=== PATIENT | female | born 1945 | race Caucasian/White ===

== ENCOUNTER 2020-08-06 09:30 | Outpatient (CLI) | payer MEDICARE, OTHER, SELFPAY ==
--- NOTE | 2020-08-14 09:13 | WPDPFTINT ---
PFT Interpretation PFT Interpretation: This PFT met all criteria for ATS standards and reproducibility FEV/FVC post bronchodilator 84% of predicted FEV1 69% or 1.21 liters FVC 57% or 1.45 liters TLC 68% or 3.00 liters RV 82% RV/TLC 49% DLCO 34% when adjusted for alveolar volume but not adjusted for hemoglobin Flow volume loops showed a restrictive ventilatory defect Impression: Restrictive ventilatory defect with severely reduced diffusion capacity. This fits a pattern of ILD but obesity may also contribute to restriction. Clinical correlation is advised.
--- NOTE | 2020-08-14 09:35 | WPDSIXMINUTE ---
Six Minute Walk Six Minute Walk: The patients O2 sats started at 94% and dropped as low as 90% Total walk distance 182.88 meters conclusion: This patient does not qualify for home oxygen therapy
== END 2020-08-06 09:31 | disposition home or self-care (01) ==
LOC: ANHPFT 09:33
PROVIDERS: Visit Provider Nurse Practitioner
DX: J84.9 Interstitial pulmonary disease, unspecified (principal)
CPT/HCPCS: 94060; 94618; 94726; 94729

== ENCOUNTER 2020-09-14 11:10 | Inpatient (IN) | payer MEDICARE, OTHER, SELFPAY ==
[2020-09-14] VITALS (32 sets, daily range): BP systolic 120–193; BP diastolic 33–95; PULSE 77–110; RESP 14–45; TEMP 36.2–36.9; O2SAT 83–100; BMI 36.1
--- NOTE | ~2020-09-14 | CT_ITS ---
EXAMINATION: CT chest high resolution wo ar DATE: 09/15/2020 13:35 INDICATION: Interstitial lung disease TECHNIQUE: Computed tomography (CT) of the chest was performed without intravenous contrast. The dose -length product was 585.13 mGy-cm. Automated exposure control and iterative reconstruction technique were employed. COMPARISON: CT dated 09/26/2019 FINDINGS: Status post median sternotomy for CABG. Cardiomegaly. There is atherosclerosis of the aorta and coronary arteries. No significant pleural or pericardial effusion. There is extensive patchy air space consolidation and groundglass opacification throughout all lobes, consistent with pneumonia. Le ss focal consolidation present in the right upper lobe posteriorly. No endobronchial lesions. There i s a 6 mm right upper lobe nodule, image 49. There is a subsolid 1.8 cm right right upper lobe, image 54. There is interlobular septal thickening with a basilar predominance. IMPRESSION: 1. Interlobular septal thickening, patchy groundglass opacification as well as focal areas of airspac e consolidation throughout both lungs. Differential diagnosis includes pneumonia, edema and/or chroni c interstitial lung disease. 2: Focal solid and some solid nodules of the right upper lobe, not seen on prior examination. These a re most likely infectious/inflammatory, although neoplasm is not excluded. Reviewed, dictated and finalized at location A. IMPRESSION: 1. Interlobular septal thickening, patchy groundglass opacification as well as focal areas of airspace consolidation throughout both lungs. Differential diagn osis includes pneumonia, edema and/or chronic interstitial lung disease. 2: Focal solid and some solid nodules of the right upper lobe, not seen on prio r examination. These are most likely infectious/inflammatory, although neoplasm is not excluded.
--- NOTE | ~2020-09-14 | XR_ITS ---
EXAMINATION: XR chest 2V DATE: 09/14/2020 13:33 INDICATION: Shortness of breath. Interstitial lung disease. TECHNIQUE: frontal and lateral views of the chest were obtained. COMPARISON: Chest radiograph dated 10/08/[address] dated 09/26/2019 FINDINGS: Cardiomegaly with pulmonary vascular congestion. Bronchial wall thickening versus peribronchial cuffi ng at the bilateral lower lung zones where there are also increased interstitial and airspace opaciti es. No pleural effusion or pneumothorax. Median sternotomy wires and interval change of prior mitral and tricuspid valve repairs. Three lead pacemaker/AICD seen with leads projecting over the expected l ocations of the right atrial appendage, apex of the right ventricle and overlying the left ventricle likely having traversed the coronary sinus. There is also an epicardial pacemaker with 2 leads termin ating over the lateral side of the right atrium and 2 additional leads projecting over the lateral wa ll of the left ventricle and inferior wall of the right ventricle. IMPRESSION: 1. Interstitial and airspace opacities in the bilateral lower lung zones most likely congestive heart failure related pulmonary edema with differential including pneumonia and atelectasis. 2. Cardiomegaly with change of prior mitral and tricuspid valve repairs. Reviewed, dictated and finalized at location B. IMPRESSION: 1. Interstitial and airspace opacities in the bilateral lower lung zones most l ikely congestive heart failure related pulmonary edema with differential includ ing pneumonia and atelectasis. 2. Cardiomegaly with change of prior mitral and tricuspid valve repairs.
--- NOTE | 2020-09-14 11:50 | ECG_ITS ---
Measurements Intervals Adel Rate: 80 P: -80 VA: 140 QRS: 189 QRSD: 174 T: 9 QT: 417 QTc: 482 Interpretive Statements ELECTRONIC ATRIAL PACEMAKER ELECTRONIC VENTRICULAR PACEMAKER BASELINE WANDER- V5 NO FURTHER INTERPRETATION IS POSSIBLE ATYPICAL ECG Electronically Signed On 09-14-2020 12:50:17 CDT by Nick Ryan D.O.
[2020-09-14 12:44] LABS: Alveolar/Arterial O2 Gradient 168.3 mmHg; Base Excess ABG 0.7 mEq/l (+/-2.0); Fractional Inspired Oxygen 40 %; HCO3 ABG 25.6 mEq/l (22.0-26.0); Oxygen Content ABG 12.4 %vol (16.0-22.0); Oxygen Saturation ABG 93.5 % (95.0-100.0); Oxyhemoglobin 90.6 % THb (90.0-100.0); PCO2 ABG 42.5 mmHg (35.0-45.0); Total Hemoglobin 9.7 g/dL (12.0-18.0); pH ABG 7.398 (7.350-7.450)
[2020-09-14 12:45] LABS: Device NASAL CANNULA; Modified Allen's Test Pass; Site Drawn LEFT RADIAL
[2020-09-14 13:14] LABS: Basophils Absolute Auto 0.1 K/mm3 (0.0-0.1); Basophils Percent Auto 0.3 % (0.2-1.2); Eosinophils Percent Auto 0.2 % (0-4.4); Hematocrit 29.8 % (37.0-47.0); Hemoglobin 8.8 g/dL (12.0-15.0); Immature Granulocyte Absolute 0.24 K/mm3 (0.00-0.031); Immature Granulocyte Percent A 1.3 % (0-0.5); Lymphocytes Absolute Auto 0.23 K/mm3 (0.9-3.2); Lymphocytes Percent Auto 1.3 % (18.3-44.2); Mean Corpuscular HGB Conc 29.5 g/dl (32-36); Mean Corpuscular Hemoglobin 26.7 pg (26-34); Mean Corpuscular Volume 90.6 fl (80-100); Mean Platelet Volume 9.8 fl (7.4-10.4); Monocytes Absolute Auto 0.7 K/mm3 (0.1-0.6); Monocytes Percent Auto 4.1 % (2.6-8.5); Neutrophils Absolute Auto 16.5 K/mm3 (1.3-6.7); Neutrophils Percent Auto 92.8 % (45.5-73.1); Platelet Count Result 351 k/mm3 (150-375); Red Blood Count 3.29 M/mm3 (4.2-5.4); Red Cell Distribution Width 18.3 % (11.5-14.5); White Blood Count 17.8 K/mm3 (4.5-10.0)
[2020-09-14 13:19] LABS: Platelet Estimate Adequate (Adequate)
[2020-09-14 13:20] LABS: Anisocytosis 1+ (NORMAL); Hypochromasia 1+ (NORMAL)
[2020-09-14 13:24] LABS: Anion Gap 11 mmol/L (8-16); Blood Urea Nitrogen 43 mg/dL (7-17); Calcium 9.7 mg/dL (8.4-10.2); Carbon Dioxide 31 mmol/L (22-30); Chloride 98 mmol/L (98-107); Estimated CRCL calculation 30 ml/min; Estimated Glomerular Filt Rate 32; Glucose 268 mg/dL (65-105); Potassium 4.8 mmol/L (3.4-5.0); Sodium 140 mmol/L (137-145)
--- NOTE | 2020-09-14 13:35 | ED.SOB ---
HPI - SOB/Dyspnea General Chief Complaint: Shortness of Breath/Dyspnea Stated Complaint[facility] Time Seen by Provider: 09/14/20 12:16 Source: patient Mode of arrival: ambulatory Limitations: clinical condition History of Present Illness HPI Narrative: 75-year-old female She was in the infusion center where she was supposed to get an infusion of rituximab for lupus However prior to receiving the medication she got up to go to the bathroom and got shortness of breath So the procedure was terminated and she was sent to the ER for evaluation where she arrives without shortness of breath She has lung disease which she does not describe very well and is followed by measurement technician at [facility] and which she says has progressively gotten worse She wears oxygen at home, 5 L with activity 2 L the rest of the time, she did wear her oxygen at the infusion center today She says that when she walks around at home without her oxygen and her oxygen saturations jumped into the 70s Piecing together what I can from rheumatology and endocrine notes that are in our system, it sounds like she has a working diagnosis of 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; additionally she has a pacer and presumably AF and is on eliquis Attempts to reach her measurement technician were unsuccessful all we got was an answering machine Interestingly enough, there is a report from the pulmonary function lab here from a month ago saying that she passed a 6-minute walk without desaturating and does not qualify for home oxygen based on that result Which is a interesting contrast to the fact that she apparently wears oxygen all the time and can desaturate into the 70s with negligible exertion without it Anyhow she does not have a cough or a fever or chest pain or swelling in her legs at this time MD elicited complaint: shortness of breath Onset (ago): hour(s) Related Data Home Medications Medication Instructions Recorded Confirmed acetaminophen 500 mg tablet 500 mg PO Q6H PRN 11/22/19 06/26/20 ascorbate calcium (vitamin C) 500 500 mg PO DAILY 11/22/19 06/26/20 mg tablet calcitriol 0.25 mcg capsule 0.25 mcg PO 3XW 11/22/19 06/26/20 cholecalciferol (vitamin D3) 25 1,000 unit PO DAILY 11/22/19 06/26/20 mcg (1,000 unit) capsule diltiazem HCl 90 mg tablet 90 mg PO TID 11/22/19 06/26/20 ferrous sulfate 325 mg (65 mg 325 mg PO BID 11/22/19 06/26/20 iron) tablet fluticasone prop.50 mcg spray NASAL 11/22/19 06/26/20 spray,suspen-sod.chloride 0.9% nasal spray kit furosemide 40 mg tablet 40 mg PO QAM 11/22/19 06/26/20 latanoprost 0.005 % eye drops 1 drop EACH EYE QPM 11/22/19 06/26/20 levothyroxine 50 mcg tablet 50 mcg PO DAILY 11/22/19 06/26/20 loratadine 10 mg capsule 10 mg PO DAILY 11/22/19 06/26/20 magnesium oxide 400 mg PO BID 11/22/19 06/26/20 nitroglycerin 0.4 mg sublingual 0.4 mg SUBLINGUAL Q5M PRN 11/22/19 06/26/20 tablet pravastatin 40 mg tablet 40 mg PO DAILY 11/22/19 06/26/20 ranitidine HCl 150 mg capsule 150 mg PO DAILY 11/22/19 12/07/19 rituximab 10 mg/mL IVPB 11/22/19 06/26/20 concentrate,intravenous rivaroxaban 15 mg tablet 15 mg PO DAILY 11/22/19 06/26/20 vitamins A,C,R-yqgu-eubine PO 11/22/19 06/26/20 insulin NPH-regular 70-30 U-100 See Rx Instructions SUB-Q BID ml 06/15/20 06/26/20 insulin 100 unit/mL subcutaneous pen prednisone 5 mg tablet 10 mg PO DAILY tablet 06/18/20 06/26/20 brimonidine drp 09/14/20 famotidine [Pepcid] 20 mg PO DAILY 09/14/20 Allergies Allergy/AdvReac Type Severity Reaction Status Date / Time iodine Allergy Unknown Unknown Verified 09/14/20 09:34 Penicillins Allergy Unknown Unknown Verified 09/14/20 09:34 Contrast Media Allergy Unknown Unknown Uncoded 09/14/20 09:34 Review of Systems Review of Systems: All systems reviewed & are unremarkable except as noted in HPI and below Constitutional: Constitutional: Denies chills, Reports fatigue, Denies fever(s), Denies headache(s) and Reports weakness
[2020-09-14 13:42] LABS: NT Pro B Type Natriuretic Pept 4260 PG/ML (5-100); Troponin I 0.049 ng/mL (0.000-0.034)
[2020-09-14] MEDS: BUMETANIDE INJ 1 MG/4 ML VIAL IV PUSH (14:31)
--- NOTE | 2020-09-14 18:00 | PM.IMHP ---
H&P: HPI History of Present Illness Date/Time: 09/14/20 18:00 <Kandace Hanna PA-C - Last Filed: 09/14/20 21:56> Chief complaint: Shortness of breath. <Kandace Hanna PA-C - Last Filed: 09/14/20 21:56> Narrative: Geri Jaeger is a very pleasant 75-year-old female with multiple medical problems including chronic respiratory failure on home oxygen, systemic lupus erythematosus with interstitial lung disease and chronic bronchiectasis, obstructive sleep apnea, coronary artery disease with history of stent, valvular heart disease status post mitral valve and tricuspid valve repair paroxysmal atrial fibrillation/flutter on long-term anticoagulation, chronic kidney disease stage 3 to 4, interstitial nephritis on chronic low-dose prednisone, anemia, type 2 diabetes mellitus, and several other comorbidities who presented to the emergency department earlier today for evaluation of shortness of breath. She was scheduled to have a rituximab infusion today, just prior to receiving that infusion she got up to use the restroom. Upon returning to her room she was more short of breath than is her baseline and was directed to the emergency department. At baseline she is markedly handicapped from doing much of anything due to her respiratory status, to the point where she does not really leave the house and her sister does a majority of the cooking and cleaning. She is on 5 L nasal cannula at home, and reports that her SpO2 will dip down into the 80s when ambulating from room to room despite being on this oxygen. Interestingly, a 6 minute walk test within last month showed that she did not qualify for oxygen. In any event she has been feeling more short of breath than her baseline ?for a while.? She has an occasional cough which she contributes to postnasal drip which has been ongoing since May of 2020. She has been treated with antibiotics for possible pneumonia several times since this summer, reportedly due to include the presence of ongoing leukocytosis, but she sees no change in her cough despite taking the antibiotics. She denies lower extremity edema but has continued to gain weight despite eating better and attempt to lose weight, stating she mainly gains weight in her abdomen. She has not had fever, chills, or sweats. No sick contacts. No anosmia but she has mild dysgeusia although it sounds like this has been going on for months as well. No chest pain, pleuritic pain, orthopnea, PND, or lower extremity edema. She denies dysphagia and concerns for aspiration. Of note she tells me that some doctors have told her that she has congestive heart failures and others have told her that she does not. It is noted that she had an echocardiogram in November 2019 which showed normal LV size and function with an EF of 55% as well as mild pulmonary hypertension. <Kandace Hanna PA-C - Last Filed: 09/14/20 21:56> Review of Systems Review of Systems: Narrative: Twelve systems were reviewed with pertinent positives and negatives as per HPI. She has multiple chronic underlying issues due to her lupus including myalgias, arthralgias, dry eyes, dry mouth, headaches, morning stiffness, etc. she denies sick contacts. She has occasional dysphagia but denies concerns for aspiration. No fever, chills, or sweats. She denies nausea and vomiting. No diarrhea. No dysuria. She has been having intermittent episodes of hypoglycemia, is closely monitored by her talent acquisition project manager. Hemoglobin A1c was 7.0% in June 2020. Except as documented, all other systems were reviewed and are negative. <Kandace Hanna PA-C - Last Filed: 09/14/20 21:56> [facility] Past Medical History Medical History: Medical History Chronic anemia Chronic back pain Chronic kidney disease, stage 3 Baseline creatinine ranges from 1.3 to 1.60. Chronic respiratory failure with hypoxia Coronary artery disease With histor
--- NOTE | 2020-09-14 18:21 | ADMGEN ---
This patient, Geri Jaeger, was admitted to IMU Room 200-01. Patient/family oriented to hospital policies and general routines including ID bracelet, bed and alarms, visiting hours, pain management, procedures, bathroom and other care routines, personal items, smoking policy, room service/diet, and visiting hours. Information on how to activate the Rapid Response Team has been discussed. Patient/Family are encouraged to report perceived risks to care and to ask questions if they do not understand what they are told or what they should do.
[2020-09-14 18:55] LABS: Glucose Point of Care 87 (65-105)
[2020-09-14 19:09] LABS: Troponin I 0.062 ng/mL (0.000-0.034)
[2020-09-14] MEDS: FUROSEMIDE INJ 40 MG/4 ML VIAL IV PUSH (19:57)
[2020-09-14 20:44] LABS: Glucose Point of Care 153 (65-105)
[2020-09-14 21:51] LABS: Hemoglobin A1C 5.3 % (<5.7)
[2020-09-14 22:04] LABS: Troponin I 0.069 ng/mL (0.000-0.034)
[2020-09-14] MEDS: dilTIAZem HCL 30 MG TABLET 90 MG PO (22:47)
[2020-09-14] MEDS: RIVAROXABAN 15 MG TABLET PO (22:47)
[2020-09-14] MEDS: LATANOPROST 0.005% OP SOLN 2.5 ML BTL 1 DROP EACH EYE (22:47)
[2020-09-14] MEDS: MAGNESIUM OXIDE 400 MG TABLET PO (23:29)
[2020-09-14] MEDS: BRIMONIDINE TARTRATE 0.2% OP SOLN 5 ML BTL 1 DROP EACH EYE (23:29)
[2020-09-14] MEDS: CHOLECALCIFEROL 1,000 UNITS TABLET 1000 UNITS PO (23:29)
[2020-09-14] MEDS: FERROUS SULFATE 324 MG TABLET PO (23:29)
[2020-09-14] MEDS: FAMOTIDINE 20 MG TABLET PO (23:29)
[2020-09-15] VITALS (14 sets, daily range): BP systolic 118–155; BP diastolic 42–59; PULSE 80–86; RESP 10–22; TEMP 35.8–36.7; O2SAT 90–97
--- NOTE | 2020-09-15 | ECHO_ITS ---
Patient Info Name: Geri Jaeger Age: 75 years : 1945 Gender: Female Ht: 62 in Wt: 191 lbs BSA: 1.99 m2 HR: 81 bpm BP: 155 / 59 mmHg Heart Rhythm: Paced Technical Quality: Fair Exam Date: 09/15/2020 8:55 AM Exam Location: [facility] Pulmonary Patient Status: Inpatient Admit Date: 09/14/2020 Staff Ordering Physician: Margarita Hartley MD Paleobotanist: Geri Pretty [facility] Attending Provider: Aleja Sullivan MD Referring Physician: Naeem ARROYO; Exam Type: CA echo doppler color flow Study Info Complete two-dimensional, color flow and Doppler transthoracic echocardiogram is performed. Summary 1. Complete two-dimensional, color flow and Doppler transthoracic echocardiogram is performed. 2. Left ventricular chamber dimension is mildly enlarged. 3. Left ventricular systolic function is normal, estimated at 60-65%. 4. There is mildly increased left ventricular wall thickness. 5. The left ventricular diastolic function is abnormal. 6. Left atrial chamber dimension is severely enlarged. 7. There is mild regurgitation of the annuloplasty ring prosthetic mitral valve. 8. There is mild tricuspid valve regurgitation. 9. Mild pulmonary hypertension, estimated pulmonary arterial systolic pressure is 40 mmHg. 10. There is mild pulmonic regurgitation. 11. There is small pericardial effusion. Left Ventricle Left ventricular chamber dimension is mildly enlarged. Left ventricular systolic function is normal, estimated at 60-65%. There is mildly increased left ventricular wall thickness. The left ventricular diastolic function is abnormal. Right Ventricle Right ventricular chamber dimension is normal. Right ventricular systolic function is normal. Left Atria Left atrial chamber dimension is severely enlarged. Right Atria Right atrial chamber dimension is normal. Atrial Septum Intact interatrial septum visualized by color flow imaging. Aortic Valve The aortic valve is trileaflet. There is mild aortic valve sclerosis. There is no aortic valve stenosis. There is trace aortic valve regurgitation. Pulmonic Valve The pulmonic valve is normal. There is no pulmonic valve stenosis. There is mild pulmonic regurgitation. Mitral Valve There is no stenosis of the annuloplasty ring prosthetic mitral valve. There is mild regurgitation of the annuloplasty ring prosthetic mitral valve. Tricuspid Valve The tricuspid valve leaflets are normal. There is no significant tricuspid valve stenosis. There is mild tricuspid valve regurgitation. Mild pulmonary hypertension, estimated pulmonary arterial systolic pressure is 40 mmHg. Pericardium/Pleural The pericardium appears increased echogenicity of the pericardium. There is small pericardial effusion. Inferior Vena Cava Normal inferior vena cava with <50% collapse upon inspiration consistent with elevated right atrial pressure, 10 mmHg. Aorta The aortic root size at the sinus of Valsalva is normal. There is mild aortic atherosclerosis. Left Ventricular Outflow Tract Name Value Normal LVOT 2D LVOT Diameter 2.2 cm LVOT Doppler
[2020-09-15 04:43] LABS: Hematocrit 30.6 % (37.0-47.0); Hemoglobin 8.8 g/dL (12.0-15.0); Mean Corpuscular HGB Conc 28.8 g/dl (32-36); Mean Corpuscular Volume 90.5 fl (80-100); Mean Platelet Volume 9.8 fl (7.4-10.4); Platelet Count Result 346 k/mm3 (150-375); Red Blood Count 3.38 M/mm3 (4.2-5.4); White Blood Count 14.4 K/mm3 (4.5-10.0)
[2020-09-15 04:55] LABS: Anion Gap 10 mmol/L (8-16); Blood Urea Nitrogen 44 mg/dL (7-17); Calcium 9.8 mg/dL (8.4-10.2); Carbon Dioxide 36 mmol/L (22-30); Chloride 96 mmol/L (98-107); Estimated CRCL calculation 29 ml/min; Estimated Glomerular Filt Rate 32; Glucose 71 mg/dL (65-105); Magnesium 2.4 mg/dL (1.6-2.3); Potassium 3.8 mmol/L (3.4-5.0); Sodium 142 mmol/L (137-145)
[2020-09-15 05:05] LABS: CRP 1.2 mg/dL (<1.0)
[2020-09-15] MEDS: LEVOTHYROXINE SODIUM 50 MCG TABLET PO (05:37)
[2020-09-15] MEDS: dilTIAZem HCL 30 MG TABLET 90 MG PO ×3 (05:37→21:01)
[2020-09-15 07:49] LABS: Free T4 Free Thyroxine Reflex 0.87 ng/dL (0.78-2.19)
--- NOTE | 2020-09-15 08:50 | PM.CNPUL ---
Assessment and Plan Assessment and plan (1) Leukocytosis: Qualifiers: Leukocytosis type: unspecified Qualified Code(s): D72.829 - Elevated white blood cell count, unspecified Code(s): D72.829 - Elevated white blood cell count, unspecified Status: Acute Assessment and Plan: Likely due to chronic prednisone use (2) Obstructive sleep apnea on CPAP: Code(s): G47.33 - Obstructive sleep apnea (adult) (pediatric); Z99.89 - Dependence on other enabling machines and devices Status: Acute Assessment and Plan: continue home CPAP settings QHS (3) Interstitial lung disease: Code(s): J84.9 - Interstitial pulmonary disease, unspecified Status: Acute Assessment and Plan: This may be due to Amiodarone Toxicity but she was only on a small dose of 100 mg daily at the time. Usually toxicity is seen at much higher doses. Other differentials included hypersenstivity pneumonitis or NSIP. - will order HRCT of chest - repeat Autoimmune workup - hypersensitivity panel - would recommend referral to Endocrinology to wean off prednisone unless this is being used by Rheumatology to treat her SLE - continue oxygen to maintain sats of 90-93% - If the diagnosis is unclear and her lung function is deteriorating, I've recommend to her that she needs a VATS lung biopsy for definitive diagnosis. History of Present Illness History of Present Illness Consult date: 09/15/20 Chief complaint: Shortness of breath. 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 She was not in respiratory distress. She denies fever, chills night sweats, loss smell or taste, diarrhea, n/v/ body aches. She did have a cough productive of brownish/yellowish sputum which has cleared up since taking Ciprofloxacin according to her for 20 days. She has chronic leukocytosis with neutrophilia likely from chronic prednisone use. She was suspected of having ILD in late 2015 by Family Psychologist at [facility] and she apparently had patch bilateral atypical infiltrates on CT chest that were waxing and waning. She was only on 100 mg of Amiodarone at the time but it was suggested that it be discontinued in light of developing ILD. The patient refused the recommend lung biopsy throughout these years. She's a life long non smoker. I view her CT chest from September 2019 ( non high resolution) which showed a mosaic pattern of ground glass opacities with bronchiectasis at the bases but no evidence of UIP/IPF pattern then. Review of Systems Review of Systems: All systems reviewed & are unremarkable except as noted in HPI and below PMFSH Past Medical History Medical History (Updated 09/15/20 @ 09:06 by Margarita Hartley MD) Chronic anemia Chronic back pain Chronic kidney disease, stage 3 Baseline creatinine ranges from 1.3 to 1.60. Chronic respiratory failure with hypoxia Coronary artery disease With history of stent in 2011. Current use of rat exterminator anticoagulation Essential hypertension Glaucoma History of pacemaker Hyperlipidemia Hypothyroidism Insulin dependent type 2 diabetes mellitus Hemoglobin A1c was 7.0% in June 2020. Interstitial lung disease Interstitial nephritis On chronic low-dose prednisone. Obstructive sleep apnea on CPAP Osteoarthritis Paroxysmal atrial fibrillation Systemic lupus erythematosus Surgical History Surgical History (Updated 09/14/20 @ 21:37 by Kandace Hanna PA-C) Biventricular automatic implantable cardioverter defibrillator in situ History of heart artery stent (~2011) History of hysterectomy History of mitral valve repair (~2014) History of tricuspid valve repair (~2014) Family History Family History Other F
[2020-09-15 09:01] LABS: Glucose Point of Care 73 (65-105)
[2020-09-15] MEDS: FAMOTIDINE 20 MG TABLET PO ×2 (10:44→16:10)
[2020-09-15] MEDS: PRAVASTATIN SODIUM 20 MG TABLET 40 MG PO (10:45)
[2020-09-15] MEDS: predniSONE 20 MG TABLET 60 MG PO (10:45)
[2020-09-15] MEDS: ASCORBIC ACID 500 MG TABLET PO (10:46)
[2020-09-15] MEDS: CHOLECALCIFEROL 1,000 UNITS TABLET 1000 UNITS PO ×2 (10:46→16:10)
[2020-09-15] MEDS: FUROSEMIDE INJ 40 MG/4 ML VIAL IV PUSH (10:47)
[2020-09-15] MEDS: MAGNESIUM OXIDE 400 MG TABLET PO ×2 (10:47→16:11)
[2020-09-15] MEDS: BRIMONIDINE TARTRATE 0.2% OP SOLN 5 ML BTL 1 DROP EACH EYE ×2 (10:47→16:10)
[2020-09-15] MEDS: FERROUS SULFATE 324 MG TABLET PO ×2 (10:48→16:10)
--- NOTE | 2020-09-15 11:35 | P.PNIM_ITS ---
Progress Note: A&P Assessment and Plan (1) Acute diastolic CHF (congestive heart failure): Code(s): I50.31 - Acute diastolic (congestive) heart failure Status: Acute Assessment and Plan: * Historically her ejection fraction is 55% * however clinically she presents with history and findings and imaging consistent with acute diastolic congestive heart failure * she does have underlying chronic interstitial lung disease as well * clinically this is not infection or aspiration or PE * echocardiogram pending * continue diuresis (2) Leukocytosis: Qualifiers: Leukocytosis type: unspecified Qualified Code(s): D72.829 - Elevated white blood cell count, unspecified Code(s): D72.829 - Elevated white blood cell count, unspecified Status: Acute Assessment and Plan: * likely due to chronic steroid use * patient reportedly was taking this for SLE and tapering down * will need outpatient follow-up with Rheumatology (3) Systemic lupus erythematosus: Qualifiers: Systemic lupus erythematosus type: unspecified Systemic lupus erythem atosus organ involvement: unspecified Qualified Code(s): M32.9 - Systemic lupus erythematosus, unspecified Code(s): M32.9 - Systemic lupus erythematosus, unspecified Status: Acute Assessment and Plan: * continue outpatient prednisone does * follow-up with rheumatology for taper (4) Interstitial lung disease: Code(s): J84.9 - Interstitial pulmonary disease, unspecified Status: Acute Assessment and Plan: * pulmonology consultation reviewed and appreciated * HRCT pending (5) Chronic respiratory failure with hypoxia: Code(s): J96.11 - Chronic respiratory failure with hypoxia Status: Acute Assessment and Plan: * continue oxygen titrating to maintain saturation 90% above (6) Obstructive sleep apnea on CPAP: Code(s): G47.33 - Obstructive sleep apnea (adult) (pediatric); Z99.89 - Dependence on other enabling machines and devices Status: Acute Assessment and Plan: * continue home settings (7) Insulin dependent type 2 diabetes mellitus: Code(s): E11.9 - Type 2 diabetes mellitus without complications; Z79.4 - continuous churn buttermaker (current) use of insulin Status: Acute Assessment and Plan: * patient was receiving 100 units of NPH in split dose as an outpatient, 78 in a.m. and 22 and p.m. * will hold that and initiate lower dose basal insulin 10:00 p.m. hypoglycemia this morning, likely due to dietary change * glargine 22 units q.h.s. * continue pre meal sliding scale aspartate * Monitor response (8) Paroxysmal atrial fibrillation: Code(s): I48.0 - Paroxysmal atrial fibrillation Status: Acute Assessment and Plan: * continue renal adjusted dose of rivaroxaban (9) Chronic kidney disease, stage 3: Qualifiers: Chronic kidney disease stage 3 subtype: unspecified whether 3a or 3b Qualified Code(s): N18.30 - Chronic kidney disease, stage 3 unspecified Code(s): N18.30 - Chronic kidney disease, stage 3 unspecified Status: Acute Assessment and Plan: * relatively stable * monitor with diuresis (10) Chronic anemia: Code(s): D64.9 - Anemia, unspecified Status: Acute Assessment and Plan: * likely anemia of chronic disease, including chronic kidney disease * previously evaluated as outpatient * continue to monitor (11) Hypothyroidism: Qualifiers: Hypothyroidism typ
--- NOTE | 2020-09-15 11:35 | PM.IMPN ---
Progress Note: A&P Assessment and Plan (1) Acute diastolic CHF (congestive heart failure): Code(s): I50.31 - Acute diastolic (congestive) heart failure Status: Acute Assessment and Plan: Historically her ejection fraction is 55% however clinically she presents with history and findings and imaging consistent with acute diastolic congestive heart failure she does have underlying chronic interstitial lung disease as well clinically this is not infection or aspiration or PE echocardiogram pending continue diuresis (2) Leukocytosis: Qualifiers: Leukocytosis type: unspecified Qualified Code(s): D72.829 - Elevated white blood cell count, unspecified Code(s): D72.829 - Elevated white blood cell count, unspecified Status: Acute Assessment and Plan: likely due to chronic steroid use patient reportedly was taking this for SLE and tapering down will need outpatient follow-up with Rheumatology (3) Systemic lupus erythematosus: Qualifiers: Systemic lupus erythematosus type: unspecified Systemic lupus erythematosus organ involvement: unspecified Qualified Code(s): M32.9 - Systemic lupus erythematosus, unspecified Code(s): M32.9 - Systemic lupus erythematosus, unspecified Status: Acute Assessment and Plan: continue outpatient prednisone does follow-up with rheumatology for taper (4) Interstitial lung disease: Code(s): J84.9 - Interstitial pulmonary disease, unspecified Status: Acute Assessment and Plan: pulmonology consultation reviewed and appreciated HRCT pending (5) Chronic respiratory failure with hypoxia: Code(s): J96.11 - Chronic respiratory failure with hypoxia Status: Acute Assessment and Plan: continue oxygen titrating to maintain saturation 90% above (6) Obstructive sleep apnea on CPAP: Code(s): G47.33 - Obstructive sleep apnea (adult) (pediatric); Z99.89 - Dependence on other enabling machines and devices Status: Acute Assessment and Plan: continue home settings (7) Insulin dependent type 2 diabetes mellitus: Code(s): E11.9 - Type 2 diabetes mellitus without complications; Z79.4 - buttermaker helper (current) use of insulin Status: Acute Assessment and Plan: patient was receiving 100 units of NPH in split dose as an outpatient, 78 in a.m. and 22 and p.m. will hold that and initiate lower dose basal insulin 10:00 p.m. hypoglycemia this morning, likely due to dietary change glargine 22 units q.h.s. continue pre meal sliding scale aspartate Monitor response (8) Paroxysmal atrial fibrillation: Code(s): I48.0 - Paroxysmal atrial fibrillation Status: Acute Assessment and Plan: continue renal adjusted dose of rivaroxaban (9) Chronic kidney disease, stage 3: Qualifiers: Chronic kidney disease stage 3 subtype: unspecified whether 3a or 3b Qualified Code(s): N18.30 - Chronic kidney disease, stage 3 unspecified Code(s): N18.30 - Chronic kidney disease, stage 3 unspecified Status: Acute Assessment and Plan: relatively stable monitor with diuresis (10) Chronic anemia: Code(s): D64.9 - Anemia, unspecified Status: Acute Assessment and Plan: likely anemia of chronic disease, including chronic kidney disease previously evaluated as outpatient continue to monitor (11) Hypothyroidism: Qualifiers: Hypothyroidism type: unspecified Qualified Code(s): E03.9 - Hypothyroidism, unspecified Code(s): E03.9 - Hypothyroidism, unspecified Status: Acute Assessment and Plan: continue thyroid replacement therapy Subjective Date/time seen: 09/15/20 11:35 Interval history: 09/15: admitted 09/14 with increased SCHULTZ. Feels better after diuresis. Still with mild SCHULTZ. Mild puffiness of ankles. Hx SLE with ILD and CKD3. Chroni
[2020-09-15 13:26] LABS: Glucose Point of Care 150 (65-105)
--- NOTE | 2020-09-15 16:45 | PC.NURSE ---
This patient, Geri Jaeger, was transferred to [facility] on 09/15/20 at 1645. Personal belongings sent with patient. Report given to Lorena GONZALEZ. Appropriate documentation sent with patient.
--- NOTE | 2020-09-15 16:50 | PC.NURSE ---
This patient, Geri Jaeger, was received from IMU on 09/15/20 at 1650. Personal belongings list checked and signed. Patient/family oriented to unit policies and routines
[2020-09-15 16:56] LABS: Glucose Point of Care 330 (65-105)
[2020-09-15] MEDS: polyethylene glycoL 3350 17 GM POWD.PACK PO (17:01)
[2020-09-15] MEDS: ACETAMINOPHEN 500 MG TABLET PO (18:00)
[2020-09-15] MEDS: INSULIN ASPART (*BKC) 100 UNITS/ML SUB-Q ×2 (18:01→21:02)
[2020-09-15 18:02] LABS: Glucose Point of Care 376 (65-105)
[2020-09-15] MEDS: LATANOPROST 0.005% OP SOLN 2.5 ML BTL 1 DROP EACH EYE (20:17)
[2020-09-15] MEDS: FLUTICASONE PROPIONATE 0.05% NA SPR 16 GM BTL (*BKC) 1 SPRAY NASAL (20:18)
[2020-09-15] MEDS: RIVAROXABAN 15 MG TABLET PO (20:18)
[2020-09-15] MEDS: INSULIN GLARGINE (*BKC) 100 UNITS/ML 22 UNITS SUB-Q (21:02)
[2020-09-15 21:09] LABS: Glucose Point of Care > 500 (65-105)
--- NOTE | 2020-09-16 01:19 | PC.NURSE ---
Daylight Savings Time For Daylight Savings Time Ending in the Fall - Clocks are moved back. For Daylight Savings Time Beginning in the Spring - Clocks are moved ahead. For [facility], the time of change occurs at 0200 hrs. Time is taken from the concrete curer. This entry on the patient's chart recognizes the change in time reflected during documentation. Example: 2 entries for vital signs may be charted for 0200 hrs.
[2020-09-16 01:32] LABS: Glucose Point of Care 394 (65-105)
[2020-09-16] MEDS: INSULIN ASPART (*BKC) 100 UNITS/ML SUB-Q ×4 (01:48→16:12)
[2020-09-16 06:00] VITALS: BP 132/51; PULSE 80; RESP 16; TEMP 36.2; O2SAT 95
[2020-09-16 06:11] LABS: Anion Gap 6 mmol/L (8-16); Blood Urea Nitrogen 43 mg/dL (7-17); Calcium 9.1 mg/dL (8.4-10.2); Carbon Dioxide 37 mmol/L (22-30); Chloride 92 mmol/L (98-107); Estimated CRCL calculation 27 ml/min; Estimated Glomerular Filt Rate 29; Glucose 298 mg/dL (65-105); Potassium 4.6 mmol/L (3.4-5.0); Sodium 135 mmol/L (137-145)
[2020-09-16] MEDS: LEVOTHYROXINE SODIUM 50 MCG TABLET PO (06:20)
[2020-09-16] MEDS: dilTIAZem HCL 30 MG TABLET 90 MG PO ×3 (06:20→22:03)
[2020-09-16 08:00] LABS: Glucose Point of Care 235 (65-105)
[2020-09-16] MEDS: ASCORBIC ACID 500 MG TABLET PO (08:03)
[2020-09-16] MEDS: FUROSEMIDE INJ 40 MG/4 ML VIAL IV PUSH (08:03)
[2020-09-16] MEDS: FLUTICASONE PROPIONATE 0.05% NA SPR 16 GM BTL (*BKC) 1 SPRAY NASAL ×2 (08:03→20:41)
[2020-09-16] MEDS: CHOLECALCIFEROL 1,000 UNITS TABLET 1000 UNITS PO ×2 (08:03→16:10)
[2020-09-16] MEDS: ASPIRIN 81 MG CHEWABLE TABLET PO (08:03)
[2020-09-16] MEDS: FERROUS SULFATE 324 MG TABLET PO ×2 (08:03→16:11)
[2020-09-16] MEDS: FAMOTIDINE 20 MG TABLET PO ×2 (08:03→16:10)
[2020-09-16] MEDS: MAGNESIUM OXIDE 400 MG TABLET PO ×2 (08:03→16:10)
[2020-09-16] MEDS: PRAVASTATIN SODIUM 20 MG TABLET 40 MG PO (08:04)
[2020-09-16] MEDS: predniSONE 2.5 MG TABLET 7.5 MG PO (08:04)
[2020-09-16] MEDS: BRIMONIDINE TARTRATE 0.2% OP SOLN 5 ML BTL 1 DROP EACH EYE ×2 (08:05→16:14)
--- NOTE | 2020-09-16 09:49 | PM.CNCAR ---
Assessment and Plan Assessment and plan (1) Interstitial lung disease: Code(s): J84.9 - Interstitial pulmonary disease, unspecified Status: Acute (2) Chronic respiratory failure with hypoxia: Code(s): J96.11 - Chronic respiratory failure with hypoxia Status: Acute Assessment and Plan: I see no significant evidence of systolic nor diastolic heart failure. Given her history of lupus and previous open heart surgery, there could be consideration of restriction or constriction but there is no calcification seen over pericardium. I did talk to Radiology today who did not think there is significant pericardial thickening. Obviously this could be a situation that a left right heart catheterization could be performed as an outpatient through her primary naphthol soaping machine operator for further determination /evaluation. The likelihood is that her worsening respiratory status is related to underlying lung disease +/- volume overload from a combination of lung disease and renal failure. Would continue IV diuretics for another 24 hours and transition back to oral diuretics. Anticipate discharge within the next 1-2 days and follow-up with her primary naphthol soaping machine operator. (3) CAD (coronary artery disease): Code(s): I25.10 - Atherosclerotic heart disease of [place] coronary artery without angina pectoris Status: Acute Assessment and Plan: no clear anginal symptoms. (4) Current use of youth minister anticoagulation: Code(s): Z79.01 - pierce and shave press operator (current) use of anticoagulants Status: Acute Assessment and Plan: on anticoagulation (5) Paroxysmal atrial fibrillation: Code(s): I48.0 - Paroxysmal atrial fibrillation Status: Acute Assessment and Plan: on anticoagulation History of Present Illness History of Present Illness Consult date/time: 09/16/20 09:49 Requesting physician: Daniel Cool MD Consult reason: congestive heart failure and shortness of breath Reason For Visit: Shortness of breath. 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 Pressley. She has a history of coronary disease and previous stent 2011. She also has a history of mitral valve repair, atrial fibrillation on chronic anticoagulation. She also was on amiodarone for a period of time. Via the chart record there is concerned that she has had amiodarone related pulmonary toxicity but confirmed biopsy has not been performed. She also has history of lupus and bronchiectasis. She came to the hospital and was admitted because of worsening shortness of breath. She was supposed to have Rituxan infusion a prior to receiving the infusion she got up to go to the restroom and she became very short of breath. She reportedly has been desaturating also. She is short of breath at home by doing simple things such as walking to the bathroom. She thinks that this is progressively worsening. She has had some abdominal bloating and distention also. She states that this is where her fluid generally accumulates. She has had no lower extremity edema. She has no chest pain, paroxysmal nocturnal dyspnea, orthopnea, palpitations, defibrillations. She was diuresed and is feeling better. Consultation was requested because her symptoms and response to diuretics are out of proportion to LV or RV dysfunction. Review of Systems Review of Systems: All systems reviewed & are unremarkable except as noted in HPI and below Constitutional: Constitutional: Reports weakness Eyes: Eyes: Denies blurry vision ENT: Reports Normal hearing present Cardiovascular: Cardiovascular: Denies chest pain Respiratory: Respiratory: Reports dyspnea Gastrointestinal: Gastrointestinal: Reports bloating Genitourinary: Genitourinary: Denies hematuria and Denies flank pain Musculoskeletal: Musculoskeletal: Denies back pain and Denie
--- NOTE | 2020-09-16 11:22 | PM.PNPUL ---
Progress Note: A&P Assessment and Plan (1) Leukocytosis: Qualifiers: Leukocytosis type: unspecified Qualified Code(s): D72.829 - Elevated white blood cell count, unspecified Code(s): D72.829 - Elevated white blood cell count, unspecified Status: Acute (2) Interstitial lung disease: Code(s): J84.9 - Interstitial pulmonary disease, unspecified Status: Acute Assessment and Plan: Etiology is unclear but appears to be progressing when compared to prior CT scan - will arrange for outpatient bronchoscopy with biopsies in 1-2 weeks - Xarelto to be held 72 hours prior to bronchoscopy - If bronchoscopy does not reveal diagnosis she will need a VATS Lung biopsy. - taper prednisone off with following schedule: prednisone 7.5 mg daily for 14 days then 5 mg daily for 14 days the 2.5 mg daily for 30 days then discontinue. - Endocrinology will need to taper her insulin as prednisone is being tapered. - can be discharge home today tomorrow from pulmonary perspective (3) Systemic lupus erythematosus: Qualifiers: Systemic lupus erythematosus type: unspecified Systemic lupus erythematosus organ involvement: unspecified Qualified Code(s): M32.9 - Systemic lupus erythematosus, unspecified Code(s): M32.9 - Systemic lupus erythematosus, unspecified Status: Acute Subjective Date/time seen: 09/16/20 11:22 Interval history: Feeling better. HRCT of the Chest is showing worsening ILD. She has diffuse bilateral ground glass opacities with mosaic pattern. Inspiratory/Expiratory an Prone films were not done unfortunately. She has subplueral nodules which appear to be inflammatory in nature. She needs invasive diagnostic workup. Review of Systems Review of Systems: All systems reviewed & are unremarkable except as noted in HPI and below Exam Const: General: cooperative, healthy appearing, comfortable, no acute distress, well developed, alert, awake and Physically active HENMT: Head: normal to inspection, No palpable skull fracture present, normocephalic and atraumatic Resp: Effort & Inspection: normal respiratory effort and able to speak in complete sentences Auscultation: crackles (fine inspiratory crackles to bilateral bases ) bilateral and diminished lung sounds Cardio: Jugular venous distension: no JVD Rate: regular rate Rhythm: regular rhythm Heart sounds: S1 normal heart sound present and S2 normal heart sound present Skin: General skin exam: normal color and no rashes or lesions noted Neuro: General: oriented to person, oriented to place, oriented to time and patient oriented x3 Cognition (Neuro): normal cognition Speech: normal speech Gait exam (Neuro): Normal gait present Extrem: General: normal to inspection and no clubbing, cyanosis or edema Psych: Appearance: grossly normal and well kempt Mental Status: mental status grossly normal Objective Data Vital Signs Vital Signs: Vital Signs - 24 hr 09/15/20 14:00 09/15/20 16:00 09/15/20 20:19 Temperature 36.2 C L 36.7 C Pulse Rate 80 80 80 Respiratory Rate 16 16 Blood Pressure 145/56 H 137/49 L Pulse Oximetry 90 95 09/15/20 22:44 09/16/20 06:00 Temperature 36.2 C L Pulse Rate 83 80 Respiratory Rate 22 H 16 Blood Pressure 132/51 L Pulse Oximetry 95 95 Intake/Output Intake/Output: Intake & Output 09/13/20 09/14/20 09/15/20 09/16/20 23:59 23:59 23:59 22:59 Intake Total 2440 590 Output Total 400 2200 Balance -400 240 590 Meds/Results Medications: Active Medications Generic Name Dose Route Start Last Admin Trade Name Freq PRN Reason Stop Dose Admin Acetaminophen 500 mg 09/14/20 21:51 09/15/20 18:00 Acetaminophen 500 Mg Tablet PO 500 mg Q6H PRN Administration Pain Rated 1-3 Ascorbic Acid 500 mg 09/15/20 09:00 09/16/20 08:03 Ascorbic Acid 500 Mg Tablet PO 500 mg DAILY ARRON Administration Aspirin 81 mg 09/15/20 08:00 09/16/20 08:03 Aspirin 81 Mg
[2020-09-16 11:44] LABS: Glucose Point of Care 266 (65-105)
[2020-09-16 14:00] VITALS: BP 118/54; PULSE 105; RESP 19; TEMP 36.5; O2SAT 97
[2020-09-16 14:30] VITALS: O2SAT 94
--- NOTE | 2020-09-16 15:10 | PC.NURSE ---
1400 Cardizem administration late d/t waiting on pharmacy to tube medication. Spoke with them twice.
--- NOTE | 2020-09-16 15:53 | PM.IMPN ---
Progress Note: A&P Assessment and Plan (1) Leukocytosis: Qualifiers: Leukocytosis type: unspecified Qualified Code(s): D72.829 - Elevated white blood cell count, unspecified Code(s): D72.829 - Elevated white blood cell count, unspecified Status: Acute Assessment and Plan: WBC was 20, improved to 14.4 today. no fevers or chills may be steroid related improving. (2) Interstitial lung disease: Code(s): J84.9 - Interstitial pulmonary disease, unspecified Status: Acute Assessment and Plan: Etiology is unclear but appears to be progressing when compared to prior CT scan - will arrange for outpatient bronchoscopy with biopsies in 1-2 weeks - Xarelto to be held 72 hours prior to bronchoscopy - If bronchoscopy does not reveal diagnosis she will need a VATS Lung biopsy. - taper prednisone off with following schedule: prednisone 7.5 mg daily for 14 days then 5 mg daily for 14 days the 2.5 mg daily for 30 days then discontinue. - Endocrinology will need to taper her insulin as prednisone is being tapered. - Thyroid medication adjusted, TSH repeat in 6 weeks. - can be discharge home today tomorrow from pulmonary perspective - Tripper wants further diuresis today, possible discharge tomorrow (3) Systemic lupus erythematosus: Qualifiers: Systemic lupus erythematosus organ involvement: unspecified Systemic lupus erythematosus type: unspecified Qualified Code(s): M32.9 - Systemic lupus erythematosus, unspecified Code(s): M32.9 - Systemic lupus erythematosus, unspecified Status: Acute Assessment and Plan: GAVINO testing Margarita Hartley looking into Lupus as a possiblity labs remain pending today Additional Plan improving shortness of breath, attributed to pulmonary edema. Echocardiogram in November 2019 at an outside facility showed a normal ejection fraction of 55% and no mention of diastolic dysfunction. diuresed with close monitoring of her volume status as well as renal function. leukocytosis which is chronic and may be secondary to chronic steroid use. (improved 17 to 14.4 today) chest CT for further evaluation given history of bronchiectasis. occasional dysphagia thus will obtain a swallow study. wearing 5 L nasal cannula however a more recent 6 minutes walk showed that she had no oxygen requirements. glass or mirror inspector see her while she is here in the hospital consult Dr. Hartley. on long-term anticoagulation. CPAP will be provided for her to use while hospitalized. Renal function and hemoglobin/hematocrit are relatively stable on review of previous labs and will be monitored. Blood pressures have been running a bit high but I suspect these will improve with diuresis. sliding scale insulin, Accu-Cheks, and hypoglycemic protocol. Subjective Date/time seen: 09/16/20 15:53 Geri was resting in bed comfortably. She said she is feeling better and better each day. Will be ready to go home tomorrow or next day, if she has diuresed enough. She is on 5 L O2 NC with spo2 OF 95%. Ordered PT/OT evaluation. Her glucose levels have been >200, changed her Sliding scale insulin dose protocol from Low to Moderate for better control. Continued [facility] glucose checks. TSH = 5.6, will speak with her regarding the last time her Levothyroxine dose was adjusted. Currently will continue the 50mcg daily dose. She does follow with an [facility] in [place] near [facility]. Planning on repeating CT scan in 3 months, biopsy of nodules possibly with an outpatient bronchoscopy. Review of Systems Review of Systems: All systems reviewed & are unremarkable except as noted in HPI and below Constitutional: Constitutional: Denies chills, Denies fatigue, Denies fever(s), Denies headache(s) and Reports weakness Eyes: Eyes: Reports no additional eye complaints, Denies blurry vision and Denies change in vision ENT: Reports Normal hearing present, Denies headache(s), Denies epistaxis,
[2020-09-16 16:19] LABS: Glucose Point of Care 379 (65-105)
[2020-09-16] MEDS: INSULIN GLARGINE (*BKC) 100 UNITS/ML 22 UNITS SUB-Q (20:39)
[2020-09-16] MEDS: RIVAROXABAN 15 MG TABLET PO (20:39)
[2020-09-16] MEDS: LATANOPROST 0.005% OP SOLN 2.5 ML BTL 1 DROP EACH EYE (20:41)
[2020-09-16] MEDS: ACETAMINOPHEN 500 MG TABLET PO (20:47)
[2020-09-16 21:07] LABS: Glucose Point of Care 346 (65-105)
[2020-09-16 21:33] VITALS: BP 111/54; PULSE 81; RESP 18; TEMP 36.4; O2SAT 98
[2020-09-17 05:20] VITALS: BP 110/44; PULSE 80; RESP 16; TEMP 36.1; O2SAT 100
[2020-09-17] MEDS: dilTIAZem HCL 30 MG TABLET 90 MG PO (05:57)
[2020-09-17] MEDS: LEVOTHYROXINE SODIUM 50 MCG TABLET PO (05:57)
[2020-09-17 06:49] LABS: Anion Gap 8 mmol/L (8-16); Blood Urea Nitrogen 53 mg/dL (7-17); Calcium 9.2 mg/dL (8.4-10.2); Carbon Dioxide 34 mmol/L (22-30); Chloride 95 mmol/L (98-107); Estimated CRCL calculation 27 ml/min; Estimated Glomerular Filt Rate 29; Glucose 197 mg/dL (65-105); Potassium 4.4 mmol/L (3.4-5.0); Sodium 137 mmol/L (137-145)
[2020-09-17 07:33] LABS: Glucose Point of Care 156 (65-105)
[2020-09-17] MEDS: CHOLECALCIFEROL 1,000 UNITS TABLET 1000 UNITS PO (08:37)
[2020-09-17] MEDS: ASCORBIC ACID 500 MG TABLET PO (08:37)
[2020-09-17] MEDS: calcitrioL 0.25 MCG CAPSULE PO (08:37)
[2020-09-17] MEDS: PRAVASTATIN SODIUM 20 MG TABLET 40 MG PO (08:37)
[2020-09-17] MEDS: predniSONE 2.5 MG TABLET 7.5 MG PO (08:37)
[2020-09-17] MEDS: FAMOTIDINE 20 MG TABLET PO (08:38)
[2020-09-17] MEDS: FERROUS SULFATE 324 MG TABLET PO (08:38)
[2020-09-17] MEDS: MAGNESIUM OXIDE 400 MG TABLET PO (08:38)
[2020-09-17] MEDS: BRIMONIDINE TARTRATE 0.2% OP SOLN 5 ML BTL 1 DROP EACH EYE (08:39)
[2020-09-17] MEDS: FUROSEMIDE INJ 40 MG/4 ML VIAL IV PUSH (08:40)
[2020-09-17] MEDS: FLUTICASONE PROPIONATE 0.05% NA SPR 16 GM BTL (*BKC) 1 SPRAY NASAL (08:40)
[2020-09-17] MEDS: ACETAMINOPHEN 500 MG TABLET PO (08:51)
--- NOTE | 2020-09-17 09:39 | PM.PNCARD ---
Progress Note: A&P Assessment and Plan (1) Interstitial lung disease: Code(s): J84.9 - Interstitial pulmonary disease, unspecified Status: Acute (2) Chronic respiratory failure with hypoxia: Code(s): J96.11 - Chronic respiratory failure with hypoxia Status: Acute Assessment and Plan: I see no significant evidence of systolic nor diastolic heart failure. Given her history of lupus and previous open heart surgery, there could be consideration of restriction or constriction but there is no calcification seen over pericardium. I did talk to Radiology today who did not think there is significant pericardial thickening. Obviously this could be a situation that a left right heart catheterization could be performed as an outpatient through her primary ent nurse for further determination /evaluation. The likelihood is that her worsening respiratory status is related to underlying lung disease +/- volume overload from a combination of lung disease and renal failure. DC IV furosemide. Restart home dose furosemide 40 mg p.o. daily Okay for discharge and follow-up with Dr. Pressley her primary ent nurse (3) CAD (coronary artery disease): Code(s): I25.10 - Atherosclerotic heart disease of [place] coronary artery without angina pectoris Status: Acute Assessment and Plan: no clear anginal symptoms. (4) Current use of ocean transportation intermediary anticoagulation: Code(s): Z79.01 - [facility] (current) use of anticoagulants Status: Acute Assessment and Plan: on anticoagulation (5) Paroxysmal atrial fibrillation: Code(s): I48.0 - Paroxysmal atrial fibrillation Status: Acute Assessment and Plan: on anticoagulation Subjective Date/time seen: 09/17/20 09:39 Interval history: reason for admission: Shortness of breath, interstitial lung disease Date of service 09/17/2020: She is less short of breath today. She has no swelling. No chest pain Review of Systems Review of Systems: All systems reviewed & are unremarkable except as noted in HPI and below Constitutional: Constitutional: Denies fatigue, Denies headache(s) and Reports weakness Eyes: Eyes: Denies blurry vision ENT: Reports Normal hearing present, Denies headache(s) and Denies neck pain Cardiovascular: Cardiovascular: Denies chest pain and Reports dyspnea Respiratory: Respiratory: Reports dyspnea Gastrointestinal: Gastrointestinal: Reports bloating Genitourinary: Genitourinary: Denies hematuria and Denies flank pain Musculoskeletal: Musculoskeletal: Denies back pain and Denies neck pain Integumentary/Breasts: Skin/Breast: Denies dry skin Neurologic: Reports Normal hearing present, Denies confusion, Denies headache(s) and Reports weakness Psychiatric: Psychiatric: Denies anxiety and Denies confusion Endocrine: Endocrine: Denies fatigue and Denies flushing Hematologic/Lymphatic: Hematologic/Lymphatic: Denies easy bleeding Allergic/Immunologic: Allergic/Immunologic: Denies GI upset with certain foods Exam Narrative: Exam Narrative: Patient is awake and alert. Appears to be in no acute distress Const: General: comfortable and no acute distress; No confusion Orientation/consciousness: No confusion HENMT: General nose exam: Normal nares present Other: nasal cannula in place Eyes: Sclera: sclerae normal Neck: Neck: not supple and no JVD Chest: Other: no reproducible chest wall pain to palpation Resp: Auscultation: rales Cardio: Rate: regular rate Skin: General skin exam: normal color Neuro: General: No confusion Cranial nerves: Yes Normal hearing present Cognition (Neuro): normal cognition Speech: normal speech Extrem: General: no edema Psych: Mental Status: mental status grossly normal Objective Data Vital Signs Vital Signs: Vital Signs - 24 hr 09/16/20 14:00 09/16/20 14:30 09/16/20 21:33 Temperature 36.5 C 36.4 C L Pulse Rate 105 H 81 Respiratory
--- NOTE | 2020-09-17 10:40 | PM.DS ---
DS: Admitting Diagnosis Admitting Diagnosis Admitting Diagnosis: Shortness of breath. DS: Discharge Diagnosis Discharge Diagnosis (1) Leukocytosis: Qualifiers: Leukocytosis type: unspecified Qualified Code(s): D72.829 - Elevated white blood cell count, unspecified Code(s): D72.829 - Elevated white blood cell count, unspecified Status: Acute Assessment and Plan: WBC was 20, improved to 14.4 today. will likely remain elevated somewhat due to steroids - may be steroid related no fevers or chills improving/stable. (2) Interstitial lung disease: Code(s): J84.9 - Interstitial pulmonary disease, unspecified Status: Acute Assessment and Plan: Etiology is unclear but appears to be progressing when compared to prior CT scan -grey percher will arrange for outpatient bronchoscopy with biopsies in 1-2 weeks - Xarelto to be held 72 hours prior to bronchoscopy - If bronchoscopy does not reveal diagnosis she will need a VATS Lung biopsy. - taper prednisone off with following schedule: prednisone 7.5 mg daily for 14 days then 5 mg daily for 14 days the 2.5 mg daily for 30 days then discontinue. - ordered at discharge - Endocrinology will need to taper her insulin as prednisone is being tapered. - also discussed in discharge - Thyroid medication adjusted, TSH repeat in 6 weeks. - discussed in discharge (3) Systemic lupus erythematosus: Qualifiers: Systemic lupus erythematosus type: unspecified Systemic lupus erythematosus organ involvement: unspecified Qualified Code(s): M32.9 - Systemic lupus erythematosus, unspecified Code(s): M32.9 - Systemic lupus erythematosus, unspecified Status: Acute Assessment and Plan: GAVINO testing Margarita Hartley looking into Lupus as a possibility for her worsening labs stable follow up with her Automotive Center Manager that she already has established care with DS: Summary Hospital Course Reason for hospitalization: SOB, CHF, Interstitial Disease, worsening pulmonary function Hospital Course: improved with diuresis and steroids, supportive care Status at Discharge Cognitive/behavioral status at discharge: A and O x4 Functional status at discharge: independent ambulation Overall status at discharge: patient is back to baseline Time Spent with Patient Time attestation: Total time spent providing and/or coordinating discharge services:90minutes Time spent: Greater than 30 minutes Exam Narrative: Exam Narrative: Patient is awake and alert. Appears to be in no acute distress Const: General: cooperative, healthy appearing, comfortable, no acute distress, well developed, alert, awake and Physically active; No confusion Nutritional Appearance: obese Orientation/consciousness: oriented to person, oriented to place, oriented to time, patient oriented x3 and No confusion Other: Resting comfortably on oxygen (5L O2 NC) her baseline use at home. HENMT: Head: normal to inspection, No palpable skull fracture present, normocephalic and atraumatic Ears: external ears normal General nose exam: Normal nares present, No nasal discharge present and no epistaxis Face and sinus: face symmetric Mouth: Yes moist mucous membranes Other: nasal cannula in place Eyes: Conjunctivae: conjunctivae normal Sclera: sclerae normal EOM: EOMs intact bilaterally Neck: Neck: normal visual inspection, not supple and no JVD Chest: Chest palpation & inspection: deferred Other: no reproducible chest wall pain to palpation Resp: Effort & Inspection: normal respiratory effort and able to speak in complete sentences Auscultation: clear to auscultation bilaterally, no rhonchi, no wheezes and diminished lung sounds Other: no characteristic fibrosis crackles heard Cardio: Jugular venous distension: no JVD Rate: regular rate Rhythm: regular rhythm Heart sounds: S1 normal heart sound present, S2 normal heart sound present, no gallops and no murmurs GI: Inspection: richelle
[2020-09-17 11:46] LABS: Glucose Point of Care 260 (65-105)
[2020-09-17] MEDS: INSULIN ASPART (*BKC) 100 UNITS/ML SUB-Q (11:54)
[2020-09-19 04:31] LABS: Eosinophils, Sputum 0 %
[2020-09-20 13:08] LABS: ANA Cascade Screen Negative (Negative)
== END 2020-09-17 13:00 | disposition home or self-care (01) | DRG 197 ==
LOC: ANHED 12:33 → ANHIMU 16:09 → ANH2MED 09-16 04:46 → ANHIMU 09-19 10:47
PROVIDERS: Internal Medicine; Internal Medicine Critical Care Medicine; Physician Assistant; Admitting Provider Family Medicine; Emergency Provider Emergency Medicine; PCP Physician Assistant; Visit Provider Nurse Practitioner
DX: J84.9 Interstitial pulmonary disease, unspecified (principal); N18.4 Chronic kidney disease, stage 4 (severe); J96.11 Chronic respiratory failure with hypoxia; J81.1 Chronic pulmonary edema; N12 Tubulo-interstitial nephritis, not specified as acute or chronic; M32.9 Systemic lupus erythematosus, unspecified; D72.829 Elevated white blood cell count, unspecified; T38.0X5A Adverse effect of glucocorticoids and synthetic analogues, initial encounter; I12.9 Hypertensive chronic kidney disease with stage 1 through stage 4 chronic kidney disease, or unspecified chronic kidney disease; J44.9 Chronic obstructive pulmonary disease, unspecified; E11.22 Type 2 diabetes mellitus with diabetic chronic kidney disease; G47.33 Obstructive sleep apnea (adult) (pediatric); I25.10 Atherosclerotic heart disease of native coronary artery without angina pectoris; E03.9 Hypothyroidism, unspecified; E78.5 Hyperlipidemia, unspecified; H40.9 Unspecified glaucoma; I48.0 Paroxysmal atrial fibrillation; R13.10 Dysphagia, unspecified; D63.1 Anemia in chronic kidney disease; M19.90 Unspecified osteoarthritis, unspecified site; Z95.5 Presence of coronary angioplasty implant and graft; Z79.01 Long term (current) use of anticoagulants; Z99.81 Dependence on supplemental oxygen; Z95.0 Presence of cardiac pacemaker; Z79.52 Long term (current) use of systemic steroids; Z90.710 Acquired absence of both cervix and uterus
CPT/HCPCS: 36415; 36600; 71046; 71250; 80048; 80053; 81001; 82805; 83036; 83735; 83880; 84439; 84443; 84480; 84484; 85025; 85027; 85652; 86038; 86140; 86331; 86606; 86609; 87015; 87070; 87086; 87088; 87116; 87205; 87206; 88184; 88185; 89190; 93005; 93306; 96374; 97161; 97165; 99213; 99285; A9270; G0463; J1815; J1940; J7030; J7512; J9312

== ENCOUNTER 2020-09-24 02:08 | Outpatient (CLI) | payer MEDICARE, OTHER, SELFPAY ==
[2020-09-24 20:39] LABS: SARS-CoV-2 RNA PCR Negative
== END 2020-09-24 02:09 | disposition home or self-care (01) ==
LOC: ANHCOVIDDT 02:08
PROVIDERS: PCP Physician Assistant; Visit Provider Internal Medicine Critical Care Medicine
DX: Z01.812 Encounter for preprocedural laboratory examination (principal); Z20.828 Contact with and (suspected) exposure to other viral communicable diseases
CPT/HCPCS: 87635; C9803; U0003

== ENCOUNTER 2020-09-27 00:43 | Day surgery (SDC) | payer MEDICARE, OTHER, SELFPAY ==
[2020-09-26 15:11] VITALS: BMI 38.5
[2020-09-27] VITALS (7 sets, daily range): BP systolic 131–176; BP diastolic 54–96; PULSE 80–81; RESP 22–28; TEMP 35.9–36.4; O2SAT 90–100; BMI 35.0
--- NOTE | ~2020-09-27 | XR_ITS ---
EXAMINATION: XR chest 1V portable DATE: 09/27/2020 13:19 INDICATION: Interstitial lung disease status post bronchoscopy. TECHNIQUE: A single frontal view of the chest was obtained. COMPARISON: Chest 2 views 09/14/2020, chest CT 09/15/2020, 09/26/2019, PET/CT 09/09/18 FINDINGS: There are hazy airspace opacities in all lung zones bilaterally with sparing of the lung ap ices. No pleural effusion or pneumothorax. Cardiomegaly is noted. There are changes of mitral replace ment. There is a left chest pacer/defibrillator with leads in right atrium, right ventricle, and alissa nary sinus. Epicardial wires are noted. IMPRESSION: 1. Worsened diffuse lung disease, consistent with pulmonary edema or less likely pneumonia. 2. Cardiomegaly. Reviewed, dictated and finalized at location B. 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 Worsened diffuse lung disease, consistent with pulmonary edema or less likel y pneumonia. 2. Cardiomegaly.
--- NOTE | 2020-09-27 08:12 | WPDANESEPPF ---
Anes - Initial Pre Proc Eval Procedure: Operation Date: 09/27/20 12:00 Proposed Procedures p Flexible Bronchoscopy - Margarita Hartley MD Date/Time: 09/27/20 08:12 Surgeon: Margarita Hartley MD Pre Op Diagnosis: Interstitial Pulmonary Disease Patient Data Age: 75 Gender: F Height: 1.52 m Weight: 89.5 kg Allergies Allergy/AdvReac Type Severity Reaction Status Date / Time iodine Allergy Intermediate Hives Verified 09/27/20 10:59 Penicillins Allergy Intermediate Other Verified 09/27/20 10:59 Contrast Media Allergy Intermediate Hives Uncoded 09/27/20 10:59 Home Medications Medication Instructions Recorded Confirmed Type acetaminophen 500 mg tablet 500 mg PO Q6H PRN 11/22/19 09/21/20 History ascorbate calcium (vitamin C) 500 500 mg PO DAILY 11/22/19 09/21/20 History mg tablet calcitriol 0.25 mcg capsule 0.25 mcg PO 3XW 11/22/19 09/21/20 History cholecalciferol (vitamin D3) 25 1,000 unit PO BID 11/22/19 09/21/20 History mcg (1,000 unit) capsule diltiazem HCl 90 mg tablet 90 mg PO TID 11/22/19 09/21/20 History ferrous sulfate 325 mg (65 mg 325 mg PO BID 11/22/19 09/21/20 History iron) tablet furosemide 40 mg tablet 40 mg PO QAM 11/22/19 09/21/20 History latanoprost 0.005 % eye drops 1 drop EACH EYE QPM 11/22/19 09/21/20 History levothyroxine 50 mcg tablet 50 mcg PO DAILY 11/22/19 09/21/20 History nitroglycerin 0.4 mg sublingual 0.4 mg SUBLINGUAL Q5M PRN 11/22/19 09/21/20 History tablet pravastatin 40 mg tablet 40 mg PO HS 11/22/19 09/21/20 History rivaroxaban 15 mg tablet 15 mg PO HS 11/22/19 09/21/20 History insulin syringe-needle U-100 1 mL #200 each 01/20/20 09/14/20 Rx 31 gauge x 5/16 blood sugar diagnostic #400 each 08/30/20 09/14/20 Rx brimonidine 1 drp OPHTHALMIC (EYE) BID 09/14/20 09/21/20 History famotidine [Pepcid] 20 mg PO BID 09/14/20 09/21/20 History insulin NPH-regular hum s-syn See Rx Instructions .ROUTE .COMPLEX 09/14/20 09/21/20 History emollient combination no.92 1 ea TOPICAL BID PRN 30 Days #177 09/17/20 09/21/20 Rx [Lubriderm Daily Moisture] ml fluticasone propionate 1 spray INTRANASAL BID 30 Days #0 09/17/20 09/21/20 Rx ml magnesium oxide 400 mg PO DAILY #0 tablet 09/17/20 09/21/20 Rx prednisone See Rx Instructions .ROUTE 09/17/20 09/21/20 Rx .COMPLEX #100 tablet vit C,V-Oz-bkolp-lutein-zeaxan 1 tablet PO BID 09/21/20 09/21/20 History [PreserVision AREDS-2] Patient hx anesthesia problems: none Family hx anesthesia problems: none PMFSH Past Medical History Medical History Chronic anemia Chronic back pain Chronic kidney disease, stage 3 Baseline creatinine ranges from 1.3 to 1.60. Chronic respiratory failure with hypoxia Coronary artery disease With history of stent in 2011. Current use of fpc anticoagulation Essential hypertension Glaucoma History of pacemaker Hyperlipidemia Hypothyroidism Insulin dependent type 2 diabetes mellitus Hemoglobin A1c was 7.0% in June 2020. Interstitial lung disease Interstitial nephritis On chronic low-dose prednisone. Obstructive sleep apnea on CPAP Osteoarthritis Paroxysmal atrial fibrillation Systemic lupus erythematosus Surgical History Surgical History Biventricular automatic implantable cardioverter defibrillator in situ History of heart artery stent (~2011) History of hysterectomy History of mitral valve repair (~2014) History of tricuspid valve repair (~2014) Family History Family History Other Family history of cardiovascular disease Family history of chronic obstructive pulmonary disease Family history of kidney disease Family history of osteoporosis Social History Social History Social History: Surrogate decision maker: Halima Schwab, sister. Code status: Full c
[2020-09-27] MEDS: LACTATED RINGERS 1,000 ML 150 ML IV CONT (11:14)
[2020-09-27 11:18] LABS: Glucose Point of Care 115 (65-105)
[2020-09-27] MEDS: LIDOCAINE HCL 2% LOCAL INJ 20 ML VIAL 6 ML IRRIGATION (12:35)
[2020-09-27] MEDS: SODIUM CHLORIDE 0.9% IV 500 ML BAG 140 ML IRRIGATION (12:36)
[2020-09-27 12:49] LABS: Glucose Point of Care 127 (65-105)
--- NOTE | 2020-09-27 13:09 | SUR.PHASEII ---
1240-PT ARRIVED TO POST-OP AREA. PT SLEEPY FROM SEDATION, NO DISTRESS NOTED. PT WEARING SIMPLE MASK AT 8L O2. SATS 96-100%. PT HAS DRY COUGH, LUNGS ARE COURSE THROUGH OUT ALL OROZCO. 1250-DECREASED O2 TO 5L PER SIMPLE MASK. PT AWAKE, DENIES ANY PAIN, ASKING FOR ICE CHIPS. LUNG SOUNDS REMAIN COURSE. 1300-DR PLATT HERE SPEAKING WITH PT. DISCUSSED DISCHARGE INSTRUCTION WITH DR. SRINIVASAN MASK D/C'D. PT PLACED ON 5L NC. SATS 8-92%, CONTINUES TO HAVE A DRY COUGH. 1317-PCXR DONE
[2020-09-27 14:15] LABS: Appearance Bronchial Fluid Bloody; Color Bronchial Fluid Red; Eosinophils Bronchial Fluid 1 %; Lymphocytes Bronchial Fluid 22 %; Monocytes Bronchial Fluid 12 %; Neutrophils Bronchial Fluid 22 %; Source Bronchial Fluid Bronchial Washings
[2020-09-27 14:16] LABS: Macrophages Bronchial Fluid 31; Other Cells Bronchial Fluid 12 %
--- NOTE | 2020-09-28 14:21 | WPDHPUPDATE1 ---
History and Physical Update Update Date/Time: 09/28/20 14:21 History and Physical has been reviewed, including an updated exam of the patient. There are NO changes in the patient's condition. Risks, benefits, and alternatives have been discussed and questions answered. Patient agrees to proceed with procedure.
== END 2020-09-27 14:09 | disposition home or self-care (01) ==
PROVIDERS: PCP Physician Assistant; Visit Provider Internal Medicine Critical Care Medicine
PROC: 0BJ08ZZ Inspection of Tracheobronchial Tree, Via Natural or Artificial Opening Endoscopic (ICD-10-PCS; CPT 31622; principal; 2020-09-27 12:00)
DX: J84.9 Interstitial pulmonary disease, unspecified (principal); D72.829 Elevated white blood cell count, unspecified; G47.33 Obstructive sleep apnea (adult) (pediatric); J96.11 Chronic respiratory failure with hypoxia; I12.9 Hypertensive chronic kidney disease with stage 1 through stage 4 chronic kidney disease, or unspecified chronic kidney disease; N18.30 Chronic kidney disease, stage 3 unspecified; E11.22 Type 2 diabetes mellitus with diabetic chronic kidney disease; I48.0 Paroxysmal atrial fibrillation; M32.9 Systemic lupus erythematosus, unspecified; E78.5 Hyperlipidemia, unspecified; E03.9 Hypothyroidism, unspecified; D64.9 Anemia, unspecified; I25.10 Atherosclerotic heart disease of native coronary artery without angina pectoris; H40.9 Unspecified glaucoma; Z95.5 Presence of coronary angioplasty implant and graft; N12 Tubulo-interstitial nephritis, not specified as acute or chronic; Z79.4 Long term (current) use of insulin; Z79.01 Long term (current) use of anticoagulants; E66.9 Obesity, unspecified; Z68.35 Body mass index [BMI] 35.0-35.9, adult
CPT/HCPCS: 31629; 31624; 36415; 71045; 85999; 87015; 87070; 87075; 87076; 87102; 87116; 87185; 87205; 87206; 87254; 87279; 87281; 87581; 88104; 88108; 88305; 88342; J2001; J2704; J7040; J7120

== ENCOUNTER 2021-01-28 10:52 | Outpatient (CLI) | payer MEDICARE, OTHER, SELFPAY ==
--- NOTE | ~2021-01-28 | CT_ITS ---
EXAMINATION: CT chest high resolution wo ms EXAM DATE: 01/28/2021 11:09 INDICATION: J84.9 - Interstitial pulmonary disease, unspecified. TECHNIQUE: Spiral CT of the chest without contrast. Axial, coronal and sagittal images were reviewe d. Coronal maximum intensity pixel images of chest reviewed. The dose-length product (DLP) for this examination was 362.94 mGy-cm. The exposure was tailored according to patient size (auto mA exposur e control), and iterative reconstruction (ASIR) was used as additional dose reduction technique. Comp arison is made to prior examination from 09/26/2019, 09/15/2020. FINDINGS: Again there are several upper lobe noncalcified pulmonary nodules unchanged. Again there a re scattered regions of groundglass airspace disease with some basilar intralobular septal thickening , could be redevelopment of acute edema. Given similar appearance compared to August, but progressio n compared to 2018, could also be processes such as hypersensitivity pneumonitis, nonspecific interst itial pneumonitis (NSIP), cryptogenic organized pneumonia, desquamative interstitial pneumonitis(DIP) . There are no pleural or pericardial effusions. Tracheobronchial tree is patent. There is no media stinal, hilar or axillary lymphadenopathy. There is no pneumothorax. Cardiac pacemaker/AICD alisa roderick. Upper abdomen is unremarkable. There is thoracic spondylosis without osteoblastic or osteolyt ic lesions identified. IMPRESSION: 1. Persistent basilar intralobular septal thickening and groundglass opacities, could be acute or ch ronic process such as NSIP. 2. Stable small upper lobe nodules. Reviewed, dictated and finalized at location A. IMPRESSION: 1. Persistent basilar intralobular septal thickening and groundglass opacities , could be acute or chronic process such as NSIP. 2. Stable small upper lobe nodules.
== END 2021-01-28 10:53 | disposition home or self-care (01) ==
LOC: ANHIMG 10:54
PROVIDERS: PCP Physician Assistant; Visit Provider Internal Medicine
DX: J84.9 Interstitial pulmonary disease, unspecified (principal)
CPT/HCPCS: 71250

== ENCOUNTER 2021-03-26 10:06 | Outpatient (CLI) | payer MEDICARE, OTHER, SELFPAY ==
--- NOTE | ~2021-03-26 | XR_ITS ---
EXAMINATION: XR cervical spine 4-5V EXAM DATE: 03/26/2021 10:36 INDICATION: Polyarticular osteoarthritis. Pt has had a stiff neck for 3 months. TECHNIQUE: Cervical spine frontal, lateral, lateral swimmers, and open-mouth odontoid projections. There is no prior study for comparison. FINDINGS: Vertebral body and disc heights are well-maintained. The vertebral bodies are aligned in th e AP dimension. There is overall moderate cervical facet arthropathy, probably less amount of uncover tebral joint arthropathy. There is complete loss of the predens space, odontoid appears to be flushed with the anterior arch of C1. This is likely advanced osteoarthritis, but can't exclude fusion, anky losis. Paraspinal soft tissue is unremarkable. Sternotomy wires and pacemaker/AICD device. There are no acute fractures identified. Lung apices unremarkable. IMPRESSION: 1. Probable advanced odontoid osteoarthritis, can't exclude ankylosis. 2. Overall moderate cervical facet arthropathy. Reviewed, dictated and finalized at location A.
== END 2021-03-26 10:07 | disposition home or self-care (01) ==
LOC: ANHIMG 10:17
PROVIDERS: PCP Physician Assistant; Visit Provider Internal Medicine
DX: M50.30 Other cervical disc degeneration, unspecified cervical region (principal)
CPT/HCPCS: 72050

== ENCOUNTER 2021-05-01 09:32 | Outpatient (CLI) | payer MEDICARE, OTHER, SELFPAY ==
--- NOTE | ~2021-05-01 | DEXA_ITS ---
Bone Density Report Name: Geri Jaeger Age: 76 Sex: Female Ethnicity: White Date of : 1945 Indication: postmenopausal; height loss; cancer; hysterectomy; Referring Provider: Kimberley Zuleat Study: Bone densitometry was performed. Exam Date: May 01, 2021 Accession number: [id number] Bone Density: Region BMD T-score Z-score Classification AP Spine (L1, L2) 1.067 0.8 3.0 Normal Femoral Neck (Right) 0.633 -1.9 0.1 Osteopenia Total Hip (Right) 0.810 -1.1 0.7 Osteopenia World Health Organization criteria for BMD impression classify patients as: Normal (T-score at or above -1.0), Osteopenia (T-score between -1.0 and -2.5), or Osteoporosis (T-score at or below -2.5). 10-year Fracture Risk(1): Major Osteoporotic Fracture 12% Hip Fracture 2.8% Reported Risk Factors: [place] (), Neck BMD=0.633, BMI=31.5 (1) FRAX(R) Version 3.08. Fracture probability calculated for an untreated patient. Fracture probability may be lower if the patient has received treatment. Clinical Information Provided by Patient: Has used the following medications: Vitamin D, Calcium Has the following medical conditions: Cancer, Hysterectomy Patient maximum height was 63 Menopause Age: 52 No regular weight bearing exercise Does not regularly consume dairy products Onset of menses at age 13 Number of children 0 Impression: The patient has low bone mass, based on the Right Femoral Neck T-score. The patient has an estimated ten-year risk of hip fracture of 2.8% and an estimated ten-year risk of major fracture of 12%, based on the WHO FRAX algorithm. Discussion: BONE DENSITY IS LOW AT ONE OR MORE SKELETAL SITES. This patient's lowest T-score is low at one or more skeletal sites. It meets the World Health Organization's (WHO) criteria for ?low bone mass? (T-score between -1.0 and -2.5). The patient's 10-year risk of fracture as calculated by FRAX is less than the threshold where pharmacological therapy is recommended by the National Osteoporosis Foundation (NOF). However, all treatment decisions require clinical judgment and consideration of individual patient factors, including patient preferences, comorbidities, previous drug use, risk factors not captured in the FRAX model (e.g., frailty, falls, vitamin D deficiency, increased bone turnover, interval significant decline in bone density) and possible under or overestimation of fracture risk by FRAX. The patient should follow a healthful lifestyle (good nutrition with adequate calcium and vitamin D, and appropriate weight-bearing exercise). Follow-Up: Consider repeating this study in 2 to 3 years to reassess this patient's status, or sooner if there is some new clinical indication. Reported by: [facility] on 05/01/2021 9:56:00 AM. Reviewed, dictated and fin
== END 2021-05-01 09:33 | disposition home or self-care (01) ==
LOC: ANHIMG 09:34
PROVIDERS: PCP Physician Assistant; Visit Provider Internal Medicine Endocrinology, Diabetes & Metabolism
DX: Z78.0 Asymptomatic menopausal state (principal); M85.89 Other specified disorders of bone density and structure, multiple sites
CPT/HCPCS: 77080

== ENCOUNTER 2021-09-02 14:00 | Outpatient (CLI) | payer MEDICARE, OTHER, SELFPAY ==
[2021-09-02] VITALS (7 sets, daily range): PULSE 82–101; O2SAT 84–93
--- NOTE | 2021-09-02 15:16 | HOMEO2EVAL ---
Evaluation was performed at [facility] Home Oxygen Evaluation RC: Home Oxygen (O2) Evaluation Start: 09/02/21 15:13 Freq: Status: Active Protocol: RPE Activity Type Activity Date Activity User E-Sign Co-Sign Detail Recorded Client Recorded Date Recorded By Document 09/02/21 14:30 CHAPO [email or web address] 09/02/21 15:16 CHAPO Document 09/02/21 14:31 [email or web address] [email or web address] 09/02/21 15:16 CHAPO Document 09/02/21 14:32 [email or web address] [email or web address] 09/02/21 15:16 CHAPO Document 09/02/21 14:33 [email or web address] [email or web address] 09/02/21 15:16 CHAPO Document 09/02/21 14:34 CHAPO [email or web address] 09/02/21 15:16 CHAPO Document 09/02/21 14:36 CHAPO [email or web address] 09/02/21 15:16 CHAPO Document 09/02/21 14:45 CHAPO [email or web address] 09/02/21 15:16 CHAPO 09/02/21 09/02/21 09/02/21 14:30 14:31 14:32 Home O2 Evaluation Test Phase Resting Resting Resting Oxygen Delivery Room Air Nasal Cannula Nasal Cannula Oxygen Flow Rate (L/min) 2 3 Pulse Oximetry (90-100 %) 84 L 85 L 86 L Pulse Rate (60-100 beats/min) 82 Ambulation Distance (feet) Home Oxygen Evaluation Comments Treatment Charges O2 Evaluation - Outpatient 09/02/21 09/02/21 09/02/21 14:33 14:34 14:36 Home O2 Evaluation Test Phase Resting Resting Exercise Oxygen Delivery Nasal Cannula Nasal Cannula Nasal Cannula Oxygen Flow Rate (L/min) 4 5 5 Pulse Oximetry (90-100 %) 87 L 90 89 L Pulse Rate (60-100 beats/min) 89 101 H Ambulation Distance (feet) 200 Home Oxygen Evaluation Comments PT REQUIRES 5 AT REST AND WITH EXERTION Treatment Charges 09/02/21 14:45 Home O2 Evaluation Test Phase Resting Oxygen Delivery Nasal Cannula Oxygen Flow Rate (L/min) 5 Pulse Oximetry (90-100 %) 93 Pulse Rate (60-100 beats/min) 86 Ambulation Distance (feet) Home Oxygen Evaluation Comments Treatment Charges
--- NOTE | 2021-09-03 11:29 | WPDPFTINT ---
PFT Procedure Performed PFT Procedure Performed Spirometry with Pre/Post Bronchodilator Plethysmography (Lung Vol) Diffusing Cap (DLCO) Flow Vol Loop PFT Interpretation This is a pulmonary function test with pre and post-bronchodilator spirometry, plethysmography and diffusing capacity. The test was performed and results interpreted in accordance with the 2019 and 2005 ATS/ERS Task Force guidelines respectively using the Global Lung Function Initiative-2012 reference equations. Patient demonstrated good effort and cooperation. Reproducibility criteria were met. The quality of the pre bronchodilator spirometry maneuver was Grade A and post bronchodilator spirometry maneuver was Grade A. Findings: Spirometry: The contour of the inspiratory and expiratory flow tracing are normal. The pre bronchodilator FVC is 1.38 L, 55% predicted. The pre bronchodilator FEV1 is 1.13 L, 58% predicted. The FEV1: FVC ratio was 82%. The post bronchodilator FVC is 1.37 L, representing 1% decrease. The post bronchodilator FEV1 is 1.19 L, representing a 5% increase. Plethysmography: The total lung capacity is 2.82 L, 60% predicted. The functional residual capacity is 1.80 L, 67% predicted. The residual volume is 1.41 L, 65% predicted. Diffusing capacity: The absolute diffusion capacity is 6.6, 34% predicted. The diffusing capacity corrected for alveolar volume is 3.00, 70% predicted. In comparison to previous pulmonary function test on 08/06/2020 the post bronchodilator FVC is unchanged from 1.45 L to 1.37 L. The post bronchodilator FEV1 is unchanged from 1.21 L to 1.19 L. The total lung capacity is unchanged from 3.00 L to 2.82 L. The functional residual capacity is unchanged from 1.70 L to 1.80 L. The residual volume is unchanged from 1.47 L to 1.41 L. The absolute diffusion capacity is unchanged from 7.1 to 6.6. The diffusing capacity corrected for alveolar volume is unchanged from 2.96 to 3.00 Impression: There is a moderately restrictive ventilatory abnormality. The spirometry is normal without evidence of an obstructive abnormality. There is no significant improvement after inhaling a single dose of albuterol. The absolute diffusing capacity is severely decreased and normalizes when corrected for alveolar volume. There are no prior studies for comparison
== END 2021-09-02 14:01 | disposition home or self-care (01) ==
PROVIDERS: PCP Physician Assistant; Visit Provider Internal Medicine Pulmonary Disease
DX: J96.11 Chronic respiratory failure with hypoxia (principal); R94.2 Abnormal results of pulmonary function studies
CPT/HCPCS: 94060; 94618; 94726; 94729

== ENCOUNTER 2021-09-17 07:51 | Outpatient (CLI) | payer MEDICARE, OTHER, SELFPAY ==
[2021-09-17 10:18] LABS: Free T4 Free Thyroxine 1.38 ng/mL (0.78-2.19)
== END 2021-09-17 07:52 | disposition home or self-care (01) ==
PROVIDERS: PCP Physician Assistant; Visit Provider Internal Medicine Endocrinology, Diabetes & Metabolism
DX: E03.9 Hypothyroidism, unspecified (principal)
CPT/HCPCS: 36415; 84439; 84443

== ENCOUNTER 2022-01-13 12:15 | Outpatient (CLI) | payer MEDICARE, OTHER, SELFPAY ==
--- NOTE | ~2022-01-13 | CT_ITS ---
EXAMINATION: CT diagnostic chest wo con EXAM DATE: 01/13/2022 12:52 INDICATION: Lung nodule follow-up. TECHNIQUE: Spiral CT of the chest without contrast. Axial, coronal and sagittal images of the chest were reviewed. Coronal maximum intensity pixel images of chest reviewed. The dose-length product ( DLP) for this examination was 146.14 mGy-cm. The exposure was tailored according to patient size (au to mA exposure control), and iterative reconstruction (ASIR) was used as additional dose reduction te chnique. Comparison is made to prior examination from 01/28/2021. FINDINGS: There is a 6 mm right upper lobe nodule on image 20. There is a new 6 mm nodule average di mension pleural-based nodule right upper lobe image 52. A previously seen 3 mm right upper lobe pleur al-based nodule is stable or has decreased in size. Again there are scattered small regions of groundglass airspace disease. Similar appearance on prior study, could be chronic nonspecific interstitial pneumonitis pattern interstitial lung disease. Super imposed acute edema or pneumonia not totally excludable. There is cardiomegaly. There are no pleural or pericardial effusions. Tracheobronchial tree is patent. There is no mediastinal, hilar or axil kanwal lymphadenopathy. There is no pneumothorax. There are sternotomy wires, and cardiac/coronary surgical changes. Correlate with prior history. Upper abdomen is unremarkable. There is thoracic s pondylosis without osteoblastic or osteolytic lesions identified. IMPRESSION: 1. Several pulmonary nodules, one of which is new; consider one-year follow-up chest CT without cont rast. 2. Persistent small regions of nonspecific groundglass opacity, probably chronic. 3. Cardiomegaly. Reviewed, dictated and finalized at location G. L BOX TOE INSERTER IMPRESSION: 1. Several pulmonary nodules, one of which is new; consider one-year follow-up chest CT without contrast. 2. Persistent small regions of nonspecific groundglass opacity, probably chron ic. 3. Cardiomegaly.
== END 2022-01-13 12:16 | disposition home or self-care (01) ==
LOC: ANHIMG 12:21
PROVIDERS: PCP Physician Assistant; Visit Provider Internal Medicine Hematology & Oncology
DX: R91.1 Solitary pulmonary nodule (principal); I51.7 Cardiomegaly; R91.8 Other nonspecific abnormal finding of lung field
CPT/HCPCS: 71250

== ENCOUNTER 2022-02-04 07:17 | Outpatient (RCR) | payer MEDICARE, OTHER, SELFPAY ==
[2022-02-04] VITALS (10 sets, daily range): BP systolic 113–145; BP diastolic 45–77; PULSE 104–110; RESP 18–20; TEMP 36.6–37.1; O2SAT 91–97
[2022-02-04] MEDS: diphenhydrAMINE HCl CAP 25 MG CAPSULE PO (08:28)
[2022-02-04] MEDS: ACETAMINOPHEN 325 MG TABLET 650 MG PO (08:28)
[2022-02-04] MEDS: SODIUM CHLORIDE 0.9% IV 250 ML 30 ML IV CONT (09:00)
[2022-02-04] MEDS: FUROSEMIDE INJ 40 MG/4 ML VIAL 20 MG IV PUSH (12:36)
== END 2022-05-05 23:59 | disposition home or self-care (01) ==
LOC: ANHCPCTRAN 07:17
PROVIDERS: PCP Physician Assistant; Visit Provider Internal Medicine Hematology & Oncology
DX: D64.9 Anemia, unspecified (principal)
CPT/HCPCS: 36415; 36430; 86850; 86900; 86901; 86920; 96374; A9270; J1940; J7050; P9016

== ENCOUNTER 2022-02-17 11:36 | Outpatient (CLI) | payer MEDICARE, OTHER, SELFPAY ==
[2022-02-17 16:46] LABS: Anion Gap 9 mmol/L (8-16); Blood Urea Nitrogen 23 mg/dL (7-17); Carbon Dioxide 32 mmol/L (22-30); Chloride 100 mmol/L (98-107); Estimated Glomerular Filt Rate 34; Glucose 92 mg/dL (65-110); HDL Direct 41 mg/dL; Potassium 4.4 mmol/L (3.4-5.0); Sodium 141 mmol/L (137-145)
[2022-02-17 16:57] LABS: LDL Cholesterol Direct 45 mg/dL
[2022-02-17 16:59] LABS: Creatinine Urine 8.7 mg/dL
[2022-02-17 17:45] LABS: Microalbumin Urine Random 56.9 mg/L (0-16.7)
[2022-02-17 17:47] LABS: Free T4 Free Thyroxine 1.34 ng/mL (0.78-2.19)
== END 2022-02-17 11:37 | disposition home or self-care (01) ==
PROVIDERS: PCP Physician Assistant; Visit Provider Internal Medicine Endocrinology, Diabetes & Metabolism
DX: E11.65 Type 2 diabetes mellitus with hyperglycemia (principal); Z79.4 Long term (current) use of insulin; E03.9 Hypothyroidism, unspecified; M81.0 Age-related osteoporosis without current pathological fracture
CPT/HCPCS: 36415; 80048; 82043; 83718; 83721; 84439; 84443

== ENCOUNTER 2022-04-28 10:11 | Outpatient (CLI) | payer MEDICARE, OTHER, SELFPAY ==
[2022-04-28 11:34] LABS: IFOB Positive Control Positive; Immunochemical Fecal Occult Bl Positive (N)
== END 2022-04-28 10:12 | disposition home or self-care (01) ==
LOC: ANHLAB 10:14
PROVIDERS: PCP Physician Assistant; Visit Provider Internal Medicine Gastroenterology
DX: K92.1 Melena (principal)
CPT/HCPCS: 82274

== ENCOUNTER 2022-05-21 01:00 | Day surgery (SDC) | payer MEDICARE, OTHER, SELFPAY ==
[2022-05-09 13:53] VITALS: BMI 28.2
--- NOTE | 2022-05-20 10:21 | PM.HPGS ---
History of Present Illness History of Present Illness Consent: Risks, benefits, and alternatives have been discussed and questions answered. Patient agrees to proceed with procedure. Chief complaint: occult GI bleed Narrative: Geri Jaeger is a 77 year old female who about 6 months ago she had a difficult stool and passed some red blood with her stools.? ? She then had some more blood in her stools, again when she was straining.?? She had colonoscopy 4 years ago with removal of 2 polyps that were adenomas.? At that time she was being investigated for anemia.? She does have chronic anemia in fact recently had a blood transfusion because of blood counts are or low. ? Her hemoglobin had dropped to 6.5.? Is now around 8.? She has had iron studies which were normal.? She added that she also gets frequent nose bleeds and she blames this on her nasal O2? prongs.? She is on Xarelto for atrial fibrillation.? Review of Systems Review of Systems: All systems reviewed & are unremarkable except as noted in HPI and below PMFSH Past Medical History Medical History Bilateral hand pain Chronic anemia Chronic back pain Chronic kidney disease, stage 3 Baseline creatinine ranges from 1.3 to 1.60. Chronic respiratory failure with hypoxia Coronary artery disease With history of stent in 2011. Current use of assisted anticoagulation Essential hypertension Glaucoma History of pacemaker Hyperlipidemia Hypothyroidism Insulin dependent type 2 diabetes mellitus Hemoglobin A1c was 7.0% in June 2020. Interstitial lung disease Interstitial nephritis On chronic low-dose prednisone. Obstructive sleep apnea on CPAP Osteoarthritis Paroxysmal atrial fibrillation Surgical History Surgical History Biventricular automatic implantable cardioverter defibrillator in situ History of heart artery stent (~2011) History of hysterectomy History of mitral valve repair (~2014) History of tricuspid valve repair (~2014) Family History Family History Other Family history of cardiovascular disease Family history of chronic obstructive pulmonary disease Family history of kidney disease Family history of osteoporosis Social History Social History Social History: Surrogate decision maker: Halima Glynnkera, sister. Code status: Full code. She would not want to be on long-term life support. Smoking status: Never smoker Second hand tobacco smoke exposure: Yes Alcohol intake: never Substance use: never Substance use type: does not use Living arrangements: with family Additional living arrangements comments: [phone] Additional occupation/education comments: Retired from working for [employer]. Gender identity (if verbalized by the patient): Female Spiritual care concerns: No Meds Home Medications and Allergies Home Medications Medication Instructions Recorded Confirmed Type acetaminophen 500 mg tablet 1,000 mg PO Q6H PRN Pain 11/22/19 05/21/22 History (Tylenol Extra Strength) calcitriol 0.25 mcg capsule 0.25 mcg PO QMWF 11/22/19 05/21/22 History cholecalciferol (vitamin D3) 25 1,000 unit PO BID 11/22/19 05/21/22 History mcg (1,000 unit) capsule diltiazem HCl 90 mg tablet 90 mg PO TID 11/22/19 05/21/22 History furosemide 40 mg tablet 40 mg PO QAM 11/22/19 05/21/22 History nitroglycerin 0.4 mg sublingual 0.4 mg sublingual Q5M PRN Chest 11/22/19 05/21/22 History tablet (Nitrostat) Pain pravastatin 40 mg tablet 40 mg PO HS 11/22/19 05/21/22 History rivaroxaban 15 mg tablet (Xarelto) 15 mg PO HS 11/22/19 05/21/22 History insulin syringe-needle U-100 1 mL #200 ea 01/20/20 05/21/22 Rx 31 gauge x 5/16 ([employer]uch Insulin Syringe) brimonidine 0.2 % eye drops 1 drp ophthalmic (eye) BID 09/14/20 05/21/22 Hist
[2022-05-21 07:58] VITALS: BP 139/49; PULSE 79; RESP 20; TEMP 36.3; O2SAT 97
[2022-05-21] MEDS: LACTATED RINGERS 1,000 ML 150 ML IV CONT (08:03)
[2022-05-21 08:05] LABS: Glucose Point of Care 183 mg/dl (65-105)
--- NOTE | 2022-05-21 08:27 | WPDANESEPPF ---
Anes - Initial Pre Proc Eval Procedure: Operation Date: 05/21/22 09:00 Proposed Procedures p Esophagogastroduodenoscopy & Colonoscopy - Tony Barrera MD Date/Time: 05/21/22 08:27 Surgeon: Tony Barrera MD Pre Op Diagnosis: occult GI bleed Patient Data Age: 77 Gender: F Height: 1.57 m Weight: 68.4 kg Last Vital Signs Temp 36.3 C L 05/21/22 07:58 Pulse 79 05/21/22 07:58 Resp 20 05/21/22 07:58 BP 139/49 L 05/21/22 07:58 Pulse Ox 97 05/21/22 07:58 O2 Del Method Nasal Cannula 05/21/22 07:58 O2 Flow Rate 5 05/21/22 07:58 Allergies Allergy/AdvReac Type Severity Reaction Status Date / Time iodine Allergy Intermediate Hives Verified 05/21/22 07:54 Penicillins Allergy Intermediate Other Verified 05/21/22 07:54 Contrast Media Allergy Intermediate Hives Uncoded 05/21/22 07:54 Home Medications Medication Instructions Recorded Confirmed Type acetaminophen 500 mg tablet 1,000 mg PO Q6H PRN Pain 11/22/19 05/21/22 History (Tylenol Extra Strength) calcitriol 0.25 mcg capsule 0.25 mcg PO QMWF 11/22/19 05/21/22 History cholecalciferol (vitamin D3) 25 1,000 unit PO BID 11/22/19 05/21/22 History mcg (1,000 unit) capsule diltiazem HCl 90 mg tablet 90 mg PO TID 11/22/19 05/21/22 History furosemide 40 mg tablet 40 mg PO QAM 11/22/19 05/21/22 History nitroglycerin 0.4 mg sublingual 0.4 mg sublingual Q5M PRN Chest 11/22/19 05/21/22 History tablet (Nitrostat) Pain pravastatin 40 mg tablet 40 mg PO HS 11/22/19 05/21/22 History rivaroxaban 15 mg tablet (Xarelto) 15 mg PO HS 11/22/19 05/21/22 History insulin syringe-needle U-100 1 mL #200 ea 01/20/20 05/21/22 Rx 31 gauge x 5/16 (CareTouch Insulin Syringe) brimonidine 0.2 % eye drops 1 drp ophthalmic (eye) BID 09/14/20 05/21/22 History magnesium oxide 400 mg PO DAILY #0 tabs 09/17/20 05/21/22 Rx vit C 250 mg-vit E 90 mg-zinc 40 1 tablet PO BID 09/21/20 05/21/22 History mg-copper 1 [id number] capsule (PreserVision AREDS-2) dorzolamide 2 % eye drops 1 drp EACH EYE BID 01/08/21 05/21/22 History ferrous sulfate 325 mg (65 mg 325 mg PO BID 01/08/21 05/21/22 History iron) tablet (Feosol) latanoprost 0.005 % eye drops 1 drp EACH EYE DAILY 01/08/21 05/21/22 History alendronate 70 mg tablet 70 mg PO WEEKLY 07/01/21 05/21/22 History blood sugar diagnostic (True #400 ea 09/25/21 05/21/22 Rx Metrix Glucose Test Strip) levothyroxine 50 mcg tablet See Rx Instructions PO DAILY 90 11/20/21 05/21/22 Rx days #108 tabs blood sugar diagnostic (FreeStyle 02/17/22 05/21/22 History Test strips) insulin human U-100 NPH-regulr See Rx Instructions subcut 05/01/22 05/21/22 Rx 70-30 mix 100 unit/mL subcutaneous USEASDIRECTD 3 months #30 mL susp (Novolin 70/30 U-100 Insulin) ascorbic acid (vitamin C) 500 mg 500 mg PO DAILY 05/09/22 05/21/22 History capsule cyanocobalamin (vitamin B-12) 500 500 mcg PO DAILY 05/09/22 05/21/22 History mcg tablet (Vitamin B-12) epoetin saran-epbx 40,000 unit/mL 40,000 unit subcut MONTHLY 05/09/22 05/21/22 History injection solution rivaroxaban 15 mg tablet (Xarelto) 15 mg PO DAILY 05/21/22 05/21/22 History Laboratory Tests 05/21/22 08:02 POC Capillary Glucose 183 mg/dl H mg/dl (65-105) Patient hx anesthesia problems: none Family hx anesthesia problems: none Results Review: All pre-operative results and documents have been reviewed as part of the pre-operative evaluation. [facility] Past Medical History Medical History Bilateral hand pain Chronic anemia Chronic back pain Chronic kidney disease, stage 3 Baseline creatinine ranges from 1.3 to 1.60. Chronic respiratory failure with hypoxia Coronary artery disease With history of stent in 2011. Current use of chcf anticoagulation Essential hypertension Glaucoma History of pacemaker Hyperlipidemia Hypothyroidism Insulin dependent type 2 diabetes mellitus H
--- NOTE | 2022-05-21 09:10 | SUR.OPER ---
EGD end time 902. Colonoscopy began at 909
[2022-05-21 09:26] VITALS: BP 102/51; PULSE 88; RESP 20; O2SAT 96
[2022-05-21 09:36] VITALS: BP 109/73; PULSE 92; RESP 22; O2SAT 97
[2022-05-21 09:46] VITALS: BP 116/70; PULSE 90; RESP 20; O2SAT 99
== END 2022-05-21 10:05 | disposition home or self-care (01) ==
PROVIDERS: PCP Physician Assistant; Visit Provider Internal Medicine Gastroenterology
PROC: 0DJ08ZZ Inspection of Upper Intestinal Tract, Via Natural or Artificial Opening Endoscopic (ICD-10-PCS; CPT 43235; principal; 2022-05-21 09:00)
DX: Z12.11 Encounter for screening for malignant neoplasm of colon (principal); D50.9 Iron deficiency anemia, unspecified; K21.00 Gastro-esophageal reflux disease with esophagitis, without bleeding; K22.70 Barrett's esophagus without dysplasia; Z79.4 Long term (current) use of insulin; E03.9 Hypothyroidism, unspecified; Z79.01 Long term (current) use of anticoagulants; I12.9 Hypertensive chronic kidney disease with stage 1 through stage 4 chronic kidney disease, or unspecified chronic kidney disease; N18.30 Chronic kidney disease, stage 3 unspecified; J96.11 Chronic respiratory failure with hypoxia; E11.22 Type 2 diabetes mellitus with diabetic chronic kidney disease; J84.9 Interstitial pulmonary disease, unspecified; G47.33 Obstructive sleep apnea (adult) (pediatric); I48.0 Paroxysmal atrial fibrillation; N11.9 Chronic tubulo-interstitial nephritis, unspecified; Z95.810 Presence of automatic (implantable) cardiac defibrillator
CPT/HCPCS: 43239; G0121; 82948; 87081; 88305; 88313; J2704; J7120

== ENCOUNTER 2023-01-13 09:09 | Outpatient (CLI) | payer MEDICARE, OTHER, SELFPAY ==
--- NOTE | ~2023-01-13 | CT_ITS ---
EXAMINATION:CT chest high resolution wo co DATE: 01/13/2023 09:40 INDICATION: Interstitial lung disease. TECHNIQUE: Computed tomography (CT) of the chest was performed without intravenous contrast. Automate d exposure control and iterative reconstruction technique were employed. The dose-length product (DLP ) was 280.48 mGy-cm. COMPARISON: Chest CT 01/13/2022 FINDINGS: There is widespread septal thickening in the lungs associated with groundglass opacities wi th a lower lung predominance. There is a 7 mm nodule abutting the pleura at right lung apex without c hange. There is a new 8 mm nodule in right upper lobe abutting the major fissure. Calcified pulmonary nodules and calcified hilar and mediastinal lymph nodes are consistent with old granulomatous diseas e. There are small pleural effusions. Cardiomegaly is noted. There are changes of mitral and tricuspi d valve replacements. There are coronary artery calcifications. There is a left chest wall pacer with leads in right atrium, right ventricle, and coarse sinus. There is an additional lead in right atriu m. There are bridging endplate osteophytes at multiple levels in the spine, consistent with diffuse i diopathic skeletal hyperostosis (DISH). IMPRESSION: 1. Worsened diffuse lung disease, likely moderate pulmonary edema superimposed on chronic interstitia l lung disease. 2. Small pleural effusions. 3. New 8 mm pulmonary nodule suspicious for primary bronchogenic carcinoma. Noncontrast low-dose ches t CT is recommended in 3 months. 4. Cardiomegaly. Reviewed, dictated and finalized at location A. [facility] IMPRESSION: 1. Worsened diffuse lung disease, likely moderate pulmonary edema superimposed on chronic interstitial lung disease. 2. Small pleural effusions. 3. New 8 mm pulmonary nodule suspicious for primary bronchogenic carcinoma. Non contrast low-dose chest CT is recommended in 3 months. 4. Cardiomegaly.
== END 2023-01-13 09:10 | disposition home or self-care (01) ==
LOC: ANHIMG 09:12
PROVIDERS: PCP Internal Medicine; Visit Provider Internal Medicine Pulmonary Disease
DX: R06.00 Dyspnea, unspecified (principal); J84.9 Interstitial pulmonary disease, unspecified; J90 Pleural effusion, not elsewhere classified; R91.1 Solitary pulmonary nodule; I51.7 Cardiomegaly
CPT/HCPCS: 71250; 94060; 94726; 94729

== ENCOUNTER 2023-03-23 07:22 | Outpatient (RCR) | payer MEDICARE, OTHER, SELFPAY ==
[2023-03-23] VITALS (10 sets, daily range): BP systolic 121–138; BP diastolic 40–54; PULSE 78–82; RESP 16–18; TEMP 36.5–36.9; O2SAT 93–100
[2023-03-23] MEDS: diphenhydrAMINE HCl CAP 25 MG CAPSULE PO (07:46)
[2023-03-23] MEDS: ACETAMINOPHEN 325 MG TABLET 650 MG PO (07:46)
[2023-03-23 07:48] LABS: Hematocrit 25.2 % (37.0-47.0)
[2023-03-23 07:54] LABS: Hemoglobin 6.7 g/dL (12.0-15.0)
[2023-03-23] MEDS: SODIUM CHLORIDE 0.9% IV 250 ML 30 ML IV CONT (08:02)
--- NOTE | 2023-03-23 09:15 | PC.NURSE ---
Assumed care of this pt. Unit # 1 PRBC infusing @ 125 cc/hr via pump. Pt without distress or c/o
--- NOTE | 2023-03-23 10:22 | PC.NURSE ---
No reaction to PRBC unit #1. Pt resting comfortably without c/o or distress. Lasix IVP per MD order. Meal ordered.
[2023-03-23] MEDS: FUROSEMIDE INJ 40 MG/4 ML VIAL 20 MG IV PUSH (10:39)
--- NOTE | 2023-03-23 10:59 | PC.NURSE ---
Unit #2 rate increased to 125 cc/hr via pump after 15 mins @ 75 cc/hr. No complaints or distress.
--- NOTE | 2023-03-23 14:24 | PC.NURSE ---
Addendum entered by Anum Horta RN 03/23/23 14:28: D/C time to hospital exit @ 1350 Original Note: No reaction to PRBC Unit #2. Tolerated transfusion 2 units without complications or distress. IV d/c intact with dry drsg applied. D/C to hospital entrance #! via wheelchair. Family present.
== END 2023-06-21 23:59 | disposition home or self-care (01) ==
LOC: ANHCPCTRAN 07:22
PROVIDERS: PCP Internal Medicine; Visit Provider Internal Medicine Hematology & Oncology
DX: N18.9 Chronic kidney disease, unspecified (principal); D63.1 Anemia in chronic kidney disease
CPT/HCPCS: 36415; 36430; 85014; 85018; 86850; 86900; 86901; 86923; A9270; J1940; J7050; P9016

== ENCOUNTER 2023-04-30 13:21 | Outpatient (CLI) | payer MEDICARE, OTHER, SELFPAY ==
--- NOTE | ~2023-04-30 | CT_ITS ---
EXAMINATION: CT diagnostic chest wo con DATE: 04/30/2023 14:01 INDICATION: Right upper lobe nodule TECHNIQUE: Computed tomography (CT) of the chest was performed without intravenous contrast. The dose -length product (DLP) was 185.63 mGy-cm. Automated exposure control and iterative reconstruction tech Yun[place] were employed. COMPARISON: 01/13/2023 FINDINGS: The previously described right upper lobe nodule abutting the major fissure is decreased in size, most consistent with resolving infection/inflammation. There are small pleural effusions. Card iomegaly is noted. There is a stable nodule of the right lung apex. Again noted is widespread septal thickening of the lungs with associated groundglass opacities in the mid and lower lung zone predomin ance. There has been interval worsening compared to the most recent prior examination. Calcified pulm onary nodules and calcified hilar and mediastinal lymph nodes are consistent with old granulomatous d isease. There are bridging osteophytes at multiple levels in the spine, consistent with diffuse idiop athic skeletal hyperostosis (DISH). There is a small volume of abdominal ascites. IMPRESSION: 1. 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 2. Decrease in size of right upper lobe pulmonary nodule, consistent with resolving infection/inflamm ation. 3. Cardiomegaly 4. Small pleural effusions. 5. New ascites. Reviewed, dictated and finalized at location A. IMPRESSION: 1. Diffuse lung disease with interval worsening, consistent with pulmonary donovan a superimposed on chronic interstitial lung disease. 2. Decrease in size of right upper lobe pulmonary nodule, consistent with resol ving infection/inflammation. 3. Cardiomegaly 4. Small pleural effusions. 5. New ascites.
== END 2023-04-30 13:22 | disposition home or self-care (01) ==
PROVIDERS: PCP Internal Medicine; Visit Provider Internal Medicine Pulmonary Disease
DX: R91.1 Solitary pulmonary nodule (principal); I51.7 Cardiomegaly; J90 Pleural effusion, not elsewhere classified; J98.4 Other disorders of lung
CPT/HCPCS: 71250

== ENCOUNTER 2023-05-03 08:59 | Inpatient (IN) | payer MEDICARE, OTHER, SELFPAY ==
[2023-05-03] VITALS (20 sets, daily range): BP systolic 94–125; BP diastolic 37–67; PULSE 78–84; RESP 14–26; TEMP 36.2–36.9; O2SAT 91–100; BMI 31.5
--- NOTE | ~2023-05-03 | XR_ITS ---
XR chest 1V portable 05/05/2023 14:31 Indication: Shortness of breath Procedure: AP portable chest Comparison: Comparison to multiple prior studies sequentially, with oldest reviewed study dated 01/05 11. Findings: Status post median sternotomy for CABG. Cardiomegaly. Mild interstitial edema. Small left p leural effusion. No pneumothorax. No acute osseous abnormality. Pacemaker leads in expected position. There is a cardiac valve replacement. Impression: 1: Cardiomegaly with pulmonary edema. Reviewed, dictated and finalized at location L. Impression: 1: Cardiomegaly with pulmonary edema.
--- NOTE | ~2023-05-03 | XR_ITS ---
XR chest 2V DATE: 05/03/2023 10:14 INDICATION: Shortness of breath. Bilateral lower extremity edema. History of hypertension. TECHNIQUE: AP and lateral views COMPARISON: 04/30/2023 CT chest FINDINGS: Sternal wire sutures and cardiac valve replacement are again noted. Left-sided triple lead pacemaker device with leads overlying right atrium, right ventricle and coats ry sinus. Cardiomegaly. There is pulmonary vascular congestion and redistribution. There are bilateral primaril y central and more more prominent lower lung zone infiltrates suggesting pulmonary edema. Pneumonia o r aspiration are not excluded. Mild pleural effusions. No pneumothorax. Aortic arch calcification. Osteopenia. IMPRESSION: Congestive heart failure Reviewed, dictated and finalized at location A. IMPRESSION: Congestive heart failure
--- NOTE | ~2023-05-03 | US_ITS ---
EXAMINATION: US venous doppler [facility] DATE: 05/06/2023 13:26 INDICATION: Lower limb swelling TECHNIQUE: Grayscale ultrasound images without and with compression and Doppler ultrasound images of the bilateral lower extremity veins were obtained. COMPARISON: None. FINDINGS: The visualized portions of right common femoral vein, profunda (deep) femoral vein, femoral vein, pop liteal vein, posterior tibial veins, peroneal veins, gastrocnemius vein and greater saphenous vein ou tflow are patent. The visualized portions of left common femoral vein, profunda femoral vein, femoral vein, popliteal v ein, posterior tibial veins, peroneal veins, gastrocnemius vein and greater saphenous vein outflow ar e patent. IMPRESSION: 1. No deep venous thrombosis in either lower limb. Reviewed, dictated and finalized at location A.
--- NOTE | 2023-05-03 09:08 | ECG_ITS ---
Measurements Intervals [place] Rate: 80 P: 147 NH: 143 QRS: 77 QRSD: 53 T: 35 QT: 305 QTc: 353 Interpretive Statements ELECTRONIC ATRIAL AND VENTRICULAR PACEMAKER ATYPICAL ECG COMPARED TO ECG 09/14/2020 11:43:58 NO SIGNIFICANT CHANGES Electronically Signed On 05-03-2023 9:16:02 CDT by Julito Flanagan M.D.
--- NOTE | 2023-05-03 09:12 | ED.SOB ---
HPI - SOB/Dyspnea General Chief Complaint: Shortness of Breath/Dyspnea <Eloina Presley PA-C - Last Filed: 05/03/23 14:06> Stated Complaint: sob <Eloina Presley PA-C - Last Filed: 05/03/23 14:06> Time Seen by Provider: 05/03/23 09:01 <Eloina Presley PA-C - Last Filed: 05/03/23 14:06> History of Present Illness HPI Narrative: Patient is a 78-year-old female with a history of interstitial lung disease on 5 L O2 at all times, paroxysmal A-fib status post pacemaker, CAD status post stenting, here due to acute on chronic shortness of breath. Patient states that she has some degree of chronic shortness of breath due to the above conditions but over the past week she has gotten acutely worse. This morning when she was going about her daily activities she felt very short of breath and came to the ED. She reports chronic productive cough. She had a 10 pound weight gain over the past week and reports lots of leg swelling and abdominal swelling. She has been compliant with her medicines including Lasix. Last echo in 08/2020 showed EF of 65%. No chest pain, abdominal pain, nausea, fevers, sinus congestion. <Eloina Presley PA-C - Last Filed: 05/03/23 14:06> Related Data Home Medications: Home Medications Medication Instructions Recorded Confirmed acetaminophen 500 mg tablet 500 mg PO Q6H PRN Pain 11/22/19 05/03/23 (Tylenol Extra Strength) calcitriol 0.25 mcg capsule 0.25 mcg PO QMWF 11/22/19 05/03/23 cholecalciferol (vitamin D3) 25 1,000 unit PO BID 11/22/19 05/03/23 mcg (1,000 unit) capsule diltiazem HCl 90 mg tablet 90 mg PO TID 11/22/19 05/03/23 furosemide 40 mg tablet 40 mg PO QAM 11/22/19 05/03/23 nitroglycerin 0.4 mg sublingual 0.4 mg sublingual Q5M PRN Chest 11/22/19 05/03/23 tablet (Nitrostat) Pain pravastatin 40 mg tablet 40 mg PO HS 11/22/19 05/03/23 brimonidine 0.2 % eye drops 1 drp ophthalmic (eye) BID 09/14/20 05/03/23 vit C 250 mg-vit E 90 mg-zinc 40 1 tablet PO BID 09/21/20 05/03/23 mg-copper 1 iv-clfevc-npincc capsule (PreserVision AREDS-2) dorzolamide 2 % eye drops 1 drp EACH EYE BID 01/08/21 05/03/23 ferrous sulfate 325 mg (65 mg 325 mg PO BID 01/08/21 05/03/23 iron) tablet (Feosol) latanoprost 0.005 % eye drops 1 drp EACH EYE DAILY 01/08/21 05/03/23 blood sugar diagnostic (FreeStyle 02/17/22 05/03/23 Test strips) cyanocobalamin (vitamin B-12) 500 500 mcg PO DAILY 05/09/22 05/03/23 mcg tablet (Vitamin B-12) epoetin saran-epbx 40,000 unit/mL 40,000 unit subcut MONTHLY 05/09/22 05/03/23 injection solution rivaroxaban 15 mg tablet (Xarelto) 15 mg PO DAILY 05/21/22 05/03/23 ascorbic acid (vitamin C) 500 mg 500 mg PO DAILY 07/09/22 05/03/23 capsule insulin aspar prot-insulin aspart 12 unit subcut QAM 05/03/23 05/03/23 100 unit/mL (70-30) subcutaneous pen (Novolog Mix 70-30FlexPen U-100) <Eloina Presley PA-C - Last Filed: 05/03/23 14:06> Allergies/Adverse Reactions: Allergies Allergy/AdvReac Type Severity Reaction Status Date / Time iodine Allergy Intermediate Hives Verified 04/15/23 12:03 Penicillins Allergy Intermediate Other Verified 04/15/23 12:03 Contrast Media Allergy Intermediate Hives Uncoded 04/15/23 12:03 <Eloina Presley PA-C - Last Filed: 05/03/23 14:06> Review of Systems Review of Systems: Gen.: Denies fevers or chills Eyes: Denies eye pain or visual change ENT: Denies congestion Respiratory: Reports shortness of breath reports cough CV: Denies chest pain or palpitations GI: Reports abdominal pain nausea, emesis or diarrhea denies burning, urgency, frequency or hematuria Musculoskeletal: Reports leg swelling Neuro: Denies numbness, tingling, weakness or focal weakness Skin: Denies rash 10 point review of systems negative, other than as per history of present illness, past medical history and other positives and review of systems <Eloina Presley PA-C - Last Filed: 05/03/23 1
[2023-05-03 09:21] LABS: Basophils Absolute Auto 0.1 K/mm3 (0.0-0.1); Basophils Percent Auto 0.6 % (0.2-1.2); Eosinophils Absolute Auto 0.3 K/mm3 (0-0.3); Eosinophils Percent Auto 3.1 % (0-4.4); Hematocrit 26.8 % (37.0-47.0); Hemoglobin 7.3 g/dL (12.0-15.0); Immature Granulocyte Absolute 0.05 K/mm3 (0.00-0.031); Immature Granulocyte Percent A 0.5 % (0-0.5); Lymphocytes Absolute Auto 0.73 K/mm3 (0.9-3.2); Lymphocytes Percent Auto 7.1 % (18.3-44.2); Mean Corpuscular HGB Conc 27.2 g/dl (32-36); Mean Corpuscular Volume 88.2 fl (80-100); Mean Platelet Volume 9.8 fl (7.4-10.4); Monocytes Absolute Auto 0.7 K/mm3 (0.1-0.6); Neutrophils Absolute Auto 8.4 K/mm3 (1.3-6.7); Neutrophils Percent Auto 81.7 % (45.5-73.1); Platelet Count Result 452 k/mm3 (150-375); Red Blood Count 3.04 M/mm3 (4.2-5.4); Red Cell Distribution Width 16.8 % (11.5-14.5); White Blood Count 10.2 K/mm3 (4.5-10.0)
[2023-05-03] MEDS: IPRATROPIUM BR 0.02% INH SOLN 0.5 MG/2.5 ML VIAL INHALATION ×3 (09:30→20:02)
[2023-05-03] MEDS: ALBUTEROL SULFATE NEB 2.5 MG/3 ML INH INHALATION ×3 (09:30→20:02)
[2023-05-03 09:31] LABS: INR 1.8; Prothrombin Time 22.3 Seconds (11.1-14.7)
[2023-05-03 09:32] LABS: Partial Thromboplastin Time 67.3 SECONDS (22.3-36.8)
[2023-05-03 09:37] LABS: Alanine Aminotransferase 13 U/L (6-35); Albumin Level 3.6 g/dL (3.5-5.1); Alkaline Phosphatase 76 U/L (38-126); Anion Gap 10 mmol/L (8-16); Aspartate Amino Transferase 22 U/L (14-36); Bilirubin,Total 0.4 mg/dL (0.2-1.3); Blood Urea Nitrogen 25 mg/dL (7-17); Calcium 8.4 mg/dL (8.4-10.2); Carbon Dioxide 27 mmol/L (22-30); Chloride 100 mmol/L (98-107); Estimated Glomerular Filt Rate 26; Glucose 59 mg/dL (65-110); Magnesium 2.7 mg/dL (1.6-2.3); Potassium 3.2 mmol/L (3.4-5.0); Sodium 137 mmol/L (137-145)
--- NOTE | 2023-05-03 09:37 | PC.NURSE ---
2 OJ given to pt d/t low blood glucose. To recheck blood glucose in 30 min.
[2023-05-03 09:41] LABS: Alveolar/Arterial O2 Gradient 190.6 mmHg; Base Excess ABG -0.9 mEq/l (+/-2.0); Fractional Inspired Oxygen 40 %; HCO3 ABG 23.1 mEq/l (22.0-26.0); Oxygen Content ABG 9.8 %vol (16.0-22.0); Oxygen Saturation ABG 89.4 % (95.0-100.0); PCO2 ABG 35.2 mmHg (35.0-45.0); PO2 ABG 54.1 mmHg (80.0-100.0); PO2 FiO2 Ratio Arterial Blood 1.35 %; Total Hemoglobin 8.1 g/dL (12.0-18.0); pH ABG 7.435 (7.350-7.450)
[2023-05-03 09:41] LABS: Anisocytosis 1+ (NORMAL); Hypochromasia 2+ (NORMAL); Schistocytes None Seen (NORMAL)
[2023-05-03 09:42] LABS: Device NASAL CANNULA; Modified Allen's Test Pass; Oxyhemoglobin 85.2 % THb (90.0-100.0); Site Drawn LEFT RADIAL
[2023-05-03 09:45] LABS: NT Pro B Type Natriuretic Pept 15200 pg/mL (19.9-100); Troponin I 0.028 ng/mL (0.000-0.034)
[2023-05-03] MEDS: FUROSEMIDE INJ 40 MG/4 ML VIAL IV PUSH ×2 (09:58→18:05)
[2023-05-03 10:18] LABS: Influenza A QL RT-PCR Negative (Negative); Influenza B QL RT-PCR Negative (Negative); SARS-CoV-2 RNA PCR Negative (Negative)
[2023-05-03 10:18] LABS: Glucose Point of Care 66 mg/dl (65-105)
--- NOTE | 2023-05-03 10:18 | PC.NURSE ---
Notified KODAK Duvall of patient blood glucose 66. awaiting new orders at this time.
[2023-05-03] MEDS: DEXTROSE 50% 25 GM/50 ML SYRINGE IV PUSH (10:21)
[2023-05-03 11:03] LABS: Appearance Urine Clear (Clear); Bacteria Urine None Seen /hpf; Bilirubin Urine Negative (Negative); Blood Urine Negative (Negative); Color Urine Yellow (Yellow); Glucose Urine UA Negative (Negative); Hyaline Casts Urine Present /lpf; Ketones Urine Negative (Negative); Leukocyte Esterase Ur Trace LEU/UL (Negative); Nitrate Urine Negative (Negative); Protein Urine Trace mg/dL (Negative); RBC Urine 0-2 /hpf (0-2); Specific Grav Ur 1.011 (1.001-1.035); Squamous Epithelial Cell Urine Occasional /hpf (Few); Urobilinogen Urine 0.2 mg/dL (<2.0); WBC Urine 0-5 /hpf
[2023-05-03 11:04] LABS: Add Urine Microscopic? YES
[2023-05-03] MEDS: POTASSIUM CHLORIDE 20 MEQ PACKET (FOR LIQUID) 40 MEQ PO (11:23)
--- NOTE | 2023-05-03 13:00 | PM.IMHP ---
H&P: HPI History of Present Illness Date/Time: 05/03/23 13:30 Chief Complaint: Shortness of breath. Narrative: This is a is a very pleasant 78-year-old female with multiple medical problems including chronic respiratory failure on home oxygen, systemic lupus erythematosus with interstitial lung disease and chronic bronchiectasis, pulmonary hypertension, obstructive sleep apnea, coronary artery disease with history of stent, valvular heart disease status post mitral valve and tricuspid valve repair, paroxysmal atrial fibrillation/flutter on long-term anticoagulation, chronic kidney disease stage 3 to 4, interstitial nephritis, anemia, type 2 diabetes mellitus, and several other comorbidities who presented to the emergency department via private vehicle from home for evaluation of shortness of breath.?The patient provides the following history. She is chronically short of breath but it seems to have gotten worse over the past 1 week or so. She has gained about 10 lb in the last week and reports a 27 lb weight gain since December. She saw her submarine operator several weeks ago for the swelling and she was told increase her Lasix dose. Unfortunately she continues to put on weight and she is uncomfortable. The swelling is now up to her abdomen. She has a chronic dry cough and chronic orthopnea, both which are unchanged. Her appetite is always poor and she has occasional dry heaves but no vomiting. On occasion she has chest tightness which she relates to her work of breathing. She denies fever, chills, and sweats. No syncope or near syncope. No exertional chest pain. She has not had sensations of racing heart or palpitations. She states compliance with her home medications. She believes that she follows a heart healthy diet though she does on occasion use extra salt but not much. Her vital signs were stable on arrival to the ED and her SpO2 is in the 90s on her usual 5 L. Labs were pretty consistent compared to prior testing aside [place] [id number]. Chest x-ray showed evidence of CHF. She received a dose of Lasix and she is being admitted in this setting for further diuresis. At the time my evaluation she does not have any specific complaints. She does mention that she had an echocardiogram done last Thursday at her submarine operator's office as there are plans in the next week or so to exchange her defibrillator. She does remember being told her most recent ejection fraction. Also of note she had a CT of the chest done a couple of days ago which showed pulmonary edema superimposed on chronic interstitial lung disease, small pleural effusions, and new ascites. Review of Systems Review of Systems: Twelve systems were reviewed and are negative except for as per HPI. [facility] Past Medical History Medical History Anemia of chronic disease With history of blood transfusion. Chronic back pain Chronic interstitial lung disease Never biopsied due to high risk. Chronic kidney disease, stage 4 (severe) Baseline creatinine ranges between 1.70 and 1.90. Chronic respiratory failure with hypoxia, on home oxygen therapy Coronary artery disease With history of stent in 2011. Current use of detention anticoagulation Essential hypertension Glaucoma Hyperlipidemia Hypertension Hypothyroidism Insulin dependent type 2 diabetes mellitus Interstitial nephritis Obstructive sleep apnea on CPAP Osteoarthritis Osteopenia Osteoporosis Paroxysmal atrial fibrillation Postmenopausal Surgical History Surgical History (Updated 05/03/23 @ 13:09 by Kandace Hanna PA-C) Biventricular automatic implantable cardioverter defibrillator in situ History of heart artery stent (2011) History of hysterectomy History of mitral valve repair (2014) History of permanent cardiac pacemaker placement History of tricuspid valve repair (2014) Family History Family History (Reviewed 05/03/23 @ 23:09 by Kandace Hanna PA-C
[2023-05-03 13:26] LABS: Glucose Point of Care 139 mg/dl (65-105)
--- NOTE | 2023-05-03 14:08 | ADMGEN ---
This patient, Geri Jaeger, was admitted to IMU Room 213-01 at 1330. Patient/family oriented to hospital policies and general routines including ID bracelet, bed and alarms, visiting hours, pain management, procedures, bathroom and other care routines, personal items, smoking policy, room service/diet, and visiting hours. Information on how to activate the Rapid Response Team has been discussed. Patient/Family are encouraged to report perceived risks to care and to ask questions if they do not understand what they are told or what they should do.
--- NOTE | 2023-05-03 14:38 | ADMGEN ---
This patient, Geri Jaeger, was admitted to IMU Room 213-01. Patient/family oriented to hospital policies and general routines including ID bracelet, bed and alarms, visiting hours, pain management, procedures, bathroom and other care routines, personal items, smoking policy, room service/diet, and visiting hours. Information on how to activate the Rapid Response Team has been discussed. Patient/Family are encouraged to report perceived risks to care and to ask questions if they do not understand what they are told or what they should do.
--- NOTE | 2023-05-03 16:30 | PM.CNPUL ---
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 BNP is 15,200. S he had her diuretics increased 3 days ago without improvement. Chest CT shows increased pulmonary edema with decrease size of Right lung nodule, good news. She has been on oxygen since 2016, now admitted with worsening hypoxemia, no CO2 retention. She was given diuretics with improvement in urine output. She has hypokalemia, potassium was replaced orally. This is not an exacerbation of interstitial lung disease. She does not need IV steroids. This is a volume problem. She may need a Cardiology consult. I am not sure what tipped her over the edge. She had increasing diuretics which did not help. She also has obstructive sleep apnea and uses CPAP 8 however with increasing pulmonary edema this was not tolerated. This is not a surprise. I think she would respond better to BiPAP and I discussed this with her. This patient is a never smoker, she does use albuterol and ipratropium at home and it is fine if she gets a here but these are not going to help significantly. Dr. Cali will continue to follow, he knows her well from clinic. (2) Acute on chronic congestive heart failure: Code(s): I50.9 - Heart failure, unspecified Status: Acute (3) Chronic interstitial lung disease: Code(s): J84.9 - Interstitial pulmonary disease, unspecified Status: Acute (4) Chronic respiratory failure with hypoxia, on home oxygen therapy: Code(s): J96.11 - Chronic respiratory failure with hypoxia; Z99.81 - Dependence on supplemental oxygen Status: Acute (5) Obstructive sleep apnea on CPAP: Code(s): G47.33 - Obstructive sleep apnea (adult) (pediatric); Z99.89 - Dependence on other enabling machines and devices Status: Acute Plan O2 to maintain saturation => 90%. BiPAP for sleep and to use in the day if needed for respiratory support. She does not appear to need steroids or antibiotics. Consider cardiology consultation. Will continue to follow with you. History of Present Illness History of Present Illness Consult date: 05/03/23 Requesting physician: Felipe Lorenz MD Chief complaint: Acute on Chronic Hypoxemic Resp Failure Narrative: Patient was seen on 05/03/2023 at 4:30 p.m. NEW CONSULT : Geri Jack a 78-year-old woman with SLE-associated interstitial lung disease, KAROLYN on CPAP 8 and 5 L in the day and night. She is a never smoker. She is followed by Dr Felipe Cali in our pulmonary clinic, last visit 12/17/22. On April 30, this past , she had a scheduled chest CT for ILD and lung nodules. She was not feeling well the day of the CT because she had a over a week of increased swelling and shortness of breath with huge increase in leg size. She saw her progress developer last Thursday, had her diuretic dose increased. However she continued to be more short of breath and had increased swelling of her lower body. She has been really short of breath, cannot use her CPAP 8 cm of water pressure at home. She feels like she is smothering. He sleeping poorly, just a few hours at a time because she cannot breathe she did not improve, came to the ER today for this, CXR showed pulmonary edema. The area in the RUL with the nodule shows a decrease in size. Her lab showed white count 10.2 K, more anemia H&H 7.3/26.8%, blood gas shows hypoxemia PO2 5
[2023-05-03 16:56] LABS: Glucose Point of Care 116 mg/dl (65-105)
[2023-05-03 20:08] LABS: Glucose Point of Care 143 mg/dl (65-105)
[2023-05-03] MEDS: CHOLECALCIFEROL 1,000 UNITS TABLET 1000 UNITS PO (21:00)
[2023-05-03] MEDS: RIVAROXABAN 15 MG TABLET PO (21:01)
[2023-05-03] MEDS: PRAVASTATIN SODIUM 20 MG TABLET 40 MG PO (21:01)
[2023-05-03] MEDS: BRIMONIDINE TARTRATE 0.2% OP SOLN 5 ML BTL 1 DROP EACH EYE (21:02)
[2023-05-03] MEDS: LATANOPROST 0.005% OP SOLN 2.5 ML BTL 1 DROP EACH EYE (21:03)
[2023-05-03] MEDS: DORZOLAMIDE HCL 2% OPHTH DROPS 1 DROP EACH EYE (21:03)
[2023-05-03] MEDS: dilTIAZem HCL 30 MG TABLET 90 MG PO (21:05)
[2023-05-03] MEDS: BENZONATATE 100 MG CAPSULE PO (21:13)
[2023-05-04] VITALS (31 sets, daily range): BP systolic 105–131; BP diastolic 37–89; PULSE 80–87; RESP 16–20; TEMP 36.1–36.5; O2SAT 91–100
--- NOTE | 2023-05-04 00:18 | PCRCNOTE ---
Pt states she cannot tolerate CPAP mask at this time. Pt states she only wears her home unit for 1-2 hours per night. I offered to titrate setting to make it more comfortable for her, she refused and said she does not want to wear the mask anymore tonight.
--- NOTE | 2023-05-04 00:55 | PC.NURSE ---
Patient sleeping with cpap on with 5L bleed in. Sats 79. Patient woke up and hi flow nasal cannula put back on. sats went up quickly with hi flow nasal cannula at 7L
[2023-05-04] MEDS: ALBUTEROL SULFATE NEB 2.5 MG/3 ML INH INHALATION ×4 (02:06→20:54)
[2023-05-04] MEDS: IPRATROPIUM BR 0.02% INH SOLN 0.5 MG/2.5 ML VIAL INHALATION ×4 (02:06→20:53)
[2023-05-04] MEDS: ACETAMINOPHEN 325 MG TABLET 650 MG PO ×2 (02:33→21:40)
[2023-05-04] MEDS: LATANOPROST 0.005% OP SOLN 2.5 ML BTL 1 DROP EACH EYE ×3 (02:37→21:25)
[2023-05-04] MEDS: OPTI-GEN TAB 1 TABLET PO ×3 (02:37→16:17)
[2023-05-04 05:34] LABS: Anion Gap 2 mmol/L (8-16); Blood Urea Nitrogen 26 mg/dL (7-17); Carbon Dioxide 30 mmol/L (22-30); Chloride 101 mmol/L (98-107); Estimated CRCL calculation 25 ml/min; Estimated Glomerular Filt Rate 29; Glucose 134 mg/dL (65-110); Magnesium 2.5 mg/dL (1.6-2.3); Sodium 133 mmol/L (137-145)
[2023-05-04 06:20] LABS: Hematocrit 24.2 % (37.0-47.0); Mean Corpuscular HGB Conc 27.3 g/dl (32-36); Mean Corpuscular Hemoglobin 23.6 pg (26-34); Mean Corpuscular Volume 86.4 fl (80-100); Mean Platelet Volume 9.7 fl (7.4-10.4); Platelet Count Result 351 k/mm3 (150-375); Red Cell Distribution Width 16.8 % (11.5-14.5); White Blood Count 9.4 K/mm3 (4.5-10.0)
[2023-05-04] MEDS: LEVOTHYROXINE SODIUM 50 MCG TABLET PO (06:32)
[2023-05-04 06:35] LABS: Hemoglobin 6.6 g/dL (12.0-15.0)
--- NOTE | 2023-05-04 08:01 | PM.IMPN ---
Progress Note: A&P Assessment and Plan (1) Acute on chronic congestive heart failure: Code(s): I50.9 - Heart failure, unspecified Status: Acute Assessment and Plan: Give Lasix prior to transfusion and again between units and then after, monitor strict I's/O's, daily standing weights (2) Hypokalemia: Code(s): E87.6 - Hypokalemia Status: Acute Assessment and Plan: Monitor and replete as necessary (3) Insulin dependent type 2 diabetes mellitus: Code(s): E11.9 - Type 2 diabetes mellitus without complications; Z79.4 - detention (current) use of insulin Status: Acute Assessment and Plan: Accu-Cheks with sliding scale insulin ordered, check A1c (4) Chronic kidney disease, stage 4 (severe): Code(s): N18.4 - Chronic kidney disease, stage 4 (severe) Status: Acute Assessment and Plan: Monitor creatinine closely, appears to be near baseline (5) Chronic respiratory failure with hypoxia, on home oxygen therapy: Code(s): J96.11 - Chronic respiratory failure with hypoxia; Z99.81 - Dependence on supplemental oxygen Status: Acute Assessment and Plan: Appreciate pulmonology consultation, continue supplemental oxygen, suspect pulmonary edema as opposed to infectious etiology (6) Chronic interstitial lung disease: Code(s): J84.9 - Interstitial pulmonary disease, unspecified Status: Acute Assessment and Plan: Pulm consult already placed from the ER (7) Chronic anemia: Code(s): D64.9 - Anemia, unspecified Status: Acute Assessment and Plan: Acute on chronic, check iron studies, transfused 2 units, check stool occult, PPI twice daily Consult GI stool occult is positive (8) Hypothyroidism: Qualifiers: Hypothyroidism type: unspecified Qualified Code(s): E03.9 - Hypothyroidism, unspecified Code(s): E03.9 - Hypothyroidism, unspecified Status: Acute Assessment and Plan: Check TSH, continue levothyroxine (9) Obstructive sleep apnea on CPAP: Code(s): G47.33 - Obstructive sleep apnea (adult) (pediatric); Z99.89 - Dependence on other enabling machines and devices Status: Acute Assessment and Plan: CPAP as tolerated (10) Paroxysmal atrial fibrillation: Code(s): I48.0 - Paroxysmal atrial fibrillation Status: Acute Assessment and Plan: Monitor telemetry, hold anticoagulation due to acute anemia concerning for blood loss Plan DVT prophylaxis with SCDs, hold Xarelto GI prophylaxis not indicated Code status full code Subjective Date/time seen: 05/04/23 08:01 Interval history: No overnight events noted. No chest pain or shortness of breath. No nausea, vomiting or diarrhea. No fevers or chills. She is c/o leg and abdominal edema, no wheezing. Review of Systems Review of Systems: 12 point review of systems was assessed and was negative except as noted in the HPI Exam Narrative: General: No acute distress, alert and oriented per baseline HEENT: Atraumatic, normocephalic, mucous membranes moist CV: Regular rate and rhythm, S1, S2 Lungs: Clear to auscultation bilaterally, no rales or crackles noted, no wheezes, good air entry Abdomen: Soft, nontender, nondistended, + swelling concerning for fluid Extremities: Normal to inspection, 2+ pitting edema B/L LE Skin: No rashes noted, no lesions or wounds seen Psych: Euthymic, normal affect Objective Data Vital Signs Vital Signs: Vital Signs - 24 hr 05/03/23 09:08 05/03/23 09:12 05/03/23 09:36 Temperature 97.8 F Pulse Rate 81 80 Respiratory Rate 24 H 17 Blood Pressure 125/51 L Pulse Oximetry 93 93 Oxygen Delivery Nasal Cannula Nasal Cannula Oxygen Flow Rate 5 5 05/03/23 09:48 05/03/23 13:01 05/03/23 13:14 Temperature Pulse Rate 80 83 80 Respiratory Rate 14 16 19 Blood Pressure Pulse Oximetry Oxy
[2023-05-04 08:14] LABS: Glucose Point of Care 138 mg/dl (65-105)
[2023-05-04 08:58] LABS: Free T4 Free Thyroxine Reflex 1.18 ng/dL (0.78-2.19)
[2023-05-04 11:12] LABS: Hematocrit 25.9 % (37.0-47.0)
[2023-05-04] MEDS: BENZONATATE 100 MG CAPSULE PO ×3 (11:18→16:33)
[2023-05-04] MEDS: POTASSIUM CHLORIDE 20 MEQ ER TABLET 40 MEQ PO (11:19)
[2023-05-04] MEDS: calcitrioL 0.25 MCG CAPSULE PO (11:19)
[2023-05-04] MEDS: ASCORBIC ACID 500 MG TABLET PO (11:19)
[2023-05-04] MEDS: dilTIAZem HCL 30 MG TABLET 90 MG PO ×3 (11:19→16:33)
[2023-05-04] MEDS: MAGNESIUM OXIDE 400 MG TABLET PO (11:19)
[2023-05-04] MEDS: CHOLECALCIFEROL 1,000 UNITS TABLET 1000 UNITS PO ×2 (11:19→16:16)
[2023-05-04] MEDS: FERROUS SULFATE 324 MG TABLET PO ×2 (11:19→16:16)
[2023-05-04 11:20] LABS: Immature Reticulocyte Fraction 35.6 % (3.0-15.9); Reticulocyte Hemoglobin Conten 19.2 pg (28.2-35.7); Reticulocytes Absolute 0.11 M/mm3 (0.02-0.1)
[2023-05-04] MEDS: BRIMONIDINE TARTRATE 0.2% OP SOLN 5 ML BTL 1 DROP EACH EYE ×3 (11:20→21:25)
[2023-05-04] MEDS: CYANOCOBALAMIN 500 MCG TABLET PO (11:20)
[2023-05-04] MEDS: DORZOLAMIDE HCL 2% OPHTH DROPS 1 DROP EACH EYE ×3 (11:21→21:25)
[2023-05-04] MEDS: FUROSEMIDE INJ 40 MG/4 ML VIAL IV PUSH ×2 (11:22→18:08)
--- NOTE | 2023-05-04 11:30 | PM.PNPUL ---
Progress Note: A&P Assessment and Plan (1) Chronic interstitial lung disease: Code(s): J84.9 - Interstitial pulmonary disease, unspecified Status: Acute Assessment and Plan: Patient has a history of lupus and also interstitial lung disease with? ground-glass airspace disease with some basilar interlobular septal thickening from 01/28/2021 with no change from September 15, 2020 but some mild progression from 09/26/2019 and a moderate restrictive abnormality on her PFTs.? ? CT scan 01/13/2022 demonstrated stable right upper lobe nodules and stable scattered mild ground-glass infiltrates compared to 01/28/21.? PFTs from 09/03/2021 showed a moderate restrictive ventilatory abnormality with a total lung capacity of 60% and no change from 08/06/20. Outpatient visit on 07/17/2022: She is clinically stable for the last 6 months on no? respiratory medicines and no medications for her lupus at this time.? She remains with dyspnea on exertion at 1/2 to 1 block at 5 L nasal cannula.? At this time patient is not interested in a referral to a interstitial lung disease clinic for consideration of an anti fibrotic agent.? Patient has a portable oxygen concentrator. outpatient visit on 12/17/2022: She is clinically stable for the last 6 months on no respiratory medicines and ? Has restarted rituximab in September 2022 and October 2022 for her lupus at this time.? She remains with dyspnea on exertion at 1/2 to 1 block at 5 L nasal cannula. ? she again tells me that she is not interested in a referral to a interstitial lung disease clinic for consideration of an anti fibrotic agent.? Patient had a portable oxygen concentrator? but had difficulties with the battery maintaining its charge and now prefers to use tanks. She is scheduled for her PFTs and CT scan on 01/13/2023. 01/16/23: Clinically the patient remains stable with PFTs demonstrating stable total lung capacity with improved FVC and FEV1 and a CT scan with worsening diffuse interstitial infiltrates and a new 8 mm right upper lobe nodule.? I will repeat a CT scan in 3 months. 04/21/2023: Saw Rheumatology, Dr Fong, stated she is doing fine, main concern was fluid, her main issue was back pain, referred to pain management, neck pain does not 1 spinal injections or neuro surgery. Add tizanidine does not want narcotics or to go to pain management. Once malignancy is ruled out we can decide on rituximab. 05/03/2023: The patient presents with fluid overload. CT scan of the chest shows pulmonary edema, small pleural effusions, decreased size of the right upper lobe nodule. she has no infectious complaints. She was treated with diuretics and did not require steroids or antibiotics. 05/04/23 patient tells me she continues to improve. She is breathing normal at rest. She states her swelling is better. She denies fever, chills, rigors or crackles. White blood cell count 9.4, creatinine 1.7. Cumulative diuresis since admission 1.6 L. currently she is on 6 L nasal cannula saturation 97% (home 5 L rest, ambulation and CPAP8 with 5 L bleed in). No evidence of interstitial lung disease exacerbation or pneumonia at this time. Discussed with Dr. Aburto. Will follow with you. (2) Acute on chronic congestive heart failure: Code(s): I50.9 - Heart failure, unspecified Status: Acute Assessment and Plan: Patient presents now with fluid overload and has improved with Lasix 40 IV b.i.d.. Net diuresis since admission is 1.6 L. Weight is stable at 78.2. Lower extremity edema is present but improved. Hypoxic respiratory failure is improving. 05/04 Agree with aggressive diureses as tolerated by her cardiac and renal systems. Currently on Lasix 40 IV b.i.d.. (3) Obstructive sleep apnea on CPAP: Code(s): G47.33 - Obstructive sleep apnea (adult) (pediatric); Z99.89 - Dependence on other enabling machines and devices Status: Acute Assessment and Plan: I obtained a down
[2023-05-04 11:31] LABS: Iron 21 ug/dL (37-170)
[2023-05-04 11:42] LABS: Percent Iron Saturation 5 % (20-50)
[2023-05-04 12:32] LABS: Folic Acid 6.6 ng/mL (2.76->20); Vitamin B12 > 1000.0 pg/mL (239-931)
[2023-05-04 12:50] LABS: Glucose Point of Care 139 mg/dl (65-105)
[2023-05-04 13:23] LABS: Total Triiodothyronine (T3) 1.14 NG/ML (0.97-1.69)
--- NOTE | 2023-05-04 13:41 | PCCCNOTE ---
On 05/04/23, the student, [Tara Marinelli], provided care and completed [facility] documentation on this patient. I have reviewed the student's documentation and agree with the findings.
[2023-05-04] MEDS: TUBING, BLOOD PLUM PUMP TUBING 1 EACH XX (15:10)
[2023-05-04] MEDS: SODIUM CHLORIDE 0.9% IV 250 ML 30 ML IV CONT (15:10)
[2023-05-04] MEDS: PANTOPRAZOLE SODIUM IV 40 MG VIAL IV PUSH ×2 (16:17→21:21)
[2023-05-04] MEDS: guaiFENesin/DEXTROMETHORPHAN 10 ML UDC 5 ML PO (16:33)
[2023-05-04 19:31] LABS: Glucose Point of Care 134 mg/dl (65-105)
[2023-05-04 20:15] LABS: Glucose Point of Care 166 mg/dl (65-105)
[2023-05-04] MEDS: PRAVASTATIN SODIUM 20 MG TABLET 40 MG PO (21:33)
[2023-05-04 22:36] LABS: Hematocrit 30.3 % (37.0-47.0); Hemoglobin 8.9 g/dL (12.0-15.0)
[2023-05-05] VITALS (18 sets, daily range): BP systolic 115–135; BP diastolic 42–60; PULSE 80–87; RESP 16–22; TEMP 36.3–36.7; O2SAT 87–100
[2023-05-05] MEDS: IPRATROPIUM BR 0.02% INH SOLN 0.5 MG/2.5 ML VIAL INHALATION (02:42)
[2023-05-05] MEDS: ALBUTEROL SULFATE NEB 2.5 MG/3 ML INH INHALATION (02:43)
[2023-05-05 05:05] LABS: Basophils Percent Auto 0.4 % (0.2-1.2); Eosinophils Absolute Auto 0.3 K/mm3 (0-0.3); Eosinophils Percent Auto 2.9 % (0-4.4); Hematocrit 33.4 % (37.0-47.0); Hemoglobin 9.7 g/dL (12.0-15.0); Immature Granulocyte Absolute 0.05 K/mm3 (0.00-0.031); Immature Granulocyte Percent A 0.5 % (0-0.5); Lymphocytes Percent Auto 3.9 % (18.3-44.2); Mean Corpuscular Hemoglobin 25.2 pg (26-34); Mean Corpuscular Volume 86.8 fl (80-100); Mean Platelet Volume 9.7 fl (7.4-10.4); Monocytes Absolute Auto 0.9 K/mm3 (0.1-0.6); Monocytes Percent Auto 9.2 % (2.6-8.5); Neutrophils Absolute Auto 8.5 K/mm3 (1.3-6.7); Neutrophils Percent Auto 83.1 % (45.5-73.1); Platelet Count Result 345 k/mm3 (150-375); Red Blood Count 3.85 M/mm3 (4.2-5.4); Red Cell Distribution Width 15.9 % (11.5-14.5); White Blood Count 10.2 K/mm3 (4.5-10.0)
[2023-05-05 05:12] LABS: Alanine Aminotransferase 13 U/L (6-35); Albumin Level 3.7 g/dL (3.5-5.1); Alkaline Phosphatase 89 U/L (38-126); Anion Gap 7 mmol/L (8-16); Aspartate Amino Transferase 22 U/L (14-36); Bilirubin,Total 0.8 mg/dL (0.2-1.3); Blood Urea Nitrogen 28 mg/dL (7-17); Calcium 8.6 mg/dL (8.4-10.2); Carbon Dioxide 26 mmol/L (22-30); Chloride 100 mmol/L (98-107); Estimated CRCL calculation 23 ml/min; Estimated Glomerular Filt Rate 27; Glucose 135 mg/dL (65-110); Potassium 4.8 mmol/L (3.4-5.0); Sodium 133 mmol/L (137-145)
[2023-05-05] MEDS: LEVOTHYROXINE SODIUM 50 MCG TABLET PO (05:57)
[2023-05-05 08:10] LABS: Glucose Point of Care 125 mg/dl (65-105)
--- NOTE | 2023-05-05 10:04 | PM.PNPUL ---
Progress Note: A&P Assessment and Plan (1) Chronic interstitial lung disease: Code(s): J84.9 - Interstitial pulmonary disease, unspecified Status: Acute Assessment and Plan: Patient has a history of lupus and also interstitial lung disease with? ground-glass airspace disease with some basilar interlobular septal thickening from 01/28/2021 with no change from September 15, 2020 but some mild progression from 09/26/2019 and a moderate restrictive abnormality on her PFTs.? ? CT scan 01/13/2022 demonstrated stable right upper lobe nodules and stable scattered mild ground-glass infiltrates compared to 01/28/21.? PFTs from 09/03/2021 showed a moderate restrictive ventilatory abnormality with a total lung capacity of 60% and no change from 08/06/20. Outpatient visit on 07/17/2022: She is clinically stable for the last 6 months on no? respiratory medicines and no medications for her lupus at this time.? She remains with dyspnea on exertion at 1/2 to 1 block at 5 L nasal cannula.? At this time patient is not interested in a referral to a interstitial lung disease clinic for consideration of an anti fibrotic agent.? Patient has a portable oxygen concentrator. outpatient visit on 12/17/2022: She is clinically stable for the last 6 months on no respiratory medicines and ? Has restarted rituximab in September 2022 and October 2022 for her lupus at this time.? She remains with dyspnea on exertion at 1/2 to 1 block at 5 L nasal cannula. ? she again tells me that she is not interested in a referral to a interstitial lung disease clinic for consideration of an anti fibrotic agent.? Patient had a portable oxygen concentrator? but had difficulties with the battery maintaining its charge and now prefers to use tanks. She is scheduled for her PFTs and CT scan on 01/13/2023. 01/16/23: Clinically the patient remains stable with PFTs demonstrating stable total lung capacity with improved FVC and FEV1 and a CT scan with worsening diffuse interstitial infiltrates and a new 8 mm right upper lobe nodule.? I will repeat a CT scan in 3 months. 04/21/2023: Saw Rheumatology, Dr Fong, stated she is doing fine, main concern was fluid, her main issue was back pain, referred to pain management, neck pain does not 1 spinal injections or neuro surgery. Add tizanidine does not want narcotics or to go to pain management. Once malignancy is ruled out we can decide on rituximab. 05/03/2023: The patient presents with fluid overload. CT scan of the chest shows pulmonary edema, small pleural effusions, decreased size of the right upper lobe nodule. she has no infectious complaints. She was treated with diuretics and did not require steroids or antibiotics. 05/04/23 patient tells me she continues to improve. She is breathing normal at rest. She states her swelling is better. She denies fever, chills, rigors or crackles. White blood cell count 9.4, creatinine 1.7. Cumulative diuresis since admission 1.6 L. currently she is on 6 L nasal cannula saturation 97% (home 5 L rest, ambulation and CPAP8 with 5 L bleed in). No evidence of interstitial lung disease exacerbation or pneumonia at this time. 05/05 Patient tells me she is breathing normal. She still has pedal edema. White blood cell count 10.2, creatinine 1.80, weight is 78 kilos, net diuresis from admission is -955 mL. Patient continues to improve with diuresis and no treatment for any interstitial lung disease related problems. Plan: The patient had previously not responded to bronchodilators as an outpatient is not sure the nebulization of albuterol and ipratropium were helping her now. I will discontinue the standing orders and leave a p.r.n. albuterol nebulizer order. Will follow with you. (2) Acute on chronic congestive heart failure: Code(s): I50.9 - Heart failure, unspecified Status: Acute Assessment and Plan: 05/03 Patient presents now with fluid overload and has improved with Lasix 40
[2023-05-05] MEDS: OPTI-GEN TAB 1 TABLET PO ×2 (10:17→16:27)
[2023-05-05] MEDS: DORZOLAMIDE HCL 2% OPHTH DROPS 1 DROP EACH EYE ×2 (10:17→20:39)
[2023-05-05] MEDS: BRIMONIDINE TARTRATE 0.2% OP SOLN 5 ML BTL 1 DROP EACH EYE ×2 (10:17→20:38)
[2023-05-05] MEDS: dilTIAZem HCL 30 MG TABLET 90 MG PO ×3 (10:18→16:31)
[2023-05-05] MEDS: BENZONATATE 100 MG CAPSULE PO (10:18)
[2023-05-05] MEDS: DOCUSATE SODIUM 100 MG CAPSULE PO (10:18)
[2023-05-05] MEDS: CHOLECALCIFEROL 1,000 UNITS TABLET 1000 UNITS PO ×2 (10:18→16:27)
[2023-05-05] MEDS: FERROUS SULFATE 324 MG TABLET PO ×2 (10:18→16:29)
[2023-05-05] MEDS: CYANOCOBALAMIN 500 MCG TABLET PO (10:19)
[2023-05-05] MEDS: POTASSIUM CHLORIDE 20 MEQ ER TABLET 40 MEQ PO (10:19)
[2023-05-05] MEDS: MAGNESIUM OXIDE 400 MG TABLET PO (10:19)
[2023-05-05] MEDS: ASCORBIC ACID 500 MG TABLET PO (10:19)
[2023-05-05] MEDS: PANTOPRAZOLE SODIUM IV 40 MG VIAL IV PUSH ×2 (10:20→20:39)
[2023-05-05] MEDS: FUROSEMIDE INJ 40 MG/4 ML VIAL IV PUSH ×2 (10:20→16:31)
--- NOTE | 2023-05-05 10:42 | P.CDI_ITS ---
CDI Query Clarification Request Documented history of CHF. CHF noted on the assessment and plan. Furosemide listed as a home medication. Patient receiving IV Lasix. Patient reports increasing edema to BLE and abdomen and a 10 pound weight gain over a week. CHF noted on the 05/03/23 chest xray. Elevated BNP on 05/03/23 lab work. Please specify type and acuity of heart failure if known. * Acute * Chronic * Acute on Chronic * Unknown * Systolic * Diastolic * Combined Systolic and Diastolic * Unknown <Reyna Pedroza RN - Last Filed: 05/05/23 10:48> Clarified Diagnosis Clarified Diagnosis: acute on chronic diastolic heart failure <Annel Aburto DO - Last Filed: 05/05/23 19:24>
[2023-05-05 12:17] LABS: Glucose Point of Care 201 mg/dl (65-105)
[2023-05-05 14:36] LABS: IFOB Positive Control Positive; Immunochemical Fecal Occult Bl Positive (N)
--- NOTE | 2023-05-05 15:35 | PCPTNOTE ---
On 05/05/23, the student, [Marixa Willard], provided care and completed [facility] documentation on this patient. I have reviewed the student's documentation and agree with the findings.
[2023-05-05] MEDS: BENZONATATE 100 MG CAPSULE 200 MG PO (16:28)
[2023-05-05 17:24] LABS: Glucose Point of Care 132 mg/dl (65-105)
--- NOTE | 2023-05-05 19:24 | PM.IMPN ---
Progress Note: A&P Assessment and Plan (1) Acute on chronic congestive heart failure: Code(s): I50.9 - Heart failure, unspecified Status: Acute Assessment and Plan: Give Lasix prior to transfusion and again between units and then after, monitor strict I's/O's, daily standing weights Cardio consult pending, still quite edematous despite increased lasix dosing and adequate UOP, starting to have elevated creatinine Echo report on chart from 04/2023 other facility, indeterminate diastolic function with EF 70%, cor pulmonale Down about 1L from admission, cont diuresis, improving slowly (2) Hypokalemia: Code(s): E87.6 - Hypokalemia Status: Acute Assessment and Plan: Monitor and replete as necessary (3) Insulin dependent type 2 diabetes mellitus: Code(s): E11.9 - Type 2 diabetes mellitus without complications; Z79.4 - longterm (current) use of insulin Status: Acute Assessment and Plan: Accu-Cheks with sliding scale insulin ordered, check A1c (4) Chronic kidney disease, stage 4 (severe): Code(s): N18.4 - Chronic kidney disease, stage 4 (severe) Status: Acute Assessment and Plan: Monitor creatinine closely, appears to be near baseline (5) Chronic respiratory failure with hypoxia, on home oxygen therapy: Code(s): J96.11 - Chronic respiratory failure with hypoxia; Z99.81 - Dependence on supplemental oxygen Status: Acute Assessment and Plan: Appreciate pulmonology consultation, continue supplemental oxygen, suspect pulmonary edema as opposed to infectious etiology (6) Chronic interstitial lung disease: Code(s): J84.9 - Interstitial pulmonary disease, unspecified Status: Acute Assessment and Plan: Appreciate pulmonology consult, patient apparently refusing further treatment for her ILD (7) Chronic anemia: Code(s): D64.9 - Anemia, unspecified Status: Acute Assessment and Plan: Acute on chronic, check iron studies, transfused 2 units, check stool occult, PPI twice daily Consult GI, stool occult is positive (8) Hypothyroidism: Qualifiers: Hypothyroidism type: unspecified Qualified Code(s): E03.9 - Hypothyroidism, unspecified Code(s): E03.9 - Hypothyroidism, unspecified Status: Acute Assessment and Plan: Check TSH, continue levothyroxine (9) Obstructive sleep apnea on CPAP: Code(s): G47.33 - Obstructive sleep apnea (adult) (pediatric); Z99.89 - Dependence on other enabling machines and devices Status: Acute Assessment and Plan: CPAP as tolerated (10) Paroxysmal atrial fibrillation: Code(s): I48.0 - Paroxysmal atrial fibrillation Status: Acute Assessment and Plan: Monitor telemetry, hold anticoagulation due to acute anemia concerning for blood loss Plan Lupus-stable DVT prophylaxis with SCDs, hold Xarelto GI prophylaxis not indicated Code status full code Subjective Date/time seen: 05/05/23 19:24 Interval history: No overnight events noted. No chest pain or shortness of breath. No nausea, vomiting or diarrhea. No fevers or chills. Slowly improving, still quite edematous in her legs, abdomen and buttocks. Review of Systems Review of Systems: 12 point review of systems was assessed and was negative except as noted in the HPI Exam Narrative: General: No acute distress, alert and oriented per baseline HEENT: Atraumatic, normocephalic, mucous membranes moist CV: Regular rate and rhythm, S1, S2 Lungs: Clear to auscultation bilaterally, no rales or crackles noted, no wheezes, good air entry Abdomen: Soft, nontender, nondistended, + swelling concerning for fluid Extremities: Normal to inspection, 1+ pitting edema B/L LE, buttocks and lower abdomen also pitting edema noted Skin: No rashes noted, no lesions or wounds seen Psych: Euthymic, normal affect Objective D
[2023-05-05 20:27] LABS: Glucose Point of Care 140 mg/dl (65-105)
[2023-05-05] MEDS: LATANOPROST 0.005% OP SOLN 2.5 ML BTL 1 DROP EACH EYE (20:38)
[2023-05-05] MEDS: PRAVASTATIN SODIUM 20 MG TABLET 40 MG PO (20:39)
[2023-05-05] MEDS: guaiFENesin/DEXTROMETHORPHAN 10 ML UDC 5 ML PO (20:43)
[2023-05-06] VITALS (19 sets, daily range): BP systolic 108–137; BP diastolic 46–64; PULSE 77–81; RESP 16–25; TEMP 36.3–36.8; O2SAT 86–100
--- NOTE | 2023-05-06 02:10 | PCRCNOTE ---
Ended Apnea link because Pt SPO2 went down to 79% and she was not comfortable continuing with study.
[2023-05-06 05:41] LABS: Basophils Percent Auto 0.4 % (0.2-1.2); Eosinophils Absolute Auto 0.4 K/mm3 (0-0.3); Eosinophils Percent Auto 5.2 % (0-4.4); Hematocrit 30.9 % (37.0-47.0); Hemoglobin 8.9 g/dL (12.0-15.0); Immature Granulocyte Absolute 0.04 K/mm3 (0.00-0.031); Immature Granulocyte Percent A 0.5 % (0-0.5); Lymphocytes Absolute Auto 0.33 K/mm3 (0.9-3.2); Lymphocytes Percent Auto 3.9 % (18.3-44.2); Mean Corpuscular HGB Conc 28.8 g/dl (32-36); Mean Corpuscular Hemoglobin 24.7 pg (26-34); Mean Corpuscular Volume 85.6 fl (80-100); Mean Platelet Volume 9.4 fl (7.4-10.4); Monocytes Absolute Auto 0.8 K/mm3 (0.1-0.6); Monocytes Percent Auto 8.8 % (2.6-8.5); Neutrophils Absolute Auto 6.9 K/mm3 (1.3-6.7); Neutrophils Percent Auto 81.2 % (45.5-73.1); Platelet Count Result 293 k/mm3 (150-375); Red Blood Count 3.61 M/mm3 (4.2-5.4); Red Cell Distribution Width 16.1 % (11.5-14.5); White Blood Count 8.5 K/mm3 (4.5-10.0)
[2023-05-06 05:49] LABS: Alanine Aminotransferase 11 U/L (6-35); Albumin Level 3.2 g/dL (3.5-5.1); Alkaline Phosphatase 81 U/L (38-126); Anion Gap 3 mmol/L (8-16); Aspartate Amino Transferase 20 U/L (14-36); Bilirubin,Total 0.6 mg/dL (0.2-1.3); Blood Urea Nitrogen 29 mg/dL (7-17); Calcium 8.4 mg/dL (8.4-10.2); Carbon Dioxide 29 mmol/L (22-30); Chloride 101 mmol/L (98-107); Estimated CRCL calculation 23 ml/min; Estimated Glomerular Filt Rate 27; Glucose 92 mg/dL (65-110); Potassium 4.9 mmol/L (3.4-5.0); Sodium 133 mmol/L (137-145)
[2023-05-06 06:05] LABS: Hypochromasia 1+ (NORMAL); Platelet Estimate Adequate (Adequate); Schistocytes None Seen (NORMAL)
[2023-05-06] MEDS: LEVOTHYROXINE SODIUM 50 MCG TABLET PO (06:09)
--- NOTE | 2023-05-06 06:55 | WPDGICN ---
Assessment and Plan Assessment and plan (1) Chronic anemia: Code(s): D64.9 - Anemia, unspecified Status: Acute Assessment and Plan: her hemoglobin usually runs around 8.5. Several time she has had a drop in her hemoglobin to the 6 is. Received a blood transfusion in March of this year and received 1 more unit this admission when her counts dropped again to 6.6. She has never seen blood her stools and endoscopic investigation was unrevealing. She has multiple reasons for being anemic including chronic kidney disease and anemia due to chronic disease including lupus. (2) Anemia of chronic renal failure, stage 4 (severe): Code(s): N18.4 - Chronic kidney disease, stage 4 (severe); D63.1 - Anemia in chronic kidney disease Status: Acute Assessment and Plan: This time sugar is the explanation for her baseline anemia with a hemoglobin of about 8.5 over the past few years (3) Chronic kidney disease, stage 4 (severe): Code(s): N18.4 - Chronic kidney disease, stage 4 (severe) Status: Acute (4) Lupus (systemic lupus erythematosus): Code(s): M32.9 - Systemic lupus erythematosus, unspecified Status: Acute (5) Acute diastolic CHF (congestive heart failure): Code(s): I50.31 - Acute diastolic (congestive) heart failure Status: Acute (6) Acute on chronic respiratory failure with hypoxemia: Code(s): J96.21 - Acute and chronic respiratory failure with hypoxia Status: Acute Assessment and Plan: on admission her SpO2 was in the 90s. (7) Acute on chronic congestive heart failure: Code(s): I50.9 - Heart failure, unspecified Status: Acute GI Consult Note Consult date/time: 05/06/23 06:55 HPI: Geri Jaeger is a 78 year old female Who suffers from multiple conditions including pulmonary hypertension, systemic lupus, interstitial lung disease, congestive heart failure, atrial fibrillation / flutter for which she is on long-term anticoagulation and also chronic kidney disease. She is diabetic. She has had surgery on her tricuspid and mitral valves. she is here now because she has gained a great deal of weight. She states that she has gained at least 25 lb. It is making her abdomen tight. She states that they are gradually removing the fluid from her. She was found to be anemic. She suffers from chronic anemia and every now and then will have a drop in her blood counts. This time her hemoglobin was down to 6.6 2 days ago after having bed 7.3 the day before. In March and she had blood transfusion when her hemoglobin dropped to 6.7 bring her hemoglobin up to 8.5. Looking back at least 2 years her hemoglobin usually ranges between 7.5 and 8.7 at best. She did have EGD and colonoscopy last year to investigate her anemia and nothing significant was found, Other than large internal hemorrhoids and diverticulosis. 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 She cannot have a capsule study of the small bowel because of the defibrillator pacemaker. She denies any loss of appetite or nausea. She states her abdomen is sore because of all the fluid. She has not seen blood her stools nor has she had black or tarry stools. She was found have occult blood her stool on testing yesterday was disappointed about that. I reminded her that simply being on anticoagulants will give a person a false-positive in many cases. Review of Systems Review of Systems: All systems reviewed & are unremarkable except as noted in HPI and below [facility] Past Medical History Medical History (Updated 05/07/23 @ 10:23 by Berenice Gould MD) Acute on chronic diastolic CHF (congestive heart failure) Anemia Anemia of chronic disease With history of blood transfusion. Biventricular ICD (implantable cardioverter-defibrillator) in place Chronic back milind
[2023-05-06 07:51] LABS: Glucose Point of Care 106 mg/dl (65-105)
[2023-05-06 08:11] LABS: NT Pro B Type Natriuretic Pept 14300 pg/mL (19.9-100)
[2023-05-06] MEDS: CHOLECALCIFEROL 1,000 UNITS TABLET 1000 UNITS PO ×2 (08:53→17:19)
[2023-05-06] MEDS: BENZONATATE 100 MG CAPSULE 200 MG PO ×3 (08:53→17:18)
[2023-05-06] MEDS: calcitrioL 0.25 MCG CAPSULE PO (08:53)
[2023-05-06] MEDS: dilTIAZem HCL 30 MG TABLET 90 MG PO ×3 (08:53→17:20)
[2023-05-06] MEDS: FUROSEMIDE INJ 40 MG/4 ML VIAL IV PUSH ×2 (08:54→17:24)
[2023-05-06] MEDS: FERROUS SULFATE 324 MG TABLET PO ×2 (08:54→17:19)
[2023-05-06] MEDS: ASCORBIC ACID 500 MG TABLET PO (08:54)
[2023-05-06] MEDS: MAGNESIUM OXIDE 400 MG TABLET PO (08:54)
[2023-05-06] MEDS: PANTOPRAZOLE SODIUM IV 40 MG VIAL IV PUSH ×2 (08:56→20:06)
--- NOTE | 2023-05-06 10:20 | PM.CNCAR ---
Assessment and Plan Assessment and plan (1) Acute on chronic diastolic CHF (congestive heart failure): Code(s): I50.33 - Acute on chronic diastolic (congestive) heart failure Status: Acute Assessment and Plan: Patient has a history of diastolic CHF, and was admitted with severe volume overload and acute exacerbation. She states this is the worst she has ever been. Probably aggravated by her anemia. Echo last week showed normal LV function and intact valve repairs. Her Bi V ICD has reached elective replacement interval, it looks like on telemetry she is pacing consistently at 60 beats per minute, so her rate response may have been shut off since she reached CAIT. Sometimes other functions will turn off to preserve battery energy as well, leading to less than optimal, but adequate, functioning. I think the best we can do is diurese her to improve sx, and get her tuned up for her generator replacement scheduled for May [address] Frias. --continue furosemide 40 mg IV push b.i.d. --Potassium creeping up; will reduce to 20 mEq daily --Daily BMP --Add Jardiance 10 mg daily (2) Biventricular ICD (implantable cardioverter-defibrillator) in place: Code(s): Z95.810 - Presence of automatic (implantable) cardiac defibrillator Status: Acute Assessment and Plan: Bi V ICD that has reached elective replacement interval. Functioning adequately. --Scheduled for generator change on May [address] Frias. (3) Anemia: Code(s): D64.9 - Anemia, unspecified Status: Acute Assessment and Plan: Significant anemia, microcytic, FOB positive, status post 2 units of packed cells. -- Xarelto has been discontinued -- apparently has a history of anemia and sees a director counseling bureau. (4) Paroxysmal atrial fibrillation: Code(s): I48.0 - Paroxysmal atrial fibrillation Status: Acute Assessment and Plan: History of PAF, currently AV paced. Xarelto held due to anemia. 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 Also has KAROLYN and compliant with CPAP the recently has trouble wearing it long due to her orthopnea. Followed by Dr. Cali in Pulmonary. (6) Chronic kidney disease, stage 4 (severe): Code(s): N18.4 - Chronic kidney disease, stage 4 (severe) Status: Acute Assessment and Plan: At baseline. -- Daily BMP History of Present Illness History of Present Illness Consult date/time: 05/06/23 10:20 Reason For Visit: Acute on Chronic Hypoxemic Resp Failure Narrative: Geri Jaeger is a 78 y.o. female whom we were asked to see at the request of Dr. Aburto for advice and opinion regarding her heart failure, in consultation. The patient has a history of CHF and has been followed by Dr. Sharon Pressley at [facility]. She has had mitral and tricuspid valve repairs by Dr. Barclay last several years ago, history of atrial fibrillation, a Biotronik Bi V ICD upgrade in 2016 and diabetes. She also has CKD stage 4 and interstitial lung disease due to lupus, on home O2. Apparently has had anemia before in sees a director counseling bureau. Hematocrit has been down to 7.9 in the past Ms Jaeger has had significant swelling and weight gain of 27 lb over last few weeks/months. She saw Dr. Frias at [facility] last week and needs to have a pacemaker generator change, scheduled for May 14. Also she had an echo done. Her breathing got worse, w/ orthopnea and SCHULTZ, and she had chest pressure supine. No palps. She was admitted through the emergency room on 05/03/2023 with CHF, she has been started on IV Lasix with improvement. Her hematocrit was also down to 24, FOB positive and she has been given 2 units of packed cells. Her Xarelto is on hold. Call Dr. Pressley
[2023-05-06] MEDS: CYANOCOBALAMIN 500 MCG TABLET PO (10:46)
[2023-05-06] MEDS: OPTI-GEN TAB 1 TABLET PO ×2 (10:46→17:21)
--- NOTE | 2023-05-06 12:02 | P.PNPL_ITS ---
Progress Note: A&P Assessment and Plan (1) Chronic interstitial lung disease: Code(s): J84.9 - Interstitial pulmonary disease, unspecified Status: Acute Assessment and Plan: Patient has a history of lupus and also interstitial lung disease with? ground- glass airspace disease with some basilar interlobular septal thickening from 01/28/2021 with no change from September 15, 2020 but some mild progression from 11/26/2018 and a moderate restrictive abnormality on her PFTs.? ? CT scan 01/13/2022 demonstrated stable right upper lobe nodules and stable scattered mild ground-glass infiltrates compared to 01/28/21.? PFTs from 09/03/2021 showed a moderate restrictive ventilatory abnormality with a total lung capacity of 60% and no change from 08/06/20. Outpatient visit on 07/17/2022: She is clinically stable for the last 6 months on no? respiratory medicines and no medications for her lupus at this time.? She remains with dyspnea on exertion at 1/2 to 1 block at 5 L nasal cannula.? At this time patient is not interested in a referral to a interstitial lung disease clinic for consideration of an anti fibrotic agent.? Patient has a portable oxygen concentrator. outpatient visit on 12/17/2022: She is clinically stable for the last 6 months on no respiratory medicines and ? Has restarted rituximab in September 2022 and October 2022 for her lupus at this time.? She remains with dyspnea on exertion at 1/2 to 1 block at 5 L nasal cannula. ? she again tells me that she is not interested in a referral to a interstitial lung disease clinic for consideration of an anti fibrotic agent.? Patient had a portable oxygen concentrator? but had difficulties with the battery maintaining its charge and now prefers to use tanks. She is scheduled for her PFTs and CT scan on 01/13/2023. 01/16/23: Clinically the patient remains stable with PFTs demonstrating stable total lung capacity with improved FVC and FEV1 and a CT scan with worsening diffuse interstitial infiltrates and a new 8 mm right upper lobe nodule.? I will repeat a CT scan in 3 months. 04/21/2023: Saw Rheumatology, Dr Fong, stated she is doing fine, main concern was fluid, her main issue was back pain, referred to pain management, neck pain does not 1 spinal injections or neuro surgery. Add tizanidine does not want narcotics or to go to pain management. Once malignancy is ruled out we can decide on rituximab. 05/03/2023: The patient presents with fluid overload. CT scan of the chest shows pulmonary edema, small pleural effusions, decreased size of the right upper lobe nodule. she has no infectious complaints. She was treated with diuretics and did not require steroids or antibiotics. 05/04/23 patient tells me she continues to improve. She is breathing normal at rest. She states her swelling is better. She denies fever, chills, rigors or crackles. White blood cell count 9.4, creatinine 1.7. Cumulative diuresis since admission 1.6 L. currently she is on 6 L nasal cannula saturation 97% (home 5 L rest, ambulation and CPAP8 with 5 L bleed in). No evidence of interstitial lung disease exacerbation or pneumonia at this time. 05/05 Patient tells me she is breathing normal. She still has pedal edema. White blood cell count 10.2, creatinine 1.80, weight is 78 kilos, net diuresis from admission is -955 mL. Patient continues to improve with diuresis and no treatment for any interstitial lung disease related problems. Plan: The patient had previously not responded to bronchodilators as an outpatient is not sure the nebulization of albuterol and ipratropium were helping her now. I will discontinue the standing orders and leave a p.r.n. albuterol nebulizer order. 05/06 Currently the p
[2023-05-06] MEDS: BRIMONIDINE TARTRATE 0.2% OP SOLN 5 ML BTL 1 DROP EACH EYE ×2 (12:03→20:06)
[2023-05-06] MEDS: DORZOLAMIDE HCL 2% OPHTH DROPS 1 DROP EACH EYE ×2 (12:04→20:07)
[2023-05-06 12:12] LABS: Glucose Point of Care 127 mg/dl (65-105)
[2023-05-06] MEDS: POTASSIUM CHLORIDE 20 MEQ ER TABLET PO (12:49)
--- NOTE | 2023-05-06 14:25 | PCRCNOTE ---
Addendum entered by Divya Mendez, COUNTER STITCHER 05/07/23 10:01: Predicted VC 2.46 L (GLI 2012 reference) Patient's VC of 1 L = 41% of predicted. Original Note: VC was performed with a result of 1 Liter.
--- NOTE | 2023-05-06 16:22 | PM.IMPN ---
Progress Note: A&P Assessment and Plan (1) Acute on chronic congestive heart failure: Code(s): I50.9 - Heart failure, unspecified Status: Acute Assessment and Plan: Patient is still very edematous. Echo report on chart from 04/2023 other facility, indeterminate diastolic function with EF 70%, cor pulmonale. Probably acute on chronic diastolic CHF with right sided failure as well. I/O: -2245 Continue IV Lasix. Strict I's/O's, daily standing weights Cardio consulted and appreciate their input. Empagliflozin added but have to be cautious with eGFR 27. (2) Hypokalemia: Code(s): E87.6 - Hypokalemia Status: Acute Assessment and Plan: Potassium replaced and now potassium 4.9. oral potassium dose being reduced. Monitor and adjust as necessary (3) Insulin dependent type 2 diabetes mellitus: Code(s): E11.9 - Type 2 diabetes mellitus without complications; Z79.4 - intermediate (current) use of insulin Status: Acute Assessment and Plan: The patient's blood glucose was reviewed on 05/06 Glucose remains well controlled. Continue AccuCheks covering with sliding scale. Hypoglycemia protocol available as needed. Continue to monitor (4) Chronic kidney disease, stage 4 (severe): Code(s): N18.4 - Chronic kidney disease, stage 4 (severe) Status: Acute Assessment and Plan: Cr baseline 1.6-1.9. Cr 1.8 and stable. She is tolerating diuresis. Monitor creatinine closely. (5) Chronic respiratory failure with hypoxia, on home oxygen therapy: Code(s): J96.11 - Chronic respiratory failure with hypoxia; Z99.81 - Dependence on supplemental oxygen Status: Acute Assessment and Plan: She is at her baseline 5L O2 NC. She is having hypoxia at night so AVAPS ordered with plans for Apnea link tonight. Appreciate pulmonology input. (6) Chronic interstitial lung disease: Code(s): J84.9 - Interstitial pulmonary disease, unspecified Status: Acute Assessment and Plan: Appreciate pulmonology consult, patient apparently refusing further treatment for her ILD. (7) Chronic anemia: Code(s): D64.9 - Anemia, unspecified Status: Acute Assessment and Plan: Hgb 7.3 on admission and dropped to 6.6. She has chronic anemia requiring transfusions in the past. Stool occult blood positive. GI consulted and appreciate their input. Patient has had EGD in May 2022 showing reflux esophagitis and gastritis with bleeding; Colonoscopy May 2022 showing diverticulosis and internal hemorrhoids. Anemia could be multifactorial from CKD, SLE, anticoagulation. Xarelto on hold. She is on PPI. Transfused 2U on 05/04. Hgb 8 range since. Follow. (8) Hypothyroidism: Qualifiers: Hypothyroidism type: unspecified Qualified Code(s): E03.9 - Hypothyroidism, unspecified Code(s): E03.9 - Hypothyroidism, unspecified Status: Acute Assessment and Plan: TSH 6.3. Continue levothyroxine (9) Obstructive sleep apnea on CPAP: Code(s): G47.33 - Obstructive sleep apnea (adult) (pediatric); Z99.89 - Dependence on other enabling machines and devices Status: Acute Assessment and Plan: As above. (10) Paroxysmal atrial fibrillation: Code(s): I48.0 - Paroxysmal atrial fibrillation Status: Acute Assessment and Plan: Rate controlled. Continue diltiazem. Anticoagulation on hold due to acute anemia. Monitor on tele Plan Lupus-stable DVT prophylaxis with SCDs, hold Xarelto GI prophylaxis not indicated Code status full code Subjective Date/time seen: 05/06/23 16:22 Interval history: 78yo female with CHF, DM, CKD and chronic respiratory failure here for shortness of breath. Assuming care. Chart reviewed. SOB better. Cough better and mostly nonproductive (occasionally clear sputum). Normally on 5L chronically. No CP. Eating okay. She feels the LE edema is less tight. Exam Arron
[2023-05-06 16:35] LABS: Glucose Point of Care 124 mg/dl (65-105)
[2023-05-06] MEDS: PRAVASTATIN SODIUM 20 MG TABLET 40 MG PO (20:06)
[2023-05-06] MEDS: LATANOPROST 0.005% OP SOLN 2.5 ML BTL 1 DROP EACH EYE (20:06)
[2023-05-06] MEDS: guaiFENesin/DEXTROMETHORPHAN 10 ML UDC 5 ML PO (20:08)
[2023-05-06 20:09] LABS: Glucose Point of Care 185 mg/dl (65-105)
[2023-05-07] VITALS (19 sets, daily range): BP systolic 113–131; BP diastolic 45–58; PULSE 65–82; RESP 16–19; TEMP 36.3–36.9; O2SAT 91–99
[2023-05-07] MEDS: LEVOTHYROXINE SODIUM 50 MCG TABLET PO (05:45)
[2023-05-07 06:02] LABS: Alveolar/Arterial O2 Gradient 198.5 mmHg; Base Excess ABG 1.5 mEq/l (+/-2.0); Fractional Inspired Oxygen 45 %; HCO3 ABG 26.2 mEq/l (22.0-26.0); Oxygen Content ABG 13.3 %vol (16.0-22.0); Oxygen Saturation ABG 95.2 % (95.0-100.0); Oxyhemoglobin 93.7 % THb (90.0-100.0); PCO2 ABG 41.7 mmHg (35.0-45.0); PO2 ABG 74.9 mmHg (80.0-100.0); PO2 FiO2 Ratio Arterial Blood 1.66 %; pH ABG 7.416 (7.350-7.450)
[2023-05-07 06:03] LABS: Device BIPAP; Site Drawn RIGHT BRACHIAL
[2023-05-07 06:04] LABS: Expiratory Pressure 8 cmH2O
[2023-05-07 08:14] LABS: Glucose Point of Care 108 mg/dl (65-105)
[2023-05-07] MEDS: PANTOPRAZOLE SODIUM IV 40 MG VIAL IV PUSH ×2 (08:30→20:20)
[2023-05-07] MEDS: DORZOLAMIDE HCL 2% OPHTH DROPS 1 DROP EACH EYE ×2 (08:31→20:20)
[2023-05-07] MEDS: BRIMONIDINE TARTRATE 0.2% OP SOLN 5 ML BTL 1 DROP EACH EYE ×2 (08:31→20:20)
[2023-05-07] MEDS: FERROUS SULFATE 324 MG TABLET PO ×2 (08:32→16:50)
[2023-05-07] MEDS: dilTIAZem HCL 30 MG TABLET 90 MG PO ×3 (08:33→16:49)
[2023-05-07] MEDS: BENZONATATE 100 MG CAPSULE 200 MG PO ×3 (08:33→16:49)
[2023-05-07] MEDS: POTASSIUM CHLORIDE 20 MEQ ER TABLET PO (08:33)
[2023-05-07] MEDS: DOCUSATE SODIUM 100 MG CAPSULE PO (08:33)
[2023-05-07 08:34] LABS: Basophils Percent Auto 0.5 % (0.2-1.2); Eosinophils Absolute Auto 0.4 K/mm3 (0-0.3); Eosinophils Percent Auto 4.3 % (0-4.4); Hematocrit 33.6 % (37.0-47.0); Hemoglobin 9.5 g/dL (12.0-15.0); Immature Granulocyte Absolute 0.04 K/mm3 (0.00-0.031); Immature Granulocyte Percent A 0.5 % (0-0.5); Lymphocytes Absolute Auto 0.35 K/mm3 (0.9-3.2); Mean Corpuscular HGB Conc 28.3 g/dl (32-36); Mean Corpuscular Hemoglobin 24.9 pg (26-34); Mean Platelet Volume 9.7 fl (7.4-10.4); Monocytes Absolute Auto 0.7 K/mm3 (0.1-0.6); Monocytes Percent Auto 8.1 % (2.6-8.5); Neutrophils Absolute Auto 7.3 K/mm3 (1.3-6.7); Neutrophils Percent Auto 82.6 % (45.5-73.1); Platelet Count Result 327 k/mm3 (150-375); Red Blood Count 3.82 M/mm3 (4.2-5.4); Red Cell Distribution Width 16.5 % (11.5-14.5); White Blood Count 8.8 K/mm3 (4.5-10.0)
[2023-05-07] MEDS: CHOLECALCIFEROL 1,000 UNITS TABLET 1000 UNITS PO ×2 (08:34→16:50)
[2023-05-07] MEDS: ASCORBIC ACID 500 MG TABLET PO (08:34)
[2023-05-07] MEDS: OPTI-GEN TAB 1 TABLET PO ×2 (08:35→16:51)
[2023-05-07] MEDS: CYANOCOBALAMIN 500 MCG TABLET PO (08:35)
[2023-05-07] MEDS: MAGNESIUM OXIDE 400 MG TABLET PO (08:36)
[2023-05-07] MEDS: FUROSEMIDE INJ 40 MG/4 ML VIAL IV PUSH ×2 (08:36→16:50)
[2023-05-07] MEDS: EMPAGLIFLOZIN 10 MG TABLET PO (08:36)
[2023-05-07 08:56] LABS: Alanine Aminotransferase 13 U/L (6-35); Albumin Level 3.8 g/dL (3.5-5.1); Alkaline Phosphatase 98 U/L (38-126); Anion Gap 7 mmol/L (8-16); Aspartate Amino Transferase 23 U/L (14-36); Bilirubin,Total 0.6 mg/dL (0.2-1.3); Blood Urea Nitrogen 28 mg/dL (7-17); Calcium 8.9 mg/dL (8.4-10.2); Carbon Dioxide 29 mmol/L (22-30); Chloride 98 mmol/L (98-107); Estimated CRCL calculation 22 ml/min; Estimated Glomerular Filt Rate 26; Glucose 97 mg/dL (65-110); Magnesium 2.4 mg/dL (1.6-2.3); Potassium 4.8 mmol/L (3.4-5.0); Sodium 134 mmol/L (137-145)
[2023-05-07 08:59] LABS: Anisocytosis 1+ (NORMAL); Hypochromasia 1+ (NORMAL); Ovalocytes 1+ (NORMAL); Platelet Estimate Adequate (Adequate); Schistocytes None Seen (NORMAL)
--- NOTE | 2023-05-07 09:59 | PM.PNCARD ---
Progress Note: A&P Assessment and Plan (1) Acute on chronic diastolic CHF (congestive heart failure): Code(s): I50.33 - Acute on chronic diastolic (congestive) heart failure Status: Acute Assessment and Plan: Patient has a history of diastolic CHF, with right heart failure, and was admitted with severe volume overload and acute exacerbation. She states this is the worst she has ever been. Probably aggravated by her anemia. Echo last week showed normal LV function and intact valve repairs. Her Bi V ICD has reached elective replacement interval; some pacer functions will turn off to preserve battery energy as well, leading to less than optimal, but adequate, functioning. Continue to diurese her to improve sx, and get her tuned up for her generator replacement scheduled for May [address] Frias. --continue furosemide 40 mg IV push b.i.d. --continue potassium supplement --Daily BMP --Added Jardiance 10 mg daily CHF and CKD, reviewed risks and benefits. (2) Right heart failure: Code(s): I50.810 - Right heart failure, unspecified Status: Acute Assessment and Plan: Due to chronic lung disease and left heart failure, continue diuretics, O2. (3) Biventricular ICD (implantable cardioverter-defibrillator) in place: Code(s): Z95.810 - Presence of automatic (implantable) cardiac defibrillator Status: Acute Assessment and Plan: Bi V ICD that has reached elective replacement interval. Functioning adequately. --Scheduled for generator change on May [address] Frias. (4) Anemia: Code(s): D64.9 - Anemia, unspecified Status: Acute Assessment and Plan: Significant anemia, microcytic, FOB positive, status post 2 units of packed cells. -- Xarelto has been discontinued -- apparently has a history of anemia and sees a waiter/waitress second class. (5) Paroxysmal atrial fibrillation: Code(s): I48.0 - Paroxysmal atrial fibrillation Status: Acute Assessment and Plan: History of PAF, currently AV paced. Xarelto held due to anemia. 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 Also has KAROLYN and compliant with CPAP the recently has trouble wearing it long due to her orthopnea. Right heart failure. followed by Dr. Cali in Pulmonary. (7) Chronic kidney disease, stage 4 (severe): Code(s): N18.4 - Chronic kidney disease, stage 4 (severe) Status: Acute Assessment and Plan: At baseline. -- Daily BMP Subjective Date/time seen: 05/07/23 09:59 Interval history: Follow-up for acute diastolic CHF, 27 lb weight gain over the last few weeks/months. The patient has a history of CHF and has been followed by Dr. Sharon Pressley at [facility].? She has had mitral and tricuspid valve repairs by Dr. Barclay last several years ago, history of atrial fibrillation, a Biotronik Bi V ICD upgrade in 2016 and diabetes.? She also has CKD stage 4 and interstitial lung disease due to lupus, on home O2.? Apparently has had anemia before in sees a waiter/waitress second class.? Hematocrit has been down to 7.9 in the past. S/P 2 units PRBCs. Echo last week: Normal ejection fraction, intact mitral valve repair, pulmonary hypertension with RVSP of 55, right ventricular volume overload Date of service 05/07/2023: Breathing better, edema persists. Diuresed 1 L yesterday, on O2 2 L. sister visiting. Review of Systems Review of Systems: No chest pain or abdominal pain, ongoing edema, had trouble with the BiPAP last night, no bleeding. Exam Const: General: cooperative and comfortable; No healthy appearing or confusion Orientation/consciousness: oriented to person, patient oriented x3 and No confusion Other: Obese, conversant HENMT: Mouth: Yes moist mucous membranes
--- NOTE | 2023-05-07 16:18 | PM.PNPUL ---
Progress Note: A&P Assessment and Plan (1) Chronic interstitial lung disease: Code(s): J84.9 - Interstitial pulmonary disease, unspecified Status: Acute Assessment and Plan: Patient has a history of lupus and also interstitial lung disease with? ground-glass airspace disease with some basilar interlobular septal thickening from 01/28/2021 with no change from September 15, 2020 but some mild progression from 09/26/2019 and a moderate restrictive abnormality on her PFTs.? ? CT scan 01/13/2022 demonstrated stable right upper lobe nodules and stable scattered mild ground-glass infiltrates compared to 01/28/21.? PFTs from 09/03/2021 showed a moderate restrictive ventilatory abnormality with a total lung capacity of 60% and no change from 08/06/20. Outpatient visit on 07/17/2022: She is clinically stable for the last 6 months on no? respiratory medicines and no medications for her lupus at this time.? She remains with dyspnea on exertion at 1/2 to 1 block at 5 L nasal cannula.? At this time patient is not interested in a referral to a interstitial lung disease clinic for consideration of an anti fibrotic agent.? Patient has a portable oxygen concentrator. outpatient visit on 12/17/2022: She is clinically stable for the last 6 months on no respiratory medicines and ? Has restarted rituximab in September 2022 and October 2022 for her lupus at this time.? She remains with dyspnea on exertion at 1/2 to 1 block at 5 L nasal cannula. ? she again tells me that she is not interested in a referral to a interstitial lung disease clinic for consideration of an anti fibrotic agent.? Patient had a portable oxygen concentrator? but had difficulties with the battery maintaining its charge and now prefers to use tanks. She is scheduled for her PFTs and CT scan on 01/13/2023. 01/16/23: Clinically the patient remains stable with PFTs demonstrating stable total lung capacity with improved FVC and FEV1 and a CT scan with worsening diffuse interstitial infiltrates and a new 8 mm right upper lobe nodule.? I will repeat a CT scan in 3 months. 04/21/2023: Saw Rheumatology, Dr Fong, stated she is doing fine, main concern was fluid, her main issue was back pain, referred to pain management, neck pain does not 1 spinal injections or neuro surgery. Add tizanidine does not want narcotics or to go to pain management. Once malignancy is ruled out we can decide on rituximab. 05/03/2023: The patient presents with fluid overload. CT scan of the chest shows pulmonary edema, small pleural effusions, decreased size of the right upper lobe nodule. she has no infectious complaints. She was treated with diuretics and did not require steroids or antibiotics. 05/04/23 patient tells me she continues to improve. She is breathing normal at rest. She states her swelling is better. She denies fever, chills, rigors or crackles. White blood cell count 9.4, creatinine 1.7. Cumulative diuresis since admission 1.6 L. currently she is on 6 L nasal cannula saturation 97% (home 5 L rest, ambulation and CPAP8 with 5 L bleed in). No evidence of interstitial lung disease exacerbation or pneumonia at this time. 05/05 Patient tells me she is breathing normal. She still has pedal edema. White blood cell count 10.2, creatinine 1.80, weight is 78 kilos, net diuresis from admission is -955 mL. Patient continues to improve with diuresis and no treatment for any interstitial lung disease related problems. Plan: The patient had previously not responded to bronchodilators as an outpatient is not sure the nebulization of albuterol and ipratropium were helping her now. I will discontinue the standing orders and leave a p.r.n. albuterol nebulizer order. 05/06 Currently the patient is on 5 L nasal cannula saturation 95%. The patient states she is breathing well at rest and her leg edema is improved. White blood cell count 8.5, Plan: breathing is unchanged off of the nebulizers will continue wit
--- NOTE | 2023-05-07 17:07 | PM.IMPN ---
Progress Note: A&P Assessment and Plan (1) Acute on chronic congestive heart failure: Code(s): I50.9 - Heart failure, unspecified Status: Acute Assessment and Plan: Patient remains very edematous but better overall. Echo report on chart from 04/2023 other facility, indeterminate diastolic function with EF 70%, cor pulmonale. Probably acute on chronic diastolic CHF with right sided failure as well. I/O: -5995 Continue Empagliflozin. Continue IV Lasix. Strict I's/O's, daily standing weights Cardio consulted and appreciate their input. (2) Hypokalemia: Code(s): E87.6 - Hypokalemia Status: Acute Assessment and Plan: Potassium replaced and now potassium 4.8. Continue oral potassium. Monitor and adjust as necessary (3) Insulin dependent type 2 diabetes mellitus: Code(s): E11.9 - Type 2 diabetes mellitus without complications; Z79.4 - terminal operations supervisor (current) use of insulin Status: Acute Assessment and Plan: The patient's blood glucose was reviewed on 05/07 Glucose remains well controlled. Continue AccuCheks covering with sliding scale. Hypoglycemia protocol available as needed. Continue to monitor (4) Chronic kidney disease, stage 4 (severe): Code(s): N18.4 - Chronic kidney disease, stage 4 (severe) Status: Acute Assessment and Plan: Cr baseline 1.6-1.9. Cr 1.9 and stable. She is tolerating diuresis. Monitor creatinine closely. (5) Chronic respiratory failure with hypoxia, on home oxygen therapy: Code(s): J96.11 - Chronic respiratory failure with hypoxia; Z99.81 - Dependence on supplemental oxygen Status: Acute Assessment and Plan: She has been stable on her baseline 5L O2 NC. She was having hypoxia at night so AVAPS ordered which she wore last night. Apnea link last night showing no hypoxia. Appreciate pulmonology input. Continue AVAPS at night (6) Chronic interstitial lung disease: Code(s): J84.9 - Interstitial pulmonary disease, unspecified Status: Acute Assessment and Plan: Appreciate pulmonology consult, patient apparently refusing further treatment for her ILD. (7) Chronic anemia: Code(s): D64.9 - Anemia, unspecified Status: Acute Assessment and Plan: Hgb 7.3 on admission and dropped to 6.6. She has chronic anemia requiring transfusions in the past. Stool occult blood positive. GI consulted and appreciate their input. Patient has had EGD in May 2022 showing reflux esophagitis and gastritis with bleeding; Colonoscopy May 2022 showing diverticulosis and internal hemorrhoids. Anemia could be multifactorial from CKD, SLE, anticoagulation. Xarelto on hold. She is on PPI. Transfused 2U on 05/04. Hgb 8-9 range since. Follow. (8) Hypothyroidism: Qualifiers: Hypothyroidism type: unspecified Qualified Code(s): E03.9 - Hypothyroidism, unspecified Code(s): E03.9 - Hypothyroidism, unspecified Status: Acute Assessment and Plan: TSH 6.3. Continue levothyroxine (9) Obstructive sleep apnea on CPAP: Code(s): G47.33 - Obstructive sleep apnea (adult) (pediatric); Z99.89 - Dependence on other enabling machines and devices Status: Acute Assessment and Plan: As above. (10) Paroxysmal atrial fibrillation: Code(s): I48.0 - Paroxysmal atrial fibrillation Status: Acute Assessment and Plan: Rate controlled. Continue diltiazem. Anticoagulation on hold due to acute anemia. Monitor on tele Plan Lupus-stable DVT prophylaxis with SCDs, hold Xarelto GI prophylaxis not indicated Code status full code Subjective Date/time seen: 05/07/23 17:07 Interval history: 78yo female with CHF, DM, CKD and chronic respiratory failure here for shortness of breath. Worked with PT and walked out into the halls. Wore the mask last night but it fot poorly. No CP. Can not tolerate Miguel hose. Exam Narrative: AF 98.0
[2023-05-07 17:16] LABS: Glucose Point of Care 128 mg/dl (65-105)
[2023-05-07] MEDS: PRAVASTATIN SODIUM 20 MG TABLET 40 MG PO (20:19)
[2023-05-07 20:20] LABS: Glucose Point of Care 164 mg/dl (65-105)
[2023-05-07] MEDS: LATANOPROST 0.005% OP SOLN 2.5 ML BTL 1 DROP EACH EYE (20:20)
[2023-05-08] VITALS (23 sets, daily range): BP systolic 114–120; BP diastolic 32–50; PULSE 78–85; RESP 16–20; TEMP 36.1–36.6; O2SAT 86–100
[2023-05-08] MEDS: LEVOTHYROXINE SODIUM 50 MCG TABLET PO (05:19)
[2023-05-08] MEDS: guaiFENesin/DEXTROMETHORPHAN 10 ML UDC 5 ML PO (05:20)
[2023-05-08 05:39] LABS: Basophils Percent Auto 0.4 % (0.2-1.2); Eosinophils Absolute Auto 0.4 K/mm3 (0-0.3); Eosinophils Percent Auto 4.3 % (0-4.4); Hematocrit 32.6 % (37.0-47.0); Immature Granulocyte Absolute 0.03 K/mm3 (0.00-0.031); Immature Granulocyte Percent A 0.4 % (0-0.5); Lymphocytes Absolute Auto 0.36 K/mm3 (0.9-3.2); Lymphocytes Percent Auto 4.5 % (18.3-44.2); Mean Corpuscular HGB Conc 27.6 g/dl (32-36); Mean Corpuscular Hemoglobin 24.1 pg (26-34); Mean Corpuscular Volume 87.2 fl (80-100); Mean Platelet Volume 9.8 fl (7.4-10.4); Monocytes Absolute Auto 0.7 K/mm3 (0.1-0.6); Monocytes Percent Auto 9.2 % (2.6-8.5); Neutrophils Absolute Auto 6.5 K/mm3 (1.3-6.7); Neutrophils Percent Auto 81.2 % (45.5-73.1); Platelet Count Result 304 k/mm3 (150-375); Red Blood Count 3.74 M/mm3 (4.2-5.4); Red Cell Distribution Width 16.6 % (11.5-14.5); White Blood Count 8.1 K/mm3 (4.5-10.0)
[2023-05-08 05:48] LABS: Alanine Aminotransferase 12 U/L (6-35); Albumin Level 3.6 g/dL (3.5-5.1); Alkaline Phosphatase 87 U/L (38-126); Anion Gap 4 mmol/L (8-16); Aspartate Amino Transferase 23 U/L (14-36); Bilirubin,Total 0.6 mg/dL (0.2-1.3); Blood Urea Nitrogen 29 mg/dL (7-17); Calcium 8.8 mg/dL (8.4-10.2); Carbon Dioxide 32 mmol/L (22-30); Chloride 98 mmol/L (98-107); Estimated CRCL calculation 22 ml/min; Estimated Glomerular Filt Rate 26; Glucose 98 mg/dL (65-110); Potassium 4.6 mmol/L (3.4-5.0); Sodium 134 mmol/L (137-145)
[2023-05-08 06:13] LABS: Platelet Estimate Adequate (Adequate)
[2023-05-08 06:14] LABS: Anisocytosis 1+ (NORMAL); Hypochromasia 1+ (NORMAL); Schistocytes None Seen (NORMAL)
--- NOTE | 2023-05-08 08:35 | PCRCNOTE ---
Home [facility] being arranged with [facility].
[2023-05-08 08:41] LABS: Glucose Point of Care 109 mg/dl (65-105)
--- NOTE | 2023-05-08 09:38 | PM.PNCARD ---
Progress Note: A&P Assessment and Plan (1) Biventricular ICD (implantable cardioverter-defibrillator) in place: Code(s): Z95.810 - Presence of automatic (implantable) cardiac defibrillator Status: Acute (2) Acute on chronic diastolic CHF (congestive heart failure): Code(s): I50.33 - Acute on chronic diastolic (congestive) heart failure Status: Acute Plan 78-year-old lady with: CHF/volume overload responding to intravenous furosemide. This will continue for another 24-48 hours at least. Hopefully when her state of volume overload is optimize she can be discharged and proceed with follow-up/care with her established Cardiology group and make her appointment for her generator change which is scheduled for 6 days from now Felipe Luis MD [facility] Subjective Date/time seen: Date of service: 05/08/23 09:38 Interval history: Follow-up visit in this 78-year-old lady with: CHF/mild to moderate volume overload being treated with intravenous furosemide. Patient has a history of LV dysfunction and receives her cardiovascular care elsewhere. She as stated in my partner's note has a chronically implanted by the ICD which is at [facility] with scheduled generator change procedure at the end of this month Exam Const: General: cooperative and comfortable; No healthy appearing or confusion Orientation/consciousness: oriented to person, patient oriented x3 and No confusion Other: Obese, conversant HENMT: Mouth: Yes moist mucous membranes Eyes: General: appearance normal, both eyes and all related structures Neck: Neck: supple and no JVD (obese neck, difficult to eval for JVD) Resp: Effort & Inspection: normal respiratory effort Auscultation: rales Other: Patient continues with bibasilar rales (seemingly improved) Cardio: Rate: regular rate Rhythm: regular rhythm Heart sounds: Murmur heart sound present (1/6 KATHERIN left lower sternal border) Other: 2/6 KATHERIN LLSB and apex GI: Inspection: abnormal to inspection and distended Other: Probable ascites Skin: General skin exam: normal color and no rashes or lesions noted Neuro: General: oriented to person, patient oriented x3 and No confusion Extrem: Right lower extremity: edema Left lower extremity: edema Other: Severe lower extremity edema to the thighs, buttocks, lower abdomen, tight Psych: Appearance: grossly normal Mental Status: mental status grossly normal Objective Data Vital Signs Vital Signs: Vital Signs - 24 hr 05/07/23 10:00 05/07/23 12:00 05/07/23 12:00 Temperature 36.6 C Pulse Rate 80 80 80 Respiratory Rate 16 Blood Pressure 113/56 L Pulse Oximetry 92 Oxygen Delivery Oxygen Flow Rate Fraction of Inspired Oxygen 05/07/23 12:00 05/07/23 14:00 05/07/23 16:00 Temperature 36.5 C Pulse Rate 80 80 80 Respiratory Rate 16 16 Blood Pressure 113/50 L Pulse Oximetry 94 92 Oxygen Delivery Nasal Cannula Oxygen Flow Rate 4 Fraction of Inspired Oxygen 05/07/23 16:00 05/07/23 16:00 05/07/23 18:00 Temperature Pulse Rate 80 80 80 Respiratory Rate 16 Blood Pressure Pulse Oximetry 92 Oxygen Delivery Nasal Cannula Oxygen Flow Rate 4 Fraction of Inspired Oxygen 05/07/23 20:00 05/07/23 20:00 05/07/23 20:00 Temperature 36.3 C L Pulse Rate 80 81 80 Respiratory Rate 16 16 Blood Pressure 115/56 L Pulse Oximetry 92 91 Oxygen Delivery Nasal Cannula Oxygen Flow Rate 5 Fraction of Inspired Oxygen 05/07/23 21:59 05/07/23 22:25 05/07/23 23:41 Temperature Pulse Rate 80 80 Respiratory Rate 16 Blood Pressure Pulse Oximetry 99 99 Oxygen Delivery BiPAP BiPAP Oxygen Flow Rate Fraction of Inspired Oxygen 40 05/07/23 23:55 05/08/23 00:00 05/08/23 00:00 Temperature 36.4 C Pulse Rate 82 82 80 Respiratory Rate 18 18 Blood Pressure 122/45 L Pulse Oximetry 96 98 Oxygen Delivery BiPAP Oxygen Flow Rate Fraction o
[2023-05-08] MEDS: ASCORBIC ACID 500 MG TABLET PO (09:57)
[2023-05-08] MEDS: dilTIAZem HCL 30 MG TABLET 90 MG PO ×3 (09:57→16:51)
[2023-05-08] MEDS: BENZONATATE 100 MG CAPSULE 200 MG PO ×3 (09:57→16:51)
[2023-05-08] MEDS: CHOLECALCIFEROL 1,000 UNITS TABLET 1000 UNITS PO ×2 (09:57→16:52)
[2023-05-08] MEDS: DOCUSATE SODIUM 100 MG CAPSULE PO ×2 (09:58→20:32)
[2023-05-08] MEDS: POTASSIUM CHLORIDE 20 MEQ ER TABLET PO (09:58)
[2023-05-08] MEDS: FERROUS SULFATE 324 MG TABLET PO ×2 (09:58→16:51)
[2023-05-08] MEDS: CYANOCOBALAMIN 500 MCG TABLET PO (09:58)
[2023-05-08] MEDS: EMPAGLIFLOZIN 10 MG TABLET PO (09:58)
[2023-05-08] MEDS: OPTI-GEN TAB 1 TABLET PO ×2 (09:59→16:52)
[2023-05-08] MEDS: PANTOPRAZOLE SODIUM IV 40 MG VIAL IV PUSH ×2 (09:59→20:30)
[2023-05-08] MEDS: DORZOLAMIDE HCL 2% OPHTH DROPS 1 DROP EACH EYE ×2 (09:59→20:26)
[2023-05-08] MEDS: MAGNESIUM OXIDE 400 MG TABLET PO (09:59)
[2023-05-08] MEDS: calcitrioL 0.25 MCG CAPSULE PO (09:59)
[2023-05-08] MEDS: BRIMONIDINE TARTRATE 0.2% OP SOLN 5 ML BTL 1 DROP EACH EYE ×2 (09:59→20:26)
[2023-05-08] MEDS: FUROSEMIDE INJ 40 MG/4 ML VIAL IV PUSH ×2 (09:59→16:52)
--- NOTE | 2023-05-08 10:37 | HOMEO2EVAL ---
Evaluation was performed at [facility] Home Oxygen Evaluation RC: Home Oxygen (O2) Evaluation Start: 05/08/23 09:30 Freq: ONCE Status: Active Protocol: RPE Activity Type Activity Date Activity User E-sign Co-sign Detail Recorded Client Recorded Date Recorded By Document 05/08/23 09:45 [email or web address] 05/08/23 10:37 PKH Document 05/08/23 09:50 [email or web address] 05/08/23 10:37 PKH Document 05/08/23 09:55 [email or web address] [email or web address] 05/08/23 10:37 PKH Document 05/08/23 10:05 [email or web address] 05/08/23 10:37 PKH Document 05/08/23 10:05 [email or web address] 05/08/23 10:37 PKH Document 05/08/23 10:10 [email or web address] 05/08/23 10:37 PKH Document 05/08/23 10:20 [email or web address] 05/08/23 10:37 PKH Document 05/08/23 10:35 [email or web address] [email or web address] 05/08/23 10:37 PKH 05/08/23 05/08/23 05/08/23 09:45 09:50 09:55 Home O2 Evaluation [Oxygen] -Test Phase Resting Resting Resting -Oxygen Delivery Room Air Nasal Cannula Nasal Cannula -Oxygen Flow Rate (L/min) 1 2 [Pulse Oximetry] -Pulse Oximetry (90-100 %) 86 L 87 L 90 [Pulse Rate] -Pulse Rate (60-100 beats/min) 79 78 80 [Charges] -Treatment Charges O2 Evaluation - Inpatient 05/08/23 05/08/23 05/08/23 10:05 10:05 10:10 Home O2 Evaluation [Oxygen] -Test Phase Exercise Exercise Exercise -Oxygen Delivery Nasal Cannula Nasal Cannula Nasal Cannula -Oxygen Flow Rate (L/min) 2 3 4 [Pulse Oximetry] -Pulse Oximetry (90-100 %) 86 L 86 L 87 L [Pulse Rate] -Pulse Rate (60-100 beats/min) 80 80 79 [Charges] -Treatment Charges 05/08/23 05/08/23 10:20 10:35 Home O2 Evaluation [Oxygen] -Test Phase Exercise Resting -Oxygen Delivery Nasal Cannula Nasal Cannula -Oxygen Flow Rate (L/min) 6 2 [Pulse Oximetry] -Pulse Oximetry (90-100 %) 90 90 [Pulse Rate] -Pulse Rate (60-100 beats/min) 85 80 [Charges] -Treatment Charges
--- NOTE | 2023-05-08 10:39 | PCRCNOTE ---
HOME O2 EVAL COMPLETE. PATIENT REQUIRES 2LPM WITH REST AND 6LPM WITH ACTIVITY. RN NOTIFIED. PATIENT HAS HOME O2 WITH [facility] [phone]
[2023-05-08 12:10] LABS: Glucose Point of Care 125 mg/dl (65-105)
--- NOTE | 2023-05-08 12:58 | PM.IMPN ---
Progress Note: A&P Assessment and Plan (1) Acute on chronic congestive heart failure: Code(s): I50.9 - Heart failure, unspecified Status: Acute Assessment and Plan: Patient remains very edematous but better overall. Echo report on chart from 04/2023 other facility, indeterminate diastolic function with EF 70%, cor pulmonale. Probably acute on chronic diastolic CHF with right sided failure as well. I/O: -3885 Continue Empagliflozin. Continue IV Lasix. Strict I's/O's, daily standing weights Cardio consulted and appreciate their input. Metolazone once (2) Hypokalemia: Code(s): E87.6 - Hypokalemia Status: Acute Assessment and Plan: Potassium replaced and now potassium 4.6. Continue oral potassium. 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 Continue AccuCheks covering with sliding scale. Hypoglycemia protocol available as needed. Continue to monitor (4) Chronic kidney disease, stage 4 (severe): Code(s): N18.4 - Chronic kidney disease, stage 4 (severe) Status: Acute Assessment and Plan: Cr baseline 1.6-1.9. Cr 1.9 and stable. She is tolerating diuresis. Monitor creatinine closely. (5) Chronic respiratory failure with hypoxia, on home oxygen therapy: Code(s): J96.11 - Chronic respiratory failure with hypoxia; Z99.81 - Dependence on supplemental oxygen Status: Acute Assessment and Plan: She has been stable on her baseline 5L O2 NC. She was having hypoxia at night so AVAPS ordered which she is wearing at night. Apnea link on AVAPS showing no hypoxia. Appreciate pulmonology input. Continue AVAPS at night with plan for this at discharge. If unable to arrange for AVAPS right away, then patient can continue to use her home unit until AVAPS is available. Home O2 evaluation close to discharge. Follow up with Pulmonary in 3-4 weeks in the clinic. (6) Chronic interstitial lung disease: Code(s): J84.9 - Interstitial pulmonary disease, unspecified Status: Acute Assessment and Plan: Appreciate pulmonology consult, patient apparently refusing further treatment for her ILD. (7) Chronic anemia: Code(s): D64.9 - Anemia, unspecified Status: Acute Assessment and Plan: Hgb 7.3 on admission and dropped to 6.6. She has chronic anemia requiring transfusions in the past. Stool occult blood positive. GI consulted and appreciate their input. -EGD in May 2022 showing reflux esophagitis and gastritis with bleeding -Colonoscopy May 2022 showing diverticulosis and internal hemorrhoids. Anemia could be multifactorial from CKD, SLE, anticoagulation. Xarelto was on hold. She is on PPI. Transfused 2U on 05/04. Hgb 8-9 range since. Follow. Resume Xarelto today. (8) Hypothyroidism: Qualifiers: Hypothyroidism type: unspecified Qualified Code(s): E03.9 - Hypothyroidism, unspecified Code(s): E03.9 - Hypothyroidism, unspecified Status: Acute Assessment and Plan: TSH 6.3. Continue levothyroxine (9) Obstructive sleep apnea on CPAP: Code(s): G47.33 - Obstructive sleep apnea (adult) (pediatric); Z99.89 - Dependence on other enabling machines and devices Status: Acute Assessment and Plan: As above. (10) Paroxysmal atrial fibrillation: Code(s): I48.0 - Paroxysmal atrial fibrillation Status: Acute Assessment and Plan: Rate controlled. Continue diltiazem. Anticoagulation was on hold due to acute anemia. Monitor on tele. Xarelto resumed Plan Lupus-stable DVT prophylaxis with SCDs, hold Xarelto GI prophylaxis not indicated Code status full code Subjective Date/time seen:
[2023-05-08] MEDS: metOLazone 2.5 MG TABLET PO (14:23)
--- NOTE | 2023-05-08 15:42 | PCRCNOTE ---
[facility] arrangements will now be made with Luis E.
[2023-05-08] MEDS: RIVAROXABAN 15 MG TABLET PO (16:50)
[2023-05-08 17:02] LABS: Glucose Point of Care 137 mg/dl (65-105)
[2023-05-08] MEDS: PRAVASTATIN SODIUM 20 MG TABLET 40 MG PO (20:32)
[2023-05-08 20:43] LABS: Glucose Point of Care 137 mg/dl (65-105)
[2023-05-09] VITALS (9 sets, daily range): BP systolic 106–130; BP diastolic 44–48; PULSE 69–89; RESP 18–22; TEMP 36.2–36.5; O2SAT 91–100
[2023-05-09 05:01] LABS: Basophils Percent Auto 0.6 % (0.2-1.2); Eosinophils Absolute Auto 0.3 K/mm3 (0-0.3); Eosinophils Percent Auto 5.1 % (0-4.4); Hematocrit 31.4 % (37.0-47.0); Hemoglobin 8.8 g/dL (12.0-15.0); Immature Granulocyte Absolute 0.01 K/mm3 (0.00-0.031); Immature Granulocyte Percent A 0.1 % (0-0.5); Lymphocytes Absolute Auto 0.31 K/mm3 (0.9-3.2); Lymphocytes Percent Auto 4.6 % (18.3-44.2); Mean Corpuscular Hemoglobin 24.4 pg (26-34); Monocytes Absolute Auto 0.6 K/mm3 (0.1-0.6); Monocytes Percent Auto 9.6 % (2.6-8.5); Neutrophils Absolute Auto 5.4 K/mm3 (1.3-6.7); Platelet Count Result 275 k/mm3 (150-375); Red Blood Count 3.61 M/mm3 (4.2-5.4); Red Cell Distribution Width 16.8 % (11.5-14.5); White Blood Count 6.7 K/mm3 (4.5-10.0)
[2023-05-09 05:37] LABS: Alanine Aminotransferase 11 U/L (6-35); Albumin Level 3.1 g/dL (3.5-5.1); Alkaline Phosphatase 65 U/L (38-126); Anion Gap 4 mmol/L (8-16); Aspartate Amino Transferase 31 U/L (14-36); Bilirubin,Total 0.7 mg/dL (0.2-1.3); Blood Urea Nitrogen 33 mg/dL (7-17); Calcium 8.6 mg/dL (8.4-10.2); Carbon Dioxide 30 mmol/L (22-30); Chloride 99 mmol/L (98-107); Estimated CRCL calculation 23 ml/min; Estimated Glomerular Filt Rate 27; Glucose 90 mg/dL (65-110); Potassium 4.7 mmol/L (3.4-5.0); Sodium 133 mmol/L (137-145)
[2023-05-09] MEDS: LEVOTHYROXINE SODIUM 100 MCG TABLET PO (05:58)
[2023-05-09 07:37] LABS: Platelet Estimate Adequate (Adequate); Poikilocytosis 1+ (NORMAL); Schistocytes None Seen (NORMAL)
[2023-05-09 08:38] LABS: Glucose Point of Care 98 mg/dl (65-105)
[2023-05-09] MEDS: POTASSIUM CHLORIDE 20 MEQ ER TABLET PO (09:04)
[2023-05-09] MEDS: BENZONATATE 100 MG CAPSULE 200 MG PO (09:05)
[2023-05-09] MEDS: FERROUS SULFATE 324 MG TABLET PO (09:05)
[2023-05-09] MEDS: CYANOCOBALAMIN 500 MCG TABLET PO (09:06)
[2023-05-09] MEDS: OPTI-GEN TAB 1 TABLET PO (09:07)
[2023-05-09] MEDS: dilTIAZem HCL 30 MG TABLET 90 MG PO (09:07)
[2023-05-09] MEDS: DOCUSATE SODIUM 100 MG CAPSULE PO (09:07)
[2023-05-09] MEDS: FUROSEMIDE INJ 40 MG/4 ML VIAL IV PUSH (09:08)
[2023-05-09] MEDS: MAGNESIUM OXIDE 400 MG TABLET PO (09:08)
[2023-05-09] MEDS: EMPAGLIFLOZIN 10 MG TABLET PO (09:08)
[2023-05-09] MEDS: BRIMONIDINE TARTRATE 0.2% OP SOLN 5 ML BTL 1 DROP EACH EYE (09:09)
[2023-05-09] MEDS: ASCORBIC ACID 500 MG TABLET PO (09:09)
[2023-05-09] MEDS: DORZOLAMIDE HCL 2% OPHTH DROPS 1 DROP EACH EYE (09:09)
[2023-05-09] MEDS: CHOLECALCIFEROL 1,000 UNITS TABLET 1000 UNITS PO (09:11)
[2023-05-09] MEDS: PANTOPRAZOLE SODIUM IV 40 MG VIAL IV PUSH (09:11)
--- NOTE | 2023-05-09 11:21 | PM.IMPN ---
Progress Note: A&P Assessment and Plan (1) Acute on chronic congestive heart failure: Code(s): I50.9 - Heart failure, unspecified Status: Acute Assessment and Plan: Patient remains very edematous but better overall. Echo report on chart from 04/2023 other facility, indeterminate diastolic function with EF 70%, cor pulmonale. Probably acute on chronic diastolic CHF with right sided failure as well. I/O: -5490 Continue Empagliflozin. Continue IV Lasix. Strict I's/O's, daily standing weights Cardio consulted and appreciate their input. (2) Hypokalemia: Code(s): E87.6 - Hypokalemia Status: Acute Assessment and Plan: Potassium replaced and now potassium 4.7. Continue oral potassium. Monitor and adjust as necessary (3) Insulin dependent type 2 diabetes mellitus: Code(s): E11.9 - Type 2 diabetes mellitus without complications; Z79.4 - halfway (current) use of insulin Status: Acute Assessment and Plan: The patient's blood glucose was reviewed on 05/09 Glucose remains well controlled. Continue AccuCheks covering with sliding scale. Hypoglycemia protocol available as needed. Continue to monitor (4) Chronic kidney disease, stage 4 (severe): Code(s): N18.4 - Chronic kidney disease, stage 4 (severe) Status: Acute Assessment and Plan: Cr baseline 1.6-1.9. Cr 1.8 and stable. She is tolerating diuresis. Monitor creatinine closely. (5) Chronic respiratory failure with hypoxia, on home oxygen therapy: Code(s): J96.11 - Chronic respiratory failure with hypoxia; Z99.81 - Dependence on supplemental oxygen Status: Acute Assessment and Plan: She has been stable on her baseline 5L O2 NC. She was having hypoxia at night so AVAPS ordered which she is wearing at night. Apnea link on AVAPS showing no hypoxia. Appreciate pulmonology input. Continue AVAPS at night with plan for this at discharge. Home O2 evaluation showing 2 L at rest and 6 L with activity.? [employer] is her oxygen DME company and the patient will contact [facility] once she is discharged so they can bring her a high-flow concentrator to her house. [employer] to be here today in hospital to set up AVAPS. (6) Chronic interstitial lung disease: Code(s): J84.9 - Interstitial pulmonary disease, unspecified Status: Acute Assessment and Plan: Appreciate pulmonology consult, patient apparently refusing further treatment for her ILD. (7) Chronic anemia: Code(s): D64.9 - Anemia, unspecified Status: Acute Assessment and Plan: Hgb 7.3 on admission and dropped to 6.6. She has chronic anemia requiring transfusions in the past. Stool occult blood positive. GI consulted and appreciate their input. -EGD in May 2022 showing reflux esophagitis and gastritis with bleeding -Colonoscopy May 2022 showing diverticulosis and internal hemorrhoids. Anemia could be multifactorial from CKD, SLE, anticoagulation. Xarelto on hold for her generator replacement scheduled for May [address] Frias. She is on PPI. Transfused 2U on 05/04. Hgb 8-9 range since. Follow. (8) Hypothyroidism: Qualifiers: Hypothyroidism type: unspecified Qualified Code(s): E03.9 - Hypothyroidism, unspecified Code(s): E03.9 - Hypothyroidism, unspecified Status: Acute Assessment and Plan: TSH 6.3. Continue levothyroxine (9) Obstructive sleep apnea on CPAP: Code(s): G47.33 - Obstructive sleep apnea (adult) (pediatric); Z99.89 - Dependence on other enabling machines and devices Status: Acute Assessment and Plan: As above. (10) Paroxysmal atrial fibrillation: Code(s): I48.0 - Paroxysmal atrial fibrillation Status: Acute Assessment and Plan: Rate controlled. Continue diltiazem. Anticoagulation was on hold due to acute anemia and for generator change. Monitor on tele. (11) Biventricular ICD (implantable cardiover
[2023-05-09 11:55] LABS: Glucose Point of Care 109 mg/dl (65-105)
--- NOTE | 2023-05-09 12:27 | PM.DS ---
DS: Admitting Diagnosis Discharge Date 05/09/23 Admitting Diagnosis Shortness of breath DS: Discharge Diagnosis Discharge Diagnosis (1) Acute on chronic congestive heart failure: Code(s): I50.9 - Heart failure, unspecified Status: Acute (2) Hypokalemia: Code(s): E87.6 - Hypokalemia Status: Acute (3) Insulin dependent type 2 diabetes mellitus: Code(s): E11.9 - Type 2 diabetes mellitus without complications; Z79.4 - residential (current) use of insulin Status: Acute (4) Chronic kidney disease, stage 4 (severe): Code(s): N18.4 - Chronic kidney disease, stage 4 (severe) Status: Acute (5) Chronic respiratory failure with hypoxia, on home oxygen therapy: Code(s): J96.11 - Chronic respiratory failure with hypoxia; Z99.81 - Dependence on supplemental oxygen Status: Acute (6) Chronic interstitial lung disease: Code(s): J84.9 - Interstitial pulmonary disease, unspecified Status: Acute (7) Chronic anemia: Code(s): D64.9 - Anemia, unspecified Status: Acute (8) Hypothyroidism: Qualifiers: Hypothyroidism type: unspecified Qualified Code(s): E03.9 - Hypothyroidism, unspecified Code(s): E03.9 - Hypothyroidism, unspecified Status: Acute (9) Obstructive sleep apnea on CPAP: Code(s): G47.33 - Obstructive sleep apnea (adult) (pediatric); Z99.89 - Dependence on other enabling machines and devices Status: Acute (10) Paroxysmal atrial fibrillation: Code(s): I48.0 - Paroxysmal atrial fibrillation Status: Acute (11) Biventricular ICD (implantable cardioverter-defibrillator) in place: Code(s): Z95.810 - Presence of automatic (implantable) cardiac defibrillator Status: Acute DS: Summary Hospital Course Reason for hospitalization: 78yo female with CHF, DM, CKD and chronic respiratory failure here for shortness of breath. Please see H&P for details. Hospital Course: Patient presents with SOB and found to have acute on chronic diastolic CHF with right sided failure. She was very edematous. Echo report on chart from 04/2023 from another facility: indeterminate diastolic function with EF 70%, cor pulmonale. She was started on IV Lasix. She have negative fluid balance. Empagliflozin added. Cardiology consulted and appreciate their input.?The patient's blood glucose was monitored closely with AccuCheks covering with sliding scale.? Hypoglycemia protocol was available as needed.? We held her 70/30. Her last A1c 4.6. Patient has chronic kidney disease, stage 4 with Cr baseline 1.6-1.9. Cr here was about 1.8 and remained stable with diuresis. She also has ILD with chronic respiratory failure with hypoxia. She remained stable on her baseline O2 NC. She was having hypoxia at night so AVAPS ordered which she is wearing at night. Apnea link on AVAPS showing no hypoxia. Appreciate pulmonology input. Continue AVAPS at night with plan for this at discharge. Home O2 evaluation showing 2 L at rest and 6 L with activity.? [employer] is her oxygen DME company and the patient will contact [employer] once she is discharged so they can bring her a high-flow concentrator to her house. [employer] to be here today at the hospital to set up AVAPS. Patient with chronic anemia. Hgb 7.3 on admission and dropped to 6.6. Transfused 2U on 05/04. Hgb 8-9 range since. She has chronic anemia requiring transfusions in the past. Stool occult blood positive. GI consulted and appreciate their input. EGD in May 2022 showing reflux esophagitis and gastritis with bleeding. Colonoscopy May 2022 showing diverticulosis and internal hemorrhoids. Anemia could be multifactorial from CKD, SLE, anticoagulation. Xarelto was held for the anemia and also for her generator replacement scheduled for May [address] Frias.? She is on PPI. She had clinical improvement. She was able to be discharged home on 05/09/23. Status at Discharge Cognitive/behavioral status
--- NOTE | 2023-05-09 13:32 | PC.NURSE ---
Spoke with Everardo from [facility]- Patient must be discharged home first then they will come out today to set up machine and fit her with the correct mask.
[2023-05-13 07:48] LABS: Reference Lab Test Name HGB A1C; Reference Lab Test Result 4.6
== END 2023-05-09 13:05 | disposition home or self-care (01) | DRG 291 ==
LOC: ANHED 09:28 → ANHIMU 13:05
PROVIDERS: Internal Medicine Pulmonary Disease; Physician Assistant; Student in an Organized Health Care Education/Training Program; Admitting Provider Chiropractor; Emergency Provider Physician Assistant; PCP Internal Medicine; Visit Provider Internal Medicine
DX: I13.0 Hypertensive heart and chronic kidney disease with heart failure and stage 1 through stage 4 chronic kidney disease, or unspecified chronic kidney disease (principal); I50.33 Acute on chronic diastolic (congestive) heart failure; J96.21 Acute and chronic respiratory failure with hypoxia; N18.4 Chronic kidney disease, stage 4 (severe); J84.9 Interstitial pulmonary disease, unspecified; M32.9 Systemic lupus erythematosus, unspecified; G47.33 Obstructive sleep apnea (adult) (pediatric); I25.10 Atherosclerotic heart disease of native coronary artery without angina pectoris; I48.0 Paroxysmal atrial fibrillation; E11.22 Type 2 diabetes mellitus with diabetic chronic kidney disease; N18.9 Chronic kidney disease, unspecified; K57.90 Diverticulosis of intestine, part unspecified, without perforation or abscess without bleeding; E78.5 Hyperlipidemia, unspecified; E03.9 Hypothyroidism, unspecified; E87.6 Hypokalemia; M19.90 Unspecified osteoarthritis, unspecified site; Z20.822 Contact with and (suspected) exposure to COVID-19; M81.0 Age-related osteoporosis without current pathological fracture; D63.8 Anemia in other chronic diseases classified elsewhere; D63.1 Anemia in chronic kidney disease; H40.9 Unspecified glaucoma; Z95.5 Presence of coronary angioplasty implant and graft; Z79.01 Long term (current) use of anticoagulants; Z99.81 Dependence on supplemental oxygen; Z95.810 Presence of automatic (implantable) cardiac defibrillator; Z90.710 Acquired absence of both cervix and uterus; Z79.4 Long term (current) use of insulin
CPT/HCPCS: 36415; 36430; 36600; 71045; 71046; 80048; 80053; 81001; 82274; 82607; 82728; 82746; 82805; 82948; 83036; 83540; 83550; 83735; 83880; 84439; 84443; 84480; 84484; 85014; 85018; 85025; 85027; 85046; 85610; 85730; 86850; 86900; 86901; 86923; 87636; 93005; 93970; 94002; 94003; 94618; 94640; 96374; 96375; 97110; 97116; 97161; 97165; 97530; 97535; 99285; A9270; C9113; G0378; J1815; J1940; J7050; P9016

== ENCOUNTER 2023-05-13 11:25 | Outpatient (CLI) | payer MEDICARE, OTHER, SELFPAY ==
[2023-05-13 14:12] LABS: Albumin Level 3.8 g/dL (3.5-5.1); Anion Gap 4 mmol/L (8-16); Blood Urea Nitrogen 27 mg/dL (7-17); Calcium 8.9 mg/dL (8.4-10.2); Carbon Dioxide 36 mmol/L (22-30); Chloride 97 mmol/L (98-107); Estimated Glomerular Filt Rate 20; Glucose 124 mg/dL (65-110); Phosphorus 3.5 mg/dL (2.5-4.5); Potassium 3.8 mmol/L (3.4-5.0); Sodium 137 mmol/L (137-145)
== END 2023-05-13 11:26 | disposition home or self-care (01) ==
LOC: ANHLAB 11:27
PROVIDERS: Internal Medicine; PCP Internal Medicine; Visit Provider Internal Medicine Hematology & Oncology
DX: N18.4 Chronic kidney disease, stage 4 (severe) (principal)
CPT/HCPCS: 36415; 80069